=== PATIENT | female | born 1950 | race Caucasian/White ===

== ENCOUNTER → 2016-05-29 | Outpatient (CLI) | payer OTHER ==
[~2016-05-29] MED LIST: ACET-1256 PO; ALBU0.633 NEB; ALBU18002 INH; ALBUTEROL NEBULIZER NEB; ASPI81TA28 PO; CARV25TA2 PO; CELE100C PO; CLB/200 PO; CLB200 PO; DILT120C68 PO; ELQ25 PO; FRS/40 PO; GLIP10TA3 PO; INSDGI SC; KFZAV1 IV; LINA1TAB PO; LNX125 PO; METF-384 PO; MORP-157 PO; MULT-884 PO; NIAC500T11 PO; OMEG10007 PO; ONDA8TAB6 PO; OXGN; OXYC1TAB3 PO; POTA20TA16 PO; RFM300 PO; RXC5 PO; SENN-61 PO; SNK PO; SPIR25TA PO; TPZ5 PO
[2016-05-29 09:56] LABS: ESTIMATED AVERAGE GLUCOSE 189 mg/dl; HA1C FLAG Normal (Normal)
== END | disposition home or self-care (01) ==
LOC: C.LAB 08:36
PROVIDERS: ATTEND General Practice
DX: E11.9 Type 2 diabetes mellitus without complications (principal)

== ENCOUNTER → 2016-07-23 | Outpatient (CLI) | payer OTHER ==
[2016-07-23 10:11] LABS: ESTIMATED AVERAGE GLUCOSE 166 mg/dl; HA1C FLAG Normal (Normal)
== END | disposition home or self-care (01) ==
LOC: C.LAB 08:28
PROVIDERS: ATTEND General Practice
DX: E11.65 Type 2 diabetes mellitus with hyperglycemia (principal)

== ENCOUNTER → 2016-08-23 | Outpatient (CLI) | payer OTHER ==
[2016-08-23 13:01] LABS: ESTIMATED AVERAGE GLUCOSE 166 mg/dl; HA1C FLAG Normal (Normal)
== END | disposition home or self-care (01) ==
LOC: C.LAB 10:44
PROVIDERS: ATTEND General Practice
DX: E11.65 Type 2 diabetes mellitus with hyperglycemia (principal)

== ENCOUNTER 2016-09-18 06:26 | Inpatient (IN) | payer OTHER ==
--- NOTE | 2016-08-31 14:18 | PAT Medication Instructions ---
Service Date Aug 31, 2016. Current Home Medication List Acetaminophen (Tylenol), 1,000 MG PO Q8 PRN for Pain Albuterol Sulfate (Proair Respiclick), 2 PUFF INH Q4 PRN for SOB/Wheezing Apixaban (Eliquis), 5 MG PO BID Aspirin (Aspirin Ec), 81 MG PO QAM Carvedilol (Coreg), 25 MG PO BID Celecoxib (Celebrex), 100 MG PO Q2D Digoxin (Digoxin), 1 TAB PO HS Diltiazem Hcl Ext Rel (Tiazac), 120 MG PO HS Fish Oil (Hudson-3), 1 CAP PO BID Furosemide (Lasix), 40 MG PO BID Glipizide (Glucotrol), 10 MG PO BID Insulin Glargine (Lantus), 12 UNITS SC HS Linagliptin (Tradjenta), 1 TAB PO QAM Metformin Hcl (Glucophage), 1,000 MG PO BID Multiple Vitamin (Multi Vitamin Daily), 1 TAB PO QAM Niacin (Niacin), 500 MG PO QAM Oxygen (Oxygen), 1.5-2 LITERS NA HS/PRN PRN for Shortness of Breath Spironolactone (Aldactone), 25 MG PO QAM [Albuterol Nebulizer], 1 DOSE NEB Q4 PRN for SOB/Wheezing Medication Instructions For Your Scheduled Surgery - Check with surgeon/cardiology/family doctor for instructions: Apixaban (Eliquis), 5 MG PO BID (patient made aware that she needs to be off Eliquis for 72 hours prior to surgery in order for spinal block to be placed-- she will check with PCP/black top paver operator to see if okay from them) Oxygen (Oxygen), 1.5-2 LITERS NA HS/PRN PRN for Shortness of Breath (continue as directed) Celecoxib (Celebrex), 100 MG PO Q2D (check with surgeon for instructions) - Hold the following medications 2 weeks prior to surgery: Fish Oil (Hudson-3), 1 CAP PO BID - Hold the following medications 48 hours prior to surgery: Metformin Hcl (Glucophage), 1,000 MG PO BID - Hold the following medications the morning of surgery: Spironolactone (Aldactone), 25 MG PO QAM Niacin (Niacin), 500 MG PO QAM Multiple Vitamin (Multi Vitamin Daily), 1 TAB PO QAM Linagliptin (Tradjenta), 1 TAB PO QAM Glipizide (Glucotrol), 10 MG PO BID Furosemide (Lasix), 40 MG PO BID - Take the following medications the morning of surgery with a sip of water: [Albuterol Nebulizer], 1 DOSE NEB Q4 PRN for SOB/Wheezing Carvedilol (Coreg), 25 MG PO BID Aspirin (Aspirin Ec), 81 MG PO QAM Albuterol Sulfate (Proair Respiclick), 2 PUFF INH Q4 PRN for SOB/Wheezing ( bring with you to hospital morning of surgery) Acetaminophen (Tylenol), 1,000 MG PO Q8 PRN for Pain - Take the following medications as scheduled the night before surgery: [Albuterol Nebulizer], 1 DOSE NEB Q4 PRN for SOB/Wheezing Insulin Glargine (Lantus), 12 UNITS SC HS Glipizide (Glucotrol), 10 MG PO BID Furosemide (Lasix), 40 MG PO BID Diltiazem Hcl Ext Rel (Tiazac), 120 MG PO HS Digoxin (Digoxin), 1 TAB PO HS Carvedilol (Coreg), 25 MG PO BID Albuterol Sulfate (Proair Respiclick), 2 PUFF INH Q4 PRN for SOB/Wheezing Acetaminophen (Tylenol), 1,000 MG PO Q8 PRN for Pain If you have any questions please call us at [phone] (Ivon Baldwin PA-C) or [phone] or [phone]
[2016-08-31 14:44] LABS: BASO % 0.1 %; BASO ABS # 0.01 K/uL (0-0.2); COMPLETE YES; EOS % 0.6 %; HEMATOCRIT 39.5 % (37-47); IG% 0.1 %; LYMPH % 34.7 %; LYMPH ABS # 2.97 K/uL (1.2-3.4); MEAN CELL VOLUME 84.9 fL (80-100); MEAN CORPUSCULAR HEMOGLOBIN 28.6 pg (25-34); MEAN CORPUSCULAR HGB CONC 33.7 g/dl (32-36); MEAN PLATELET VOLUME 10.4 fL (7.4-10.4); MONO % 5.4 %; NEUT % 59.1 %; PLATELET COUNT 246 K/uL (130-400); RED BLOOD COUNT 4.65 M/uL (4.2-5.4); WHITE BLOOD COUNT 8.56 K/uL (4.8-10.8)
[2016-08-31 14:52] LABS: URINE APPEARANCE CLEAR (CLEAR); URINE BILIRUBIN NEG (NEG); URINE COLOR DK YELLOW; URINE EPITHELIAL CELL AUTO >30 /lpf (0-5); URINE NITRITE NEG (NEG); URINE SPECIFIC GRAVITY 1.028 (1.000-1.030); UROBILINOGEN NEG (NEG); ZZUR CULT IF INDIC CLEAN CATCH NO
[2016-08-31 14:54] LABS: PROTHROMBIN TIME (PATIENT) 10.2 SECONDS (9.0-12.0)
[2016-08-31 14:58] LABS: MANUAL MICROSCOPIC REQUIRED? NO; REVIEW REQ? NO
--- NOTE | 2016-08-31 14:58 | DIAGNOSTIC IMAGING REPORT ---
CHEST 2 VIEWS ROUTINE CLINICAL HISTORY: pat preoperative evaluation COMPARISON STUDY: 04/10/2016 FINDINGS: Permanent bipolar cardiac pacemaker/defibrillator. Mild emphysematous change. No acute infiltrate. Moderate degenerative change thoracic spine. IMPRESSION: Chronic and mild emphysematous change. No acute process. Electronically signed by: Brannon Stone M.D. 08/31/2016 2:56 PM Dictated Date/Time: 08/31/2016 2:55 PM
[2016-08-31 15:27] LABS: BUN/CREATININE RATIO 19.2 (10-20); CALCIUM 8.9 mg/dl (8.5-10.1); CREATININE 1.3 mg/dl (0.60-1.20)
--- NOTE | 2016-09-17 11:11 | HISTORY & PHYSICAL EXAMINATION ---
DATE OF ADMISSION: 09/18/2016 CHIEF COMPLAINT: Right knee pain. HISTORY OF PRESENT ILLNESS: Ms. Pierce is a 66-year-old female with a 10-year history of right knee pain. The patient rates her pain an 8/10. She has pain with her daily activities. She has limited standing and walking tolerance. Pain is worse with weightbearing. The patient has had injections, Celebrex, knee brace and physical therapy without relief. She has failed conservative treatment and is scheduled for right knee replacement. PAST MEDICAL HISTORY: CHF, heart disease with [place] in 2013, asthma, diabetes with A1c of 7.4, AFib. She denies history of DVT. PAST SURGICAL HISTORY: Cholecystectomy, tonsillectomy, pacemaker and hernia repair. SOCIAL HISTORY: The patient denies alcohol or tobacco use. She lives in a single story home. She lives alone. 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 FAMILY HISTORY: Negative for DVT. MEDICATIONS: Lantus 12 units at bedtime, glipizide 10 mg twice daily, Eliquis 5 mg twice daily, spironolactone 25 mg daily, carvedilol 25 mg b.i.d., metformin 1000 mg twice daily, fish oil 300 mg twice daily, diltiazem 120/24 daily, digoxin 0.125 mg daily, Tradjenta 5 mg daily, furosemide 40 mg twice daily, niacin 500 mg daily, multivitamin 1 daily, oxygen p.r.n., albuterol p.r.n., Celebrex twice daily. ALLERGIES: None. REVIEW OF SYSTEMS: See HPI. Ten other systems reviewed, all negative. PHYSICAL EXAMINATION: VITAL SIGNS: Height 5 foot 6 inches, weight 184 pounds, BMI 28. GENERAL: This is a well-developed, well-nourished female who is alert and oriented x3. Mood and affect are appropriate. HEAD, EYES, EARS, NOSE, AND THROAT: Normocephalic, atraumatic. Mucous membranes are moist and intact. NECK: Supple without lymphadenopathy. HEART: Regular rate and rhythm without murmurs, rubs or gallops. LUNGS: Clear to auscultation without wheezes or rhonchi. ABDOMEN: Soft and nontender. Bowel sounds are equal and active. EXTREMITIES: No ecchymosis, redness or warmth. She has varus deformity. Range of motion is 10-115 degrees with +1 to 2 laxity. She is neurovascularly intact with +5/5 strength. X-RAY EXAMINATION: AP and lateral views show joint space narrowing and osteophyte formation. She has loose bodies noted throughout the medial aspect. IMPRESSION: Degenerative joint disease, right knee. PLAN: The patient will be admitted for a right total knee arthroplasty. We will plan on resuming her Eliquis for DVT prophylaxis.
[2016-09-18] VITALS (10 sets, daily range): BP systolic 108–131; BP diastolic 51–82; PULSE 61–70; TEMP 36.4–36.9; O2SAT 92–98; Ht 167.6 cm; Wt 85.6 kg
[~2016-09-18] VITALS: Ht 167.6 cm; Wt 85.6 kg
[~2016-09-18 06:26] MED LIST changes: +ACETAMINOPHEN 500 MG TAB PO SCH; -ALBU0.633 NEB; +CEFAZOLIN 2000 MG/60 ML D5W 60 ML IV SCH; -CLB/200 PO; -CLB200 PO; +CeleBREX 200 MG CAP PO SCH; +FAMOTIDINE 20 MG TAB PO SCH; +GABAPENTIN 300 MG CAP PO SCH; -KFZAV1 IV; +LACTATED RINGER'S 1000ML 1,000 ML IV SCH; +METOCLOPRAMIDE HCL 10 MG TAB PO SCH; -MORP-157 PO; -ONDA8TAB6 PO; -OXYC1TAB3 PO; +OXYCODONE HCL 10 MG TABCR (OXYCONTIN) PO SCH; +POLYMYXIN B SULFATE 100,000 UNITS in NSS 100ML IR SCH; -POTA20TA16 PO; -RFM300 PO; +ROPIVACAINE 5MG/ML 30 ML 100 MG, METHYLPREDNISOLONE IV 40 MG, MoRPHine SULFATE 4 MG, Ep... INFIL SCH; +ROPIVACAINE 5MG/ML 30 ML 150 MG, BUPIVACAINE/EPINEPHR 0.5% MPF 30 ML, KETOROLAC TROMETH... INFIL SCH; -RXC5 PO; -SENN-61 PO; -SNK PO; -TPZ5 PO; +VANCOMYCIN INJ 400 MG in NSS 100ML IR SCH
[2016-09-18] MEDS ORDERED: FENTANYL CITRATE INJ 50 MCG/1 ML 2 ML VIAL ONE (06:56)
[2016-09-18] MEDS ORDERED: MIDAZOLAM HCL 1 MG/ML 2ML VIAL ONE ×2 (06:56)
--- NOTE | 2016-09-18 06:59 | History & Physical Bridge Note ---
H&P Re-Evaluation Bridge Note: I have examined the patient, reviewed the History & Physical and in the interval since the performance of the History & Physical I have noted the following changes of clinical significance: No changes noted
[2016-09-18] MEDS ORDERED: POVIDONE-IODINE OP SOLN 30 ML BTL ONE (07:03)
[2016-09-18] MEDS ORDERED: ORTHO JOINT ANESTHETIC ONE (07:03)
[2016-09-18] MEDS ORDERED: BACITRACIN 50000 UNIT VIAL ONE (07:03)
[2016-09-18] MEDS ORDERED: BUPIVACAINE/EPINEPHRINE 0.25% 1:200,000 30 ML VIAL ONE (07:03)
[2016-09-18] MEDS ORDERED: BUPIVACAINE 0.25% 30 ML VIAL ONE (07:15)
[2016-09-18] MEDS ORDERED: BUPIVACAINE 0.5 % 5 MG/1 ML PF 10ML VIAL ONE (07:15)
[2016-09-18] MEDS: TRANEXAMIC ACID INJ 1,000 MG in SODIUM CHLORIDE 0.9% 100ML 100 ML IV SCH ×2 (08:23→13:16)
[2016-09-18] MEDS ORDERED: PROPOFOL IV EMULSION 10 MG/ML 20 ML VIAL IV ONE (09:12)
[2016-09-18] MEDS ORDERED: LIDOCAINE HCL 2% 2 ML VIAL (20MG/ML) ONE (09:12)
[2016-09-18] MEDS ORDERED: PHENYLEPHRINE 100MCG/ML 5ML SYR IV PRN (09:15)
[2016-09-18] MEDS ORDERED: ONDANSETRON INJ 2 MG/ML 2 ML VIAL IV PRN ×2 (09:15→10:00)
[2016-09-18] MEDS ORDERED: HYDROmorphone INJ 2 MG/ML SYR/VIAL IV PRN (09:15)
[2016-09-18] MEDS ORDERED: EpHEDrine SULFATE INJ 50 MG/ML AMP IV PRN (09:15)
[2016-09-18] MEDS ORDERED: KETOROLAC TROMETHAMINE 30 MG/ML VIAL IV. PRN (09:15)
[2016-09-18] MEDS ORDERED: ATROPINE SULFATE 0.1 MG/ML 5ML SYR IV PRN (09:15)
[2016-09-18] MEDS ORDERED: PHENYLEPHRINE 100MCG/ML 5ML SYR ONE (09:22)
[2016-09-18] MEDS ORDERED: ZOLPIDEM TARTRATE 5 MG TAB PO PRN (10:00)
[2016-09-18] MEDS ORDERED: MoRPHine SULFATE 2 MG/ML CARP IV PRN (10:00)
[2016-09-18] MEDS ORDERED: DiphenhydrAMINE HCL 50 MG/ML VIAL IV PRN (10:00)
[2016-09-18] MEDS ORDERED: TRAMADOL HCL 50 MG TAB PO PRN (10:00)
[2016-09-18] MEDS ORDERED: ALBUTEROL HFA 8 GM INHALER INH PRN (10:00)
[2016-09-18] MEDS ORDERED: KETOROLAC TROMETHAMINE 15 MG/ML VIAL IV. PRN (10:00)
[2016-09-18] MEDS ORDERED: METOCLOPRAMIDE HCL INJ 5 MG/ML 2 ML VIAL IV PRN (10:00)
[2016-09-18] MEDS ORDERED: SOD PHOSPHATE/SOD BIPHOSPHATE ENEMA 132 ML BTL PR PRN (10:00)
[2016-09-18] MEDS ORDERED: MAGNESIUM HYDROXIDE SUSP 30 ML UDC PO PRN (10:00)
[2016-09-18] MEDS ORDERED: ALUMINUM/MAGNESIUM/SIMETH (MAALOX MAX) 30 ML UDC PO PRN (10:00)
[2016-09-18] MEDS ORDERED: BISACODYL 10 MG SUPP PR PRN (10:00)
--- NOTE | 2016-09-18 11:18 | DIAGNOSTIC IMAGING REPORT ---
RIGHT KNEE 1 OR 2 VIEWS ROUTINE CLINICAL HISTORY: Degenerative arthritis COMPARISON: None. DISCUSSION: There are postsurgical changes of a total right knee arthroplasty and patellar resurfacing. The femoral and tibial components appear well seated. Ovoid surgical drains are evident. There is air in soft tissues consistent with recent surgery. Multiple eggshell calcifications are suspected visualized adjacent to the medial tibial metaphysis IMPRESSION: Postsurgical changes of a total right knee arthroplasty. Electronically signed by: Jaison Gallo M.D. 09/18/2016 11:16 AM Dictated Date/Time: 09/18/2016 11:14 AM
--- NOTE | 2016-09-18 11:40 | Anesthesiology Progress Note ---
Anesthesia Post Op Note Date & Time Sep 18, 2016 at 11:39 Vital Signs Pain Intensity: 0 Vital Signs Past 12 Hours Date Time Temp Pulse Resp B/P Pulse Ox O2 Delivery O2 Flow Rate FiO2 09/18/16 11:20 36.3 64 16 127/59 96 Nasal Cannula 2 09/18/16 11:10 64 16 113/60 96 Nasal Cannula 2 09/18/16 11:00 64 16 117/60 96 Nasal Cannula 2 09/18/16 10:50 64 16 105/59 96 Nasal Cannula 2 09/18/16 10:40 36.4 64 16 106/60 99 Nasal Cannula 2 09/18/16 07:13 36.5 66 18 115/51 93 Room Air Notes Mental Status: alert / awake / arousable, participated in evaluation Pt Amnestic to Procedure: Yes Nausea / Vomiting: adequately controlled Pain: adequately controlled Airway Patency, RR, SpO2: stable & adequate BP & HR: stable & adequate Hydration State: stable & adequate Anesthetic Complications: no major complications apparent
[2016-09-18] MEDS ORDERED: GLUCAGON FOR INJ 1 MG VIAL SQ PRN (13:00)
[2016-09-18] MEDS ORDERED: GLUCOSE 10 TABS/TUBE PO PRN (13:00)
[2016-09-18] MEDS ORDERED: DEXTROSE 50% 50 ML SYR IV PRN (13:00)
[2016-09-18] MEDS ORDERED: GLUCOSE 40% GEL 15 GM TUBE PO PRN (13:00)
[2016-09-18] MEDS ORDERED: PHARMACY GLYCEMIC MGMT CONSULT PRN (13:12)
[2016-09-18] MEDS ORDERED: ALBUTEROL 0.083% NEBU SOLN 3 ML VIAL INH PRN (13:15)
[2016-09-18] MEDS: SODIUM CHLORIDE 0.9% 1000ML 1,000 ML IV SCH ×2 (13:18→20:55)
--- NOTE | 2016-09-18 13:36 | Pharmacy Progress Note ---
Glycemic Control Intl Consult Date of Service Sep 18, 2016. Scope Glycemic Pharmacist consulted by Dr Juan Mays on 09/18/16 for glycemic control and to write orders per [facility] inpatient glycemic control protocol Objective Weight (Kilograms): 85.600 Accuchecks BSG (last 24hrs): Test 09/18/16 07:11 09/18/16 10:47 Bedside Glucose 208 mg/dl (70-90) 162 mg/dl (70-90) Recent Pertinent Medications Outpatient Anti-diabetic Regimen: * Lantus 12 units SQ q PM * Glipizide 10mg PO BID with meals * Metformin 1000mg PO BID * Linagliptin 5mg PO q AM * A1c = 7.4 % 08/23/16 The patient is currently receiving: * Basal insulin: * Lantus 12 units every 24 hours, dose in the evening * Oral Agents: * glipizide 10mg PO BID * linagliptin 5mg PO q AM Risk Factors for Insulin Resistance: * Infection: cefazolin marybel-operatively * IVF: LR --> NSS post-operatively * Recent Surgery: POD #0 right TKA * Diet: T2DM Assessment & Plan ASSESSMENT: * ADA & AACE recommend a goal blood sugar range 140-180 mg/dl for the majority of critically ill & non-critically ill patients. However, more stringent targets may be selected in individual cases. Will utilize more stringent goal of 100-140mg/dl based on patient age & comorbidities. Additionally, tighter glycemic control is warranted to facilitate wound/infection healing. * 66 y/o who enjoys good glycemic control as an outpatient with both injectable and oral diabetic medications * Oral agents are not recommended for inpatient use d/t drug interactions, changing PO intake, and difficulty titrating for acute hyper/hypoglycemia. ADA recommends re-initiating outpatient oral agents 1-2 days prior to discharge if/ when appropriate if they were held on admission. * Current A1c 7.4% is at/near goal and up to date * Admitted post right TKA with Dr. Mays 09/18/16 * BSG on admission (fasting) slightly elevated at 208mg/dL, but trended down toward goal without the administration of insulin (IV fluids, NPO status) * Continue home basal insulin (would normally reduce, however bsg elevated this AM on fasting check) * No steroids administered perioperatively * Current oral medications will be held until PO intake established/closer to discharge * Begin bolus insulin with NovoLog to replace PO medications while admitted * sliding scale plus prandial coverage based on weight * titrate based on BSG trends. PLAN FOR INPATIENT GLYCEMIC CONTROL: * Basal insulin with Lantus * 12 units SQ q PM * Bolus insulin with NovoLog * Accu-checks AC and HS * Goal range: 100-140mg/dL as per above * Correction factor: 30 mg/dL/unit * Carb ratio: 1 unit per 10 g of CHO consumed * Oral agents: * Hold metformin * hold glipizide * hold linagliptin * A1c - current * add to discharge instructions RECOMMENDATIONS FOR DISCHARGE: * Likely, Ms Pierce can continue her home regimen based on her level of glycemic control from A1c. * Please note that the plan above was derived based on current level of insulin resistance and hospital stress. These recommendations are appropriate for inpatient admission only. Plan of care upon discharge will need to be reassessed to avoid potential outpatient hypo/hyperglycemia. Thank you.
[2016-09-18] MEDS: ACETAMINOPHEN 500 MG TAB PO SCH ×2 (13:58→22:13)
--- NOTE | 2016-09-18 16:59 | OPERATIVE REPORT ---
DATE OF OPERATION: 09/18/2016 PREOPERATIVE DIAGNOSIS: Degenerative arthritis, right knee. POSTOPERATIVE DIAGNOSIS: Same. PROCEDURE: Right total knee replacement. SURGEON: Dr. Nando Mays. MACHINE MAINTENANCE REPAIRER: MOJGAN Washburn. ANESTHESIA: Spinal. BLOOD LOSS: 75 mL. REPLACEMENT FLUIDS: 1800 mL of crystalloid. DRAINS: Hemovac x2. CULTURES: None. COMPLICATIONS: None. COMPONENTS USED: [facility] Knee System: Femur size 6, tibia size 5 x 11, and patella size 35. NOTE: Ian Alvarez was present and assisted throughout due to the complicated nature of this case. He helped with preparation and setup. He first assisted throughout and personally closed the capsule, subcutaneous and skin layers and applied the postoperative dressing. DESCRIPTION OF PROCEDURE: Following satisfactory spinal, the patient was supine. A tourniquet was placed, but not inflated. The lower extremity was prepared with ChloraPrep and draped sterilely. Following a surgical timeout, a median parapatellar arthrotomy was performed. The patient had a large subcutaneous fat layer with a very heavy leg and severe arthritis. The IM alignment system with a 5-degree valgus cut was performed. The femur was sized and shaped for a size 6 posterior stabilized component and all femoral cuts were completed. Attention was turned to the femur. The femur was resected with the extramedullary alignment guide in neutral varus/valgus and 3 degrees of posterior slope. The patella was freehand cut. Soft tissue balancing was completed and a trial reduction showed good tensioning and stability on the collateral ligaments, stable range of motion, and the patella tracked well. The trial components were removed. The capsule was prepared with the orthopedic cocktail. After irrigation, the components were cemented using Simplex G cement. A Betadine soak was performed. When the cement had hardened, the Betadine was irrigated. The capsule was closed with a running suture of 0 V-Loc and reinforced with #1 Vicryl. Subcutaneous tissues in the fatty layer was closed in layers with #1 and 2-0 Vicryl and the skin with a running subcuticular stitch of 3-0 V-Loc. Dermabond, silver nitrate dressing and Prevena wound VAC were applied. The patient was returned to her bed in stable condition. I attest to the content of the Intraoperative Record and any orders documented therein. Any exceptio ns are noted below.
[2016-09-18] MEDS ORDERED: TRANEXAMIC ACID INJ 1,000 MG in SODIUM CHLORIDE 0.9% 100ML 100 ML IV SCH (17:00)
[2016-09-18] MEDS: FUROSEMIDE 40 MG TAB PO SCH (17:04)
[2016-09-18] MEDS: DIGOXIN 0.125 MG TAB PO SCH (17:04)
[2016-09-18] MEDS: CEFAZOLIN IV 2,000 MG in DEXTROSE 5% 50ML 50 ML IV SCH (18:04)
[2016-09-18] MEDS: INSULIN ASPART 100 UNITS/ML 3 ML PEN SC SCH ×2 (18:49→20:52)
[2016-09-18] MEDS: OXYCODONE HCL 10 MG TABCR (OXYCONTIN) PO SCH (20:55)
[2016-09-18] MEDS: SENNA 8.6 MG TAB PO SCH (20:59)
[2016-09-18] MEDS: CARVEDILOL 25 MG TAB PO SCH (20:59)
[2016-09-18] MEDS: DILTIAZEM HCL 120 MG EXT REL CAP PO SCH (21:00)
[2016-09-18] MEDS: INSULIN GLARGINE SOLOSTAR 100 UNITS/ML 3 ML PEN SC SCH (21:04)
[2016-09-19] MEDS: CEFAZOLIN IV 2,000 MG in DEXTROSE 5% 50ML 50 ML IV SCH (02:18)
[2016-09-19 03:22] VITALS: BP 119/63; PULSE 60; TEMP 36.6; O2SAT 94
[2016-09-19 06:01] LABS: HEMATOCRIT 33.3 % (37-47); MEAN CELL VOLUME 86.5 fL (80-100); MEAN CORPUSCULAR HEMOGLOBIN 28.3 pg (25-34); MEAN CORPUSCULAR HGB CONC 32.7 g/dl (32-36); MEAN PLATELET VOLUME 10.4 fL (7.4-10.4); PLATELET COUNT 229 K/uL (130-400); RED BLOOD COUNT 3.85 M/uL (4.2-5.4); WHITE BLOOD COUNT 12.84 K/uL (4.8-10.8)
--- NOTE | 2016-09-19 06:02 | Clinical Documentation Query ---
CLINICAL DOCUMENTATION QUERY 66-y/o female who has undergone right TKR. H&P mentions this patient as having CHF. The medical record documentation is now expected to include definitive and explicit description of the patient's heart failure; vague terms such as "heart failure," ventricular dysfunction," and "CHF" may not fully capture the physician's intended level of severity. In your clinical opinion is this patient being managed for: ( ) Chronic diastolic (Preserved EF) heart failure ( ) Chronic Systolic (Reduced EF) heart failure ( ) Other explanation of clinical findings (Please Explain) ( ) Unable to determine (Please Define) ( ) Need to Discuss ( ) Not Agree The medical record reflects the following clinical findings, treatment, and risk factors. Clinical Indicators: As above. On PO Lasix at home Treatment: PO Lasix, Coreg, Diltiazem, Digoxin, Risk Factors: Age, CAD s/p [place], and AFib Please clarify and document your clinical opinion in the progress notes and discharge summary. Terms such as "probable", "suspected", "likely", "questionable", "possible", or "still to be ruled out" are acceptable. IF IN AGREEMENT, YOU MUST DOCUMENT ABOVE DIAGNOSTIC STATEMENT IN DAILY PROGRESS NOTES AND DISCHARGE SUMMARY. This document is not part of the patient's record. Thank You, Jb Becker RN [phone]
[2016-09-19] MEDS: SODIUM CHLORIDE 0.9% 1000ML 1,000 ML IV SCH (06:13)
[2016-09-19] MEDS: ACETAMINOPHEN 500 MG TAB PO SCH ×3 (06:14→22:08)
[2016-09-19 06:35] LABS: BUN/CREATININE RATIO 18.6 (10-20); CALCIUM 8.5 mg/dl (8.5-10.1); CREATININE 0.91 mg/dl (0.60-1.20); POTASSIUM 4.5 mmol/L (3.5-5.1)
[2016-09-19 07:32] VITALS: BP 134/76; PULSE 60; TEMP 36.6; O2SAT 96
--- NOTE | 2016-09-19 08:13 | Orthopedic Progress Note ---
Orthopedic Progress Note Date of Service Sep 19, 2016. Subjective Post OP Day: 1 Reports: feeling well, Denies: SOB, calf pain, chest pain, light headedness, nausea / vomiting Objective calves soft nontender, N/V intact, dressing C/D/I (PREVENA), A&O x3, toes mobile , hemovac drainage (225/125cc per shift) Date Time Temp Pulse Resp B/P Pulse Ox O2 Delivery O2 Flow Rate FiO2 09/19/16 07:32 36.6 60 16 134/76 96 Room Air 09/19/16 03:22 36.6 60 16 119/63 94 Nasal Cannula 2.0 09/18/16 23:30 36.8 61 16 116/65 96 Nasal Cannula 2.0 09/18/16 23:19 Nasal Cannula 2.0 09/18/16 20:50 70 131/73 09/18/16 19:51 36.5 62 18 127/82 92 Nasal Cannula 2.0 09/18/16 17:04 72 09/18/16 16:00 Room Air 2.0 09/18/16 15:04 36.4 65 18 111/68 97 Nasal Cannula 09/18/16 14:45 64 18 108/68 96 Nasal Cannula 2.0 09/18/16 13:45 63 16 117/68 95 Nasal Cannula 2.0 09/18/16 12:44 65 16 120/75 95 Nasal Cannula 2.0 09/18/16 12:13 36.5 67 20 126/71 98 Nasal Cannula 2.0 09/18/16 11:45 36.9 67 16 110/68 95 Nasal Cannula 2.0 09/18/16 11:45 95 Nasal Cannula 2.0 09/18/16 11:45 95 Nasal Cannula 2.0 09/18/16 11:20 36.3 64 16 127/59 96 Nasal Cannula 2 09/18/16 11:10 64 16 113/60 96 Nasal Cannula 2 09/18/16 11:00 64 16 117/60 96 Nasal Cannula 2 09/18/16 10:50 64 16 105/59 96 Nasal Cannula 2 09/18/16 10:40 36.4 64 16 106/60 99 Nasal Cannula 2 Laboratory Results 24 Hours: Test 09/19/16 05:35 Hematocrit 33.3 % Hemoglobin 10.9 g/dL Assessment & Plan Assessment: POD#1 sp right TKA Inhouse Planning Pain Management: Celebrex, Oxycontin, PO Tylenol, Oxy IR DVT Prophylaxis: TEDs, SCDs, ASA, other (ELIQUIS) Discharge Planning Discharge Planning: home with home health ([facility])
[2016-09-19] MEDS: INSULIN ASPART 100 UNITS/ML 3 ML PEN SC SCH ×4 (08:58→20:53)
[2016-09-19] MEDS: FUROSEMIDE 40 MG TAB PO SCH ×2 (08:59→17:15)
[2016-09-19] MEDS: CARVEDILOL 25 MG TAB PO SCH ×2 (08:59→20:41)
[2016-09-19] MEDS: MULTIVITAMIN TAB PO SCH (08:59)
[2016-09-19] MEDS: PANTOprazole SOD 40 MG TAB PO SCH (08:59)
[2016-09-19] MEDS: NIACIN 500 MG TAB IMMEDIATE RELEASE PO SCH (09:00)
[2016-09-19] MEDS: SPIRONOLACTONE 25 MG TAB PO SCH (09:00)
[2016-09-19] MEDS ORDERED: NON-FORMULARY PATIENT'S OWN MED PO SCH (09:00)
[2016-09-19] MEDS: LINAGLIPTIN 5 MG TAB PO SCH (09:01)
[2016-09-19] MEDS: OXYCODONE HCL 10 MG TABCR (OXYCONTIN) PO SCH ×2 (09:08→20:41)
[2016-09-19] MEDS: APIXABAN 2.5 MG TAB PO SCH ×2 (10:04→20:42)
[2016-09-19] MEDS: ASPIRIN 81 MG ECTAB PO SCH (10:04)
[2016-09-19 11:09] VITALS: BP 112/64; PULSE 59; TEMP 36.7; O2SAT 93
[2016-09-19] MEDS: OXYCODONE HCL IR 5 MG TAB (IMMEDIATE RELEASE) PO PRN ×2 (12:12→20:13)
--- NOTE | 2016-09-19 13:14 | Anesthesiology Progress Note ---
Anesthesia Post Op Note Date & Time Sep 19, 2016 at 13:13 Vital Signs Pain Intensity: 9.0 Vital Signs Past 12 Hours Date Time Temp Pulse Resp B/P Pulse Ox O2 Delivery O2 Flow Rate FiO2 09/19/16 11:09 36.7 59 16 112/64 93 Room Air 09/19/16 07:55 Room Air 92 09/19/16 07:32 36.6 60 16 134/76 96 Room Air 09/19/16 03:22 36.6 60 16 119/63 94 Nasal Cannula 2.0 Notes Mental Status: alert / awake / arousable, participated in evaluation Pt Amnestic to Procedure: Yes Nausea / Vomiting: adequately controlled Pain: adequately controlled Airway Patency, RR, SpO2: stable & adequate BP & HR: stable & adequate Hydration State: stable & adequate Neuraxial Anesthesia: sensory block resolved Anesthetic Complications: no major complications apparent
--- NOTE | 2016-09-19 14:19 | Pharmacy Progress Note ---
Glycemic Control: Progress Nt Date of Service Sep 19, 2016. Scope Glycemic Pharmacist consulted by Dr Mays on 09/18/16 for glycemic control and to write orders per [facility] inpatient glycemic control protocol. Objective Accuchecks BSG (last 24hrs): Test 09/18/16 16:53 09/18/16 20:30 09/19/16 05:35 09/19/16 07:54 Bedside Glucose 233 mg/dl (70-90) 283 mg/dl (70-90) 231 mg/dl (70-90) Random Glucose 265 mg/dl (70-99) Test 09/19/16 12:06 Bedside Glucose 225 mg/dl (70-90) Laboratory Data (last 24hrs) Test 09/19/16 05:35 Anion Gap 5.0 mmol/L BUN/Creatinine Ratio 18.6 Blood Urea Nitrogen 17 mg/dl Creatinine 0.91 mg/dl Potassium Level 4.5 mmol/L Sodium Level 136 mmol/L White Blood Count 12.84 K/uL Recent Pertinent Medications Outpatient Anti-diabetic Regimen: * Lantus 12 units SQ q PM * Glipizide 10mg PO BID with meals * Metformin 1000mg PO BID * Linagliptin 5mg PO q AM * A1c = 7.4 % 08/23/16 The patient is currently receiving: * Basal insulin: * Lantus 12 units every 24 hours, dose in the evening * Bolus insulin: * NovoLog SC AC and HS * Correction factor 30mg/dL/unit * Carb ratio 1 unit per 10g of CHO consumed * Goal range 100-140mg/dL/unit * Oral Agents: * -[id number]- -1-0-m-g- -P-O- -B-I-D- (on hold) * linagliptin 5mg PO q AM Risk Factors for Insulin Resistance: * Recent Surgery: POD #1 right TKA * Diet: T2DM Assessment & Plan ASSESSMENT: * ADA & AACE recommend a goal blood sugar range 140-180 mg/dl for the majority of critically ill & non-critically ill patients. However, more stringent targets may be selected in individual cases. Will utilize more stringent goal of 100-140mg/dl based on patient age & comorbidities. Additionally, tighter glycemic control is warranted to facilitate wound/infection healing. * 66 y/o who enjoys good glycemic control as an outpatient with both injectable and oral diabetic medications * Oral agents are not recommended for inpatient use d/t drug interactions, changing PO intake, and difficulty titrating for acute hyper/hypoglycemia. ADA recommends re-initiating outpatient oral agents 1-2 days prior to discharge if/ when appropriate if they were held on admission. * Current A1c 7.4% is at/near goal and up to date * Admitted post right TKA with Dr. Mays 09/19/16 * BSGs elevated over the past 24 hours with basal/bolus regimen * tighten NovoLog parameters - may need to loosen tomorrow as oral antidiabetic agents "kick in" * continue same basal insulin (home dose) * Resume home metformin and linagliptin today to help achieve euglycemia * Continue to hold sulfonylurea until discharge as to not induce hypoglycemia PLAN FOR INPATIENT GLYCEMIC CONTROL: * Basal insulin with Lantus * 12 units SQ q PM * Bolus insulin with NovoLog * Accu-checks AC and HS * Goal range: 100-140mg/dL as per above * Correction factor: 25 mg/dL/unit * Carb ratio: 1 unit per 9 g of CHO consumed * Oral agents: * RESUME metformin * hold glipizide * RESUME linagliptin * A1c - current * add to discharge instructions RECOMMENDATIONS FOR DISCHARGE: * Likely, Ms Pierce can continue her home regimen based on her level of glycemic control from A1c. * Please note that the plan above was derived based on current level of insulin resistance and hospital stress. These recommendations are appropriate for inpatient admission only. Plan of care upon discharge will need to be reassessed to avoid potential outpatient hypo/hyperglycemia. Thank you.
[2016-09-19 16:03] VITALS: BP 151/79; PULSE 66; TEMP 36.4; O2SAT 95
[2016-09-19] MEDS: DIGOXIN 0.125 MG TAB PO SCH (16:18)
[2016-09-19] MEDS: METFORMIN HCL 500 MG TAB PO SCH (17:15)
[2016-09-19] MEDS: DILTIAZEM HCL 120 MG EXT REL CAP PO SCH (20:42)
[2016-09-19] MEDS: SENNA 8.6 MG TAB PO SCH (20:42)
[2016-09-19] MEDS: INSULIN GLARGINE SOLOSTAR 100 UNITS/ML 3 ML PEN SC SCH (20:54)
[2016-09-19 23:05] VITALS: BP 111/62; PULSE 71; TEMP 36.8; O2SAT 97
--- NOTE | 2016-09-20 05:21 | Clinical Documentation Query ---
CLINICAL DOCUMENTATION QUERY 66-y/o female who has undergone right TKR. H&P mentions this patient as having CHF. The medical record documentation is now expected to include definitive and explicit description of the patient's heart failure; vague terms such as "heart failure," ventricular dysfunction," and "CHF" may not fully capture the physician's intended level of severity. In your clinical opinion is this patient being managed for: ( ) Chronic diastolic (Preserved EF) heart failure ( ) Chronic Systolic (Reduced EF) heart failure ( ) Other explanation of clinical findings (Please Explain) ( ) Unable to determine (Please Define) (x ) Need to Discuss ( ) Not Agree The medical record reflects the following clinical findings, treatment, and risk factors. Clinical Indicators: As above. On PO Lasix at home Treatment: PO Lasix, Coreg, Diltiazem, Digoxin, Risk Factors: Age, CAD s/p [place], and AFib Please clarify and document your clinical opinion in the progress notes and discharge summary. Terms such as "probable", "suspected", "likely", "questionable", "possible", or "still to be ruled out" are acceptable. IF IN AGREEMENT, YOU MUST DOCUMENT ABOVE DIAGNOSTIC STATEMENT IN DAILY PROGRESS NOTES AND DISCHARGE SUMMARY. This document is not part of the patient's record. Thank You, Jb Becker RN [phone]
[2016-09-20] MEDS: ACETAMINOPHEN 500 MG TAB PO SCH (05:36)
[2016-09-20 07:29] VITALS: BP 127/66; PULSE 63; TEMP 36.6; O2SAT 92
[2016-09-20] MEDS: OXYCODONE HCL IR 5 MG TAB (IMMEDIATE RELEASE) PO PRN ×2 (07:38→11:35)
--- NOTE | 2016-09-20 07:58 | Orthopedic Progress Note ---
Orthopedic Progress Note Date of Service Sep 20, 2016. Subjective Post OP Day: 2 Reports: feeling well, Denies: SOB, calf pain, chest pain, light headedness, nausea / vomiting Objective calves soft nontender, N/V intact, dressing C/D/I, A&O x3, toes mobile Date Time Temp Pulse Resp B/P Pulse Ox O2 Delivery O2 Flow Rate FiO2 09/20/16 07:29 36.6 63 20 127/66 92 Room Air 09/20/16 07:25 Room Air 09/20/16 00:20 Nasal Cannula 2.0 09/19/16 23:05 36.8 71 16 111/62 97 Nasal Cannula 2.0 09/19/16 16:18 68 09/19/16 16:03 36.4 66 18 151/79 95 Nasal Cannula 2.0 09/19/16 15:49 Room Air 2.0 Nasal Cannula 09/19/16 11:09 36.7 59 16 112/64 93 Room Air Assessment & Plan Assessment: POD#2 sp right TKA Inhouse Planning Pain Management: Celebrex, Oxycontin, PO Tylenol, Oxy IR DVT Prophylaxis: TEDs, SCDs, ASA, other (ELIQUIS) Discharge Planning Discharge Planning: home with home health ([facility])
--- NOTE | 2016-09-20 07:59 | Discharge Instructions ---
Discharge Instructions Date of Service Sep 20, 2016. Admission Reason for Admission: Right Knee Degenerative Arthritis Discharge Discharge Diagnosis / Problem: SP RIGHT TKA Discharge Goals Goal(s): Decrease discomfort, Improve function, Increase independence Activity Recommendations Activity Limitations: per Instructions/Follow-up section . Instructions / Follow-Up Instructions / Follow-Up ACTIVITY RECOMMENDATIONS: SELF CARE INSTRUCTIONS AFTER TOTAL KNEE REPLACEMENT A. You may need to continue a physical therapy program after discharge from the hospital. There are several options available to you. Your doctor will assist you in selecting the best one for you. 1. An out-patient facility 2 to 3 times a week for therapy or home therapy. 2. Continue working on all exercises taught to you in the hospital. Your goals should be to increase bending of your knee to 90 degrees and beyond and to fully straighten your knee. B. You may progress at your own pace from walking with a walker or crutches to a cane; then to no assistive devices. C. Make walking a part of your daily routine. Be up as much as comfortable with rest periods throughout the day. Rest with leg elevation is very important. Use the ice wrap frequently for the first 3-4 weeks. D. There are no restrictions on activities. You may ride in a car, shop, participate in investigation division captain and all social activities. E. Wear the long elastic stockings (PARAMJIT hose) 20 hours a day for 2 weeks after surgery. They can be removed several times a day for laundering and for a bath. F. You may shower, no tub baths until cleared by your doctor. SPECIAL CARE INSTRUCTIONS: VERY IMPORTANT TO READ AND REVIEW A. There are a few signs you need to watch for after you are home. Call [facility] if you notice any of the followin. Increased severe knee pain. Some pain is expected especially when you exercise. 2. Increased swelling in your leg or knee; pain or swelling of the calf muscle in either lower leg. 3. Any fluid drainage from the incision. 4. Shortness of breath or chest pain. B. Please call [facility] at if you have any concerns or questions about your operation or recovery. The doctor or his nurse will return your call promptly. C. You must take antibiotics before dental work, bladder, bowel or other surgery. Your doctor will provide you with a permanent care to carry describing this precaution. IMPORTANT: * REMEMBER TO TAKE ASPIRIN, 81 MG, TWICE DAILY FOR 4 WEEKS UNLESS OTHERWISE DIRECTED. THIS IS YOUR BLOOD THINNER. * HIGH RISK PATIENTS MAY BE PRESCRIBED A STRONGER BLOOD THINNER. THIS WILL BE PROVIDED AT DISCHARGE. - RESUME ELIQUIS * CALL IF INCREASED PAIN, REDNESS, DRAINAGE OR FEVER GREATER THAT 101. * WEAR PARAMJIT HOSE 20 HOURS PER DAY FOR 2 WEEKS. Prevena- This is a large suction dressing covering your incision. This will help pull any excess drainage from the wound and allow your incision to heal properly. You may shower with this if you can keep the unit outside of the shower. If any bleeding or leakage is noted please call your doctor's office. This will remain on your incision for 7 days and then should be removed. This can be done yourself or by the home nursing staff if applicable. The entire unit is disposable once removed. Once removed, keep incision clean and dry. If redness or drainage is noted, please call your surgeon. FOLLOW UP VISIT: If appointment is not already scheduled: Please call [facility] to make a follow-up appointment for 2 weeks after your surgery at . Current Hospital Diet Patient's current hospital diet: Diabetes Type 2 Diet Discharge Diet Recommended Diet: Regular Diet Procedures Procedures Performed: Right Total Knee Arthroplasty Pending Studies Studies pending at discharge: no Laboratory Results Hemoglobin A1c Test 08/23/16 11:05 Range/Units Estimated Average Glucose 166 mg/dl Hemoglobin A1c 7.4 H 4.5-5.6 % Medical Emergencies . Who to Call and When: Medical Emergencies: If at any time you feel your situation is an emergency, please call 911 immediately. . Non-Emergent Contact Non-Emergency issues call your: Surgeon . "Provider Documentation" section prepared by Tiff Kapoor. . VTE Core Measure Inpt VTE Proph given/why not?: Other Anticoagulation, T.E.D. Stockings, SCD's [place] Drug Monitoring Program Search Results: patient reviewed within database, no issues identified
[2016-09-20] MEDS ORDERED: MORP-157 PO (08:03)
[2016-09-20] MEDS ORDERED: RXC5 PO (08:03)
[2016-09-20] MEDS ORDERED: ONDA8TAB6 PO (08:03)
[2016-09-20] MEDS ORDERED: SNK PO (08:03)
[2016-09-20] MEDS ORDERED: ACET-1256 PO (08:03)
[2016-09-20] MEDS ORDERED: CLB200 PO (08:03)
[2016-09-20] MEDS: PANTOprazole SOD 40 MG TAB PO SCH (08:47)
[2016-09-20] MEDS: METFORMIN HCL 500 MG TAB PO SCH (08:47)
[2016-09-20] MEDS: CARVEDILOL 25 MG TAB PO SCH (08:48)
[2016-09-20] MEDS: SPIRONOLACTONE 25 MG TAB PO SCH (08:48)
[2016-09-20] MEDS: ASPIRIN 81 MG ECTAB PO SCH (08:49)
[2016-09-20] MEDS: NIACIN 500 MG TAB IMMEDIATE RELEASE PO SCH (08:49)
[2016-09-20] MEDS: APIXABAN 2.5 MG TAB PO SCH (08:50)
[2016-09-20] MEDS: MULTIVITAMIN TAB PO SCH (08:50)
[2016-09-20] MEDS: FUROSEMIDE 40 MG TAB PO SCH (08:50)
[2016-09-20] MEDS: LINAGLIPTIN 5 MG TAB PO SCH (08:51)
[2016-09-20] MEDS: INSULIN ASPART 100 UNITS/ML 3 ML PEN SC SCH ×2 (08:55→13:09)
[2016-09-20] MEDS: OXYCODONE HCL 10 MG TABCR (OXYCONTIN) PO SCH (08:56)
[2016-09-20 09:39] VITALS: BP 127/66; PULSE 63; TEMP 36.6; O2SAT 92
--- NOTE | 2016-09-20 13:54 | DISCHARGE SUMMARY ---
DATE OF DISCHARGE: 09/20/2016. DISCHARGE DIAGNOSIS: Degenerative joint disease, right knee. SECONDARY DIAGNOSES: Congestive heart failure, coronary artery disease with myocardial infarction in 2014, asthma, diabetes mellitus. CONSULTS: None. COMPLICATIONS: None. PROCEDURES: Right total knee arthroplasty performed by Dr. Juan Mays on 09/18/2016. BRIEF HISTORY: As dictated in history and physical. HOSPITAL SUMMARY: The patient was admitted on the above date and had the above-noted surgery performed which she tolerated well. On the first postoperative day, she was feeling well and had no complaints. Calves were soft and nontender, neurovascularly intact. Dressings were intact. Toes were mobile. Vital signs were stable. She was afebrile. Hemoglobin was 10.9 and she was started on physical therapy protocol and continued on DVT prophylaxis and pain management. By her second postoperative day, she continued to feel well and had no complaints. Dressings were intact, neurovascularly intact. Toes were mobile. She was progressing well with her physical therapy. Vital signs were stable and it was felt she could be discharged to home. For further review, please see chart. LAB AND X-RAY DATA: As per chart. DISCHARGE INSTRUCTIONS: The patient was discharged to home in satisfactory condition on 09/20/2016. DIET: Diabetic. ACTIVITY: Follow TKA instruction sheets and special care instructions as noted. Follow up with Dr. Juan Mays in 2 weeks. The patient to call for appointment if one has not been made for you. DISCHARGE MEDICATIONS: Celebrex 200 mg p.o. b.i.d., MS Contin 15 mg p.o. q. 12 hours, Zofran 8 mg p.o. q. 8 hours p.r.n. nausea, oxycodone 5-10 mg p.o. q. 4 hours p.r.n., senna 17.2 mg at bedtime and resume home meds as listed and discharge list. Stop taking the 100 mg tablet of Celebrex.
[2016-09-20] MEDS ORDERED: CeleBREX 200 MG CAP PO SCH (21:00)
== END 2016-09-20 13:45 | disposition home health service (06) | DRG 470 ==
LOC: ENRESERVTM → ENRESERVDT → C.ACU 06:26 → C.3E 07:30
PROVIDERS: ADMIT Orthopaedic Surgery; ATTEND Orthopaedic Surgery
PROC: 0SRC0J9 Replacement of Right Knee Joint with Synthetic Substitute, Cemented, Open Approach (ICD-10-PCS; principal; 2016-09-18 08:30)
DX: M17.11 Unilateral primary osteoarthritis, right knee (principal); J45.909 Unspecified asthma, uncomplicated; E11.9 Type 2 diabetes mellitus without complications; I48.91 Unspecified atrial fibrillation; Z95.0 Presence of cardiac pacemaker; I25.2 Old myocardial infarction; I25.10 Atherosclerotic heart disease of native coronary artery without angina pectoris; I50.9 Heart failure, unspecified

== ENCOUNTER 2016-10-05 13:37 | Inpatient (IN) | payer OTHER ==
[~2016-10-05] VITALS: Ht 167.6 cm; Wt 92.8 kg
[~2016-10-05 13:37] MED LIST changes: -ACETAMINOPHEN 500 MG TAB PO SCH; -CEFAZOLIN 2000 MG/60 ML D5W 60 ML IV SCH; -CELE100C PO; +CLB200 PO; -CeleBREX 200 MG CAP PO SCH; -FAMOTIDINE 20 MG TAB PO SCH; -GABAPENTIN 300 MG CAP PO SCH; -LACTATED RINGER'S 1000ML 1,000 ML IV SCH; -METOCLOPRAMIDE HCL 10 MG TAB PO SCH; +ONDA8TAB6 PO; -OXYCODONE HCL 10 MG TABCR (OXYCONTIN) PO SCH; -POLYMYXIN B SULFATE 100,000 UNITS in NSS 100ML IR SCH; -ROPIVACAINE 5MG/ML 30 ML 100 MG, METHYLPREDNISOLONE IV 40 MG, MoRPHine SULFATE 4 MG, Ep... INFIL SCH; -ROPIVACAINE 5MG/ML 30 ML 150 MG, BUPIVACAINE/EPINEPHR 0.5% MPF 30 ML, KETOROLAC TROMETH... INFIL SCH; +RXC5 PO; +SNK PO; -VANCOMYCIN INJ 400 MG in NSS 100ML IR SCH
[2016-10-05] MEDS ORDERED: ONDANSETRON INJ 2 MG/ML 2 ML VIAL IV STA (14:21)
[2016-10-05] MEDS ORDERED: ALBUTEROL 0.083% NEBU SOLN 3 ML VIAL INH STA (14:25)
--- NOTE | 2016-10-05 14:41 | EMERGENCY ROOM VISIT NOTE ---
History First contact with patient: 14:09 Chief Complaint: KNEEPAIN Stated Complaint: KNEE PAIN History of Present Illness The patient is a 66 year old female who presents to the Emergency Room with complaints of right knee pain, redness and swelling. The patient had a right knee replacement performed on September 18 and was seen for a follow up visit on Saturday during which time she states that the knee was starting to become more swollen and red. The nurse that saw the patient told her to continue icing the knee and come to the ED on Saturday if it continued to worsen. She has had worsening swelling to the point that she is unable to bend her right knee more that 5 degrees. The swelling extends from her mid thigh down to her foot. She did have redness around the incision since discharge, but that it has progressively got worse and now surrounds the entire incision. She says the pain is currently past a 10/10. She has also been having a fever over the last few days as high as 101. She has had 1 physical therapy session and says before the swelling worsening she was having improved mobility. Patient also has a history of asthma and is on 1.5-2L of oxygen overnight and takes a neb treatment before bed. Review of Systems See HPI for pertinent positives and negatives. A total of ten systems were reviewed and were otherwise negative. Past Medical/Surgical History Medical Problems: (1) A-fib (2) Asthma (3) CHF (congestive heart failure) (4) Diabetes (5) Heart disease (6) Myocardial infarction (7) Pacemaker Surgical Problems: (1) History of cholecystectomy (2) Post-operative state Social History Smoking Status: Former Smoker Current/Historical Medications Scheduled Apixaban (Eliquis), 5 MG PO BID Aspirin (Aspirin Ec), 81 MG PO QAM Carvedilol (Coreg), 25 MG PO BID Celecoxib (CeleBREX), 200 MG PO BID Digoxin (Digoxin), 1 TAB PO HS Diltiazem Hcl Ext Rel (Tiazac), 120 MG PO HS Fish Oil ([place]-3), 1 CAP PO BID Furosemide (Lasix), 40 MG PO BID Glipizide (Glucotrol), 10 MG PO BID Insulin Glargine (Lantus), 12 UNITS SC HS Linagliptin (Tradjenta), 1 TAB PO QAM Metformin Hcl (Glucophage), 1,000 MG PO BID Morphine Sulfate (Ms Contin), 15 MG PO Q12 Multiple Vitamin (Multi Vitamin Daily), 1 TAB PO QAM Niacin (Niacin), 500 MG PO QAM Senna (Senokot), 17.2 MG PO HS Spironolactone (Aldactone), 25 MG PO QAM Scheduled PRN Acetaminophen (Tylenol), 1,000 MG PO Q8 PRN for Pain or Fever Albuterol Sulfate (Proair Respiclick), 2 PUFF INH Q4 PRN for SOB/Wheezing Albuterol Sulfate (Albuterol Sulfate), 1 VIAL NEB Q4H PRN for SOB/Wheezing Ondansetron Hcl (Zofran), 8 MG PO Q8 PRN for Nausea Oxycodone Ir (Roxicodone Ir), 5-10 MG PO Q4H PRN for Pain Oxygen (Oxygen), 1.5-2 LITERS NA HS/PRN PRN for Shortness of Breath Allergies Coded Allergies: Sotalol (Verified Allergy, Unknown, TINGLING OF FACE, NUMBESS AND TINGLING OF HANDS, HEADACHE, 10/05/16) Physical Exam Vital Signs Date Time Temp Pulse Resp B/P Pulse Ox O2 Delivery O2 Flow Rate FiO2 10/05/16 16:42 79 20 96 10/05/16 16:12 79 25 93 10/05/16 15:48 95 Nasal Cannula 2.0 10/05/16 15:42 79 19 94 10/05/16 15:37 80 17 10/05/16 15:07 76 15 98 10/05/16 14:37 80 26 10/05/16 14:07 85 16 88 10/05/16 14:06 80 10/05/16 13:46 37.4 83 18 116/69 92 Room Air 10/05/16 13:45 116/69 Physical Exam GENERAL: Awake, alert, well-appearing, in mild distress HENT: Normocephalic, atraumatic. EYES: Normal conjunctiva. Sclera non-icteric. NECK: Supple. Trachea Midline. RESPIRATORY: Bilateral wheezing in all lung rasheed, Good inspiratory effort CARDIAC: Regular rate, normal rhythm. Extremities warm and well perfused. Pulses equal. ABDOMEN: Soft, non-distended. No tenderness to palpation. No rebound or guarding. No masses. RECTAL: Deferred. MUSCULOSKELETAL: Chest examination reveals no tenderness. The back is symmetrical on inspection without obvious abnormality. LOWER EXTREMITIES: Right leg swelling, from mid thigh to foot. Very tender to palpation over entire area of swelling and most acutely tender over the incision. Incision is c/d/i. The incision over the right knee is 20 cm in size. There is erythema spanning the entire medial aspect of the wound and on the lateral side of the wound there is erythema over the superior half of the wound. NEURO: Normal sensorium. No sensory or motor deficits noted. SKIN: As noted in lower extremity exam above Medical Decision & Procedures Laboratory Results 10/05/16 14:15 Red Blood Count 3.80, Mean Corpuscular Volume 90.3, Mean Corpuscular Hemoglobin 27.9, Mean Corpuscular Hemoglobin Concent 30.9, Mean Platelet Volume 9.8, Neutrophils (%) (Auto) 84.4, Lymphocytes (%) (Auto) 7.3, Monocytes (%) (Auto) 7.4, Eosinophils (%) (Auto) 0.3, Basophils (%) (Auto) 0.1, Neutrophils # (Auto) 18.39, Lymphocytes # (Auto) 1.59, Monocytes # (Auto) 1.62, Eosinophils # (Auto) 0.07, Basophils # (Auto) 0.03 10/05/16 14:15 Test 10/05/16 14:15 10/05/16 14:25 10/05/16 16:52 White Blood Count 21.80 K/uL (4.8-10.8) Red Blood Count 3.80 M/uL (4.2-5.4) Hemoglobin 10.6 g/dL (12.0-16.0) Hematocrit 34.3 % (37-47) Mean Corpuscular Volume 90.3 fL (80-100) Mean Corpuscular Hemoglobin 27.9 pg (25-34) Mean Corpuscular Hemoglobin Concent 30.9 g/dl (32-36) Platelet Count 364 K/uL (130-400) Mean Platelet Volume 9.8 fL (7.4-10.4) Neutrophils (%) (Auto) 84.4 % Lymphocytes (%) (Auto) 7.3 % Monocytes (%) (Auto) 7.4 % Eosinophils (%) (Auto) 0.3 % Basophils (%) (Auto) 0.1 % Neutrophils # (Auto) 18.39 K/uL (1.4-6.5) Lymphocytes # (Auto) 1.59 K/uL (1.2-3.4) Monocytes # (Auto) 1.62 K/uL (0.11-0.59) Eosinophils # (Auto) 0.07 K/uL (0-0.5) Basophils # (Auto) 0.03 K/uL (0-0.2) RDW Standard Deviation 48.1 fL (36.4-46.3) RDW Coefficient of Variation 14.6 % (11.5-14.5) Immature Granulocyte % (Auto) 0.5 % Immature Granulocyte # (Auto) 0.10 K/uL (0.00-0.02) Dohle Bodies 1+ Erythrocyte Sedimentation Rate 66 mm/hr (0-21) Anion Gap 5.0 mmol/L (3-11) Est Creatinine Clear Calc Drug Dose 53.6 ml/min Estimated GFR () 54.9 Estimated GFR (Non- 47.4 BUN/Creatinine Ratio 37.1 (10-20) Calcium Level 8.9 mg/dl (8.5-10.1) Total Bilirubin 0.7 mg/dl (0.2-1) Direct Bilirubin 0.2 mg/dl (0-0.2) Aspartate Amino Transf (AST/SGOT) 10 U/L (15-37) Alanine Aminotransferase (ALT/SGPT) 18 U/L (12-78) Alkaline Phosphatase 152 U/L (45-117) C-Reactive Protein 36.10 mg/dl (0-0.29) Total Protein 7.3 gm/dl (6.4-8.2) Albumin 2.6 gm/dl (3.4-5.0) Bedside Lactic Acid Venous 1.39 mmol/L (0.90-1.70) Synovial Fluid Source KNEE Synovial Fluid Color BROWN Synovial Fluid Appearance TURBID Synovial Fluid WBC 979251 /uL (0-200) Synovial Fluid RBC 77840 /uL Synovial Fluid Polynuclear WBCs 99.0 % Synovial Fluid Mononuclear WBCs 1.0 % Medications Administered Medications (Trade) Dose Ordered Sig/Julianna Route Start Time Stop Time Status Last Admin Dose Admin Morphine Sulfate (MoRPHine SULFATE INJ) 4 mg Q15M PRN IV 10/05/16 14:30 10/05/16 18:03 DC 10/05/16 16:05 4 MG Ondansetron HCl (Zofran Inj) 4 mg NOW STAT IV 10/05/16 14:21 10/05/16 14:38 DC 10/05/16 14:43 4 MG Albuterol Sulfate (Ventolin 0.083% 2.5MG/3ML Neb) 2.5 mg NOW STAT INH 10/05/16 14:25 10/05/16 14:38 DC 10/05/16 14:41 2.5 MG Piperacillin Sod/ Tazobactam Sod 4.5 gm 4.5 gm NOW STAT IV 10/05/16 15:24 10/05/16 15:26 DC 10/05/16 15:50 4.5 GM Daptomycin 500 mg/ Sodium Chloride 60 ml @ 100 mls/hr NOW STAT IV 10/05/16 15:24 10/05/16 15:59 DC 10/05/16 16:26 100 MLS/HR Clindamycin Phosphate/Dextrose (Cleocin Iv/ Dextrose Add-Casselberry 100ML) 106 ml @ 100 mls/hr ONE ONCE IV 10/05/16 15:30 10/05/16 16:33 DC 10/05/16 16:24 100 MLS/HR Oxycodone HCl (Roxicodone Immediate Rel Tab) `1-2 tabs for pain 1 tab ... Q4HWA PRN PO 10/05/16 17:00 10/19/16 16:59 10/05/16 18:50 10 MG Medical Decision Etiologies such as soft tissue injury, fracture, dislocation, neurovascular compromise, compartment syndrome, as well as others were entertained. Patient had blood cultures, cbc, bmp, and right knee xray performed. Patient started on Morphine 4mg q15m PRN for pain and Zofran 4mg q4h for nausea. Patient also started on Albuterol neb for wheezing 2/2 asthma. WBC of 21.8 and Knee XRay showed joint effusion and small amount of gas within the joint. Patient started on IV Zosyn, Daptomycin, and Clindamycin. Discussed the case with Ian Redmond and relayed patient condition, imaging, and lab results. Relayed that he will be down to see the patient. Impression Primary Impression: Infection of total right knee replacement Additional Impression: Asthma Departure Information Dispostion Admitted as an inpatient Condition FAIR Referrals Elijah Weeks D.O. (PCP) Patient Instructions [facility] Problem Qualifiers Primary Impression: Infection of total right knee replacement Encounter type: initial encounter Qualified Codes: T84.53XA - Infection and inflammatory reaction due to internal right knee prosthesis, initial encounter; Z96.651 - Presence of right artificial knee joint
--- NOTE | 2016-10-05 14:42 | DIAGNOSTIC IMAGING REPORT ---
RIGHT KNEE 1 OR 2 VIEWS ROUTINE CLINICAL HISTORY: Postop right knee pain COMPARISON: 09/18/2016 DISCUSSION: A total right knee arthroplasty is again evident. There is soft tissue swelling present. There is a small joint effusion. There is trace gas within the joint. Soft tissue calcifications located medial to the medial tibial metaphysis remain stable. IMPRESSION: 1. Postsurgical changes of a total right knee arthroplasty 2. No acute fractures 3. Joint effusion. Small amount of gas within the joint. Soft tissue swelling. Given the history of postoperative pain and swelling, a joint infection must be considered.. Electronically signed by: Jaison Gallo M.D. 10/05/2016 2:41 PM Dictated Date/Time: 10/05/2016 2:39 PM
[2016-10-05] MEDS: MoRPHine SULFATE 4 MG/ML 1 ML CARP\\VIAL IV PRN ×3 (14:43→21:57)
[2016-10-05 14:44] LABS: HEMATOCRIT 34.3 % (37-47); MEAN CELL VOLUME 90.3 fL (80-100); MEAN CORPUSCULAR HEMOGLOBIN 27.9 pg (25-34); MEAN CORPUSCULAR HGB CONC 30.9 g/dl (32-36); MEAN PLATELET VOLUME 9.8 fL (7.4-10.4); PLATELET COUNT 364 K/uL (130-400)
[2016-10-05] MEDS ORDERED: MoRPHine SULFATE 4 MG/ML 1 ML CARP\\VIAL IV PRN (15:00)
[2016-10-05 15:05] LABS: BASO % 0.1 %; BASO ABS # 0.03 K/uL (0-0.2); COMPLETE YES; DOHLE BODIES 1+; EOS % 0.3 %; IG% 0.5 %; LYMPH % 7.3 %; LYMPH ABS # 1.59 K/uL (1.2-3.4); MONO % 7.4 %; NEUT % 84.4 %
[2016-10-05 15:08] LABS: BUN/CREATININE RATIO 37.1 (10-20); CALCIUM 8.9 mg/dl (8.5-10.1); CREATININE 1.2 mg/dl (0.60-1.20); POTASSIUM 4.4 mmol/L (3.5-5.1)
[2016-10-05] MEDS ORDERED: OXYC1TAB3 PO (15:13)
[2016-10-05] MEDS ORDERED: MORP-157 PO (15:13)
[2016-10-05] MEDS ORDERED: SENN-61 PO (15:13)
[2016-10-05] MEDS ORDERED: ACET-1256 PO (15:13)
[2016-10-05] MEDS ORDERED: ONDA8TAB6 PO (15:13)
[2016-10-05] MEDS ORDERED: CLB/200 PO (15:13)
[2016-10-05 15:15] LABS: C-REACTIVE PROTEIN 36.1 mg/dl (0-0.29)
[2016-10-05] MEDS ORDERED: ALBU0.633 NEB (15:17)
[2016-10-05] MEDS ORDERED: PIPERACILLIN/TAZOBACTAM 4.5 GM/100ML D5W IV STA (15:24)
[2016-10-05] MEDS ORDERED: DAPTOmycin IV 500 MG in SODIUM CHLORIDE 0.9% 50ML 50 ML IV STA (15:24)
[2016-10-05] MEDS ORDERED: CLINDAMYCIN IV 900 MG in DEXTROSE 5% ADD-VANTAGE 100ML 100 ML IV ONE (15:30)
[2016-10-05] MEDS ORDERED: ALBUTEROL HFA INHALER 8.5 GM INH PRN (17:00)
[2016-10-05] MEDS ORDERED: MoRPHine SULFATE 2 MG/ML CARP IV PRN (17:00)
[2016-10-05] MEDS ORDERED: ALUMINUM/MAGNESIUM SUSP 30 ML UDC PO PRN (17:00)
[2016-10-05] MEDS ORDERED: MAGNESIUM HYDROXIDE SUSP 30 ML UDC PO PRN (17:00)
[2016-10-05] MEDS ORDERED: DiphenhydrAMINE HCL 50 MG/ML VIAL IV PRN (17:00)
--- NOTE | 2016-10-05 17:24 | DIAGNOSTIC IMAGING REPORT ---
RIGHT LOWER EXTREMITY VENOUS DOPPLER HISTORY: right leg swelling Right COMPARISON STUDY: None. FINDINGS: There is normal compressibility, flow, and augmentation within the right lower extremity deep venous system. There is a 3.1 x 2.2 x 0.7 cm slightly complex popliteal cyst. IMPRESSION: No DVT within the right lower extremity Electronically signed by: Elijah Casrto M.D. 10/05/2016 5:23 PM Dictated Date/Time: 10/05/2016 5:22 PM
[2016-10-05] MEDS ORDERED: PHARMACY GLYCEMIC MGMT CONSULT SCH (17:25)
[2016-10-05] MEDS ORDERED: ALBUTEROL 0.083% NEBU SOLN 3 ML VIAL INH PRN (17:30)
[2016-10-05] MEDS ORDERED: GLUCOSE 40% GEL 15 GM TUBE PO PRN (17:45)
[2016-10-05] MEDS ORDERED: GLUCAGON FOR INJ 1 MG VIAL SQ PRN (17:45)
[2016-10-05] MEDS ORDERED: DEXTROSE 50% 50 ML SYR IV PRN (17:45)
[2016-10-05] MEDS ORDERED: GLUCOSE 10 TABS/TUBE PO PRN (17:45)
--- NOTE | 2016-10-05 18:13 | EMERGENCY ROOM VISIT NOTE ---
History Report prepared by Azael: Alex Haney Under the Supervision of: Dr. Ankit Rodriguez M.D. First contact with patient: 13:48 Chief Complaint: KNEEPAIN Stated Complaint: KNEE PAIN History of Present Illness The patient is a 66 year old female who presents to the Emergency Room with complaints of worsening right knee pain, swelling, and erythema starting 2 days ago. The patient had a right knee replacement in August. The patient had a follow up appointment with Dr. Mays's office 3 days ago and was instructed to come to the Emergency Room if her symptoms worsened. She now has worsening pain with movement. She has been applying ice without relief. She currently rates a pain intensity of 9/10. She denies any drainage from the incision site. The patient also reports chills but denies any fevers. Pt denies LOC, headache, diaphoresis, visual changes, neck pain, chest pain, breathing difficulties, nausea, vomiting, abdominal pain, back pain, melena, hematochezia, urinary symptoms, numbness, weakness, rash, or other complaints. The patient is on a blood thinner. Source of History: patient Onset: 2 days ago Position: knee (right) Symptom Intensity: 9/10 Quality: other (swelling and erythema) Timing: worsening Modifying Factors (Relieving): ice (without relief) Associated Symptoms: + chills Review of Systems See HPI for pertinent positives and negatives. A total of ten systems were reviewed and were otherwise negative. Past Medical & Surgical Medical Problems: (1) A-fib (2) Asthma (3) CHF (congestive heart failure) (4) Diabetes (5) Heart disease (6) Myocardial infarction (7) Pacemaker Surgical Problems: (1) History of cholecystectomy (2) Post-operative state Family History Patient reports no known family medical history. Social History Smoking Status: Former Smoker Marital Status: Occupation Status: retired Current/Historical Medications Scheduled Apixaban (Eliquis), 5 MG PO BID Aspirin (Aspirin Ec), 81 MG PO QAM Carvedilol (Coreg), 25 MG PO BID Celecoxib (CeleBREX), 200 MG PO BID Digoxin (Digoxin), 1 TAB PO HS Diltiazem Hcl Ext Rel (Tiazac), 120 MG PO HS Fish Oil (Dickens-3), 1 CAP PO BID Furosemide (Lasix), 40 MG PO BID Glipizide (Glucotrol), 10 MG PO BID Insulin Glargine (Lantus), 12 UNITS SC HS Linagliptin (Tradjenta), 1 TAB PO QAM Metformin Hcl (Glucophage), 1,000 MG PO BID Morphine Sulfate (Ms Contin), 15 MG PO Q12 Multiple Vitamin (Multi Vitamin Daily), 1 TAB PO QAM Niacin (Niacin), 500 MG PO QAM Senna (Senokot), 17.2 MG PO HS Spironolactone (Aldactone), 25 MG PO QAM Scheduled PRN Acetaminophen (Tylenol), 1,000 MG PO Q8 PRN for Pain or Fever Albuterol Sulfate (Proair Respiclick), 2 PUFF INH Q4 PRN for SOB/Wheezing Albuterol Sulfate (Albuterol Sulfate), 1 VIAL NEB Q4H PRN for SOB/Wheezing Ondansetron Hcl (Zofran), 8 MG PO Q8 PRN for Nausea Oxycodone Ir (Roxicodone Ir), 5-10 MG PO Q4H PRN for Pain Oxygen (Oxygen), 1.5-2 LITERS NA HS/PRN PRN for Shortness of Breath Allergies Coded Allergies: Sotalol (Verified Allergy, Unknown, TINGLING OF FACE, NUMBESS AND TINGLING OF HANDS, HEADACHE, 10/05/16) Physical Exam Vital Signs Date Time Temp Pulse Resp B/P Pulse Ox O2 Delivery O2 Flow Rate FiO2 10/05/16 18:04 80 10/05/16 17:46 122/60 10/05/16 16:42 79 20 96 10/05/16 16:12 79 25 93 10/05/16 15:48 95 Nasal Cannula 2.0 10/05/16 15:42 79 19 94 10/05/16 15:37 80 17 10/05/16 15:07 76 15 98 10/05/16 14:37 80 26 10/05/16 14:07 85 16 88 10/05/16 14:06 80 10/05/16 13:46 37.4 83 18 116/69 92 Room Air 10/05/16 13:45 116/69 Physical Exam GENERAL: Awake, alert, uncomfortable-appearing, in no distress HENT: Normocephalic, atraumatic. Oropharynx unremarkable. EYES: Normal conjunctiva. Sclera non-icteric. NECK: Supple. No nuchal rigidity. FROM. No JVD. RESPIRATORY: Clear to auscultation. CARDIAC: Regular rate, normal rhythm. Extremities warm and well perfused. Pulses equal. ABDOMEN: Soft, non-distended. No tenderness to palpation. No rebound or guarding. No masses. RECTAL: Deferred. MUSCULOSKELETAL: Chest examination reveals no tenderness. The back is symmetrical on inspection without obvious abnormality. There is no CVA tenderness to palpation. No joint edema. LOWER EXTREMITIES: Calves are equal size bilaterally and non-tender. No discoloration. Right knee marybel incisional redness and pustule on the lateral proximal incision site. Right lower extremity is larger than the left with erythema, warmth, and tenderness. Range of motion of right lower extremity is limited. NEURO: Normal sensorium. No sensory or motor deficits noted. SKIN: No rash or jaundice noted. Medical Decision & Procedures ER Provider Diagnostic Interpretation: X-ray: Per my interpretation, radiologist review. RIGHT KNEE 1 OR 2 VIEWS ROUTINE CLINICAL HISTORY: Postop right knee pain COMPARISON: 09/18/2016 DISCUSSION: A total right knee arthroplasty is again evident. There is soft tissue swelling present. There is a small joint effusion. There is trace gas within the joint. Soft tissue calcifications located medial to the medial tibial metaphysis remain stable. IMPRESSION: 1. Postsurgical changes of a total right knee arthroplasty 2. No acute fractures 3. Joint effusion. Small amount of gas within the joint. Soft tissue swelling. Given the history of postoperative pain and swelling, a joint infection must be considered.. Electronically signed by: Jaison Gallo M.D. 10/05/2016 2:41 PM Dictated Date/Time: 10/05/2016 2:39 PM Laboratory Results 10/05/16 14:15 Red Blood Count 3.80, Mean Corpuscular Volume 90.3, Mean Corpuscular Hemoglobin 27.9, Mean Corpuscular Hemoglobin Concent 30.9, Mean Platelet Volume 9.8, Neutrophils (%) (Auto) 84.4, Lymphocytes (%) (Auto) 7.3, Monocytes (%) (Auto) 7.4, Eosinophils (%) (Auto) 0.3, Basophils (%) (Auto) 0.1, Neutrophils # (Auto) 18.39, Lymphocytes # (Auto) 1.59, Monocytes # (Auto) 1.62, Eosinophils # (Auto) 0.07, Basophils # (Auto) 0.03 10/05/16 14:15 Test 10/05/16 14:15 10/05/16 14:25 10/05/16 16:52 White Blood Count 21.80 K/uL (4.8-10.8) Red Blood Count 3.80 M/uL (4.2-5.4) Hemoglobin 10.6 g/dL (12.0-16.0) Hematocrit 34.3 % (37-47) Mean Corpuscular Volume 90.3 fL (80-100) Mean Corpuscular Hemoglobin 27.9 pg (25-34) Mean Corpuscular Hemoglobin Concent 30.9 g/dl (32-36) Platelet Count 364 K/uL (130-400) Mean Platelet Volume 9.8 fL (7.4-10.4) Neutrophils (%) (Auto) 84.4 % Lymphocytes (%) (Auto) 7.3 % Monocytes (%) (Auto) 7.4 % Eosinophils (%) (Auto) 0.3 % Basophils (%) (Auto) 0.1 % Neutrophils # (Auto) 18.39 K/uL (1.4-6.5) Lymphocytes # (Auto) 1.59 K/uL (1.2-3.4) Monocytes # (Auto) 1.62 K/uL (0.11-0.59) Eosinophils # (Auto) 0.07 K/uL (0-0.5) Basophils # (Auto) 0.03 K/uL (0-0.2) RDW Standard Deviation 48.1 fL (36.4-46.3) RDW Coefficient of Variation 14.6 % (11.5-14.5) Immature Granulocyte % (Auto) 0.5 % Immature Granulocyte # (Auto) 0.10 K/uL (0.00-0.02) Dohle Bodies 1+ Erythrocyte Sedimentation Rate 66 mm/hr (0-21) Anion Gap 5.0 mmol/L (3-11) Est Creatinine Clear Calc Drug Dose 53.6 ml/min Estimated GFR () 54.9 Estimated GFR (Non- 47.4 BUN/Creatinine Ratio 37.1 (10-20) Calcium Level 8.9 mg/dl (8.5-10.1) Total Bilirubin 0.7 mg/dl (0.2-1) Direct Bilirubin 0.2 mg/dl (0-0.2) Aspartate Amino Transf (AST/SGOT) 10 U/L (15-37) Alanine Aminotransferase (ALT/SGPT) 18 U/L (12-78) Alkaline Phosphatase 152 U/L (45-117) C-Reactive Protein 36.10 mg/dl (0-0.29) Total Protein 7.3 gm/dl (6.4-8.2) Albumin 2.6 gm/dl (3.4-5.0) Bedside Lactic Acid Venous 1.39 mmol/L (0.90-1.70) Laboratory results reviewed by me Medications Administered Medications (Trade) Dose Ordered Sig/Julianna Route Start Time Stop Time Status Last Admin Dose Admin Morphine Sulfate (MoRPHine SULFATE INJ) 4 mg Q15M PRN IV 10/05/16 14:30 10/05/16 18:03 DC 10/05/16 16:05 4 MG Ondansetron HCl (Zofran Inj) 4 mg NOW STAT IV 10/05/16 14:21 10/05/16 14:38 DC 10/05/16 14:43 4 MG Albuterol Sulfate (Ventolin 0.083% 2.5MG/3ML Neb) 2.5 mg NOW STAT INH 10/05/16 14:25 10/05/16 14:38 DC 10/05/16 14:41 2.5 MG Piperacillin Sod/ Tazobactam Sod 4.5 gm 4.5 gm NOW STAT IV 10/05/16 15:24 10/05/16 15:26 DC 10/05/16 15:50 4.5 GM Daptomycin 500 mg/ Sodium Chloride 60 ml @ 100 mls/hr NOW STAT IV 10/05/16 15:24 10/05/16 15:59 DC 10/05/16 16:26 100 MLS/HR Clindamycin Phosphate/Dextrose (Cleocin Iv/ Dextrose Add-[place] 100ML) 106 ml @ 100 mls/hr ONE ONCE IV 10/05/16 15:30 10/05/16 16:33 DC 10/05/16 16:24 100 MLS/HR ED Course 1348: The patient was evaluated in room B06. A complete history and physical exam was performed. 1421: Zofran Inj 4 mg IV 1425: Albuterol Sulfate 2.5 mg INH 1430: Morphine Sulfate 4 mg IV 1454: Area of redness was marked. Skin was prepped over the pustule. An 18- gauge needle was used, pustule was unroofed, and specimen was collected. 1524: Daptomycin 500 mg/Sodium Chloride 60 ml @ 100 mls/hr IV, Zosyn IV 4.5 gm IV 1530: Clindamycin Phosphate 900 mg/Dextrose 106 ml @ 100 mls/hr IV 1535: I discussed the patient's case with Ian Alvarez PA-C with [facility]. He will evaluate the patient in the Emergency Room. 1611: Upon reexamination, the patient was resting comfortably. I discussed the test results and treatment plan with the patient. The patient will be evaluated for further management. I discussed the patient's case again with Ian Alvarez. Medical Decision Triage Nursing notes reviewed. The patient's presentation and history were concerning for leg swelling and recent surgery. Etiologies such as DVT, joint effusion, infection, trauma, muscular, lymphedema , idiopathic, CHF, as well as others were entertained. The patient was evaluated. Her leg was swollen. Given the recent surgery there was concerns for infection as well as DVT. Ultrasound imaging was unremarkable. Joint was red, swollen and hot. There was a pustule that was cultured. The patient had blood work done. This was concerning for a significant leukocytosis, elevated ESR, and marked elevation of CRP. The patient had an x-ray which showed gas within the joint and soft tissue swelling. Orthopedics was consulted. The patient was given IV Zosyn, daptomycin, and clindamycin based upon the diagnostic results. Ian Alvarez PA-C of [facility] did present to the emergency department and evaluated the patient. He agreed with the assessment of infection and the patient was admitted. The patient was seen and examined with Dr. Linda, resident physician. We discussed the case and treatments ordered, reviewed the results, and determine the disposition. Please refer to the resident's note for additional details. I have been directly involved with the management and disposition as well as independently evaluated the patient as documented in this note. The chart was completed utilizing [employer] voice recognition software. Grammatical errors, random word insertions, pronoun errors, and incomplete sentences are an occasional consequence of this system due to software limitations, ambient noise, and hardware issues. Any formal questions or concerns about the content, text, or information contained within the body of this dictation should be directly addressed to the physician for clarification. Consults Time Called: 1500 Consulting Physician: Ian Alvarez PA-C with [facility] Returned Call: [phone] I discussed the patient's case with Ian Alvarez PA-C with [facility]. He will evaluate the patient in the Emergency Room. Impression Primary Impression: Septic joint Scribe Attestation The scribe's documentation has been prepared under my direction and personally reviewed by me in its entirety. I confirm that the note above accurately reflects all work, treatment, procedures, and medical decision making performed by me. Departure Information Dispostion Being Evaluated By Surgeon Elijah Friend D.O. (PCP) Patient Instructions My [facility]
[2016-10-05 18:33] VITALS: BP 130/78; PULSE 82; TEMP 37.7; O2SAT 93
[2016-10-05 18:49] LABS: SALINE CHECK YES
[2016-10-05 18:50] LABS: SYNOVIAL FLUID APPEARANCE TURBID; SYNOVIAL FLUID COLOR BROWN
[2016-10-05] MEDS: OXYCODONE HCL IR 5 MG TAB (IMMEDIATE RELEASE) PO PRN ×2 (18:50→23:35)
[2016-10-05] MEDS: FUROSEMIDE 40 MG TAB PO SCH (18:50)
[2016-10-05] MEDS ORDERED: MoRPHine SULFATE 10 MG/ML CARP/VIAL IV PRN (19:00)
[2016-10-05 19:09] VITALS: BP 130/78; PULSE 82; TEMP 37.7; O2SAT 93; Ht 167.6 cm; Wt 92.8 kg
[2016-10-05] MEDS ORDERED: VANCOMYCIN CONSULT ACTIVE PRN (19:15)
[2016-10-05 19:20] LABS: URINE APPEARANCE CLEAR (CLEAR); URINE BILIRUBIN NEG (NEG); URINE COLOR YELLOW; URINE EPITHELIAL CELL AUTO 20-30 /lpf (0-5); URINE NITRITE NEG (NEG); URINE SPECIFIC GRAVITY 1.025 (1.000-1.030); UROBILINOGEN NEG (NEG)
[2016-10-05 19:30] LABS: MANUAL MICROSCOPIC REQUIRED? NO; REVIEW REQ? YES
[2016-10-05] MEDS ORDERED: VANCOMYCIN INJ 2,200 MG in SODIUM CHLORIDE 0.9% 500ML 500 ML IV SCH (19:30)
--- NOTE | 2016-10-05 19:37 | HISTORY & PHYSICAL EXAMINATION ---
DATE OF ADMISSION: 10/05/2016 REASON FOR ADMISSION: Right total knee arthroplasty infection. HISTORY OF PRESENT ILLNESS: The patient is a 66-year-old white female known to our practice, who is status post right TKA performed by Dr. Nando Mays on 09/18/2016. The patient was doing fine afterwards and states that when she was in the office this past week on Saturday and saw the staff, at that time she had some mild redness around some of the incision. She was told to continue her physical therapy and continue to follow the redness and if it worsened that she was to call the office or come into the office and/or be seen in the Emergency Room. The patient states that by Saturday night she had few small shooting pains in the knee but was otherwise feeling okay and had a decent day. By , she began developing some chills and fevers off and on and some nausea and vomiting. She began having increased pain in her right knee and noticed that the redness was starting to increase. By this morning, she ended up being unable to bear weight and was unable to do much in the way range of motion with her right knee because of severe pain. She was directed to the Emergency Room where she was seen by the staff and we were asked to see her for her right knee pain. Currently, patient is lying in bed in the Emergency Room and is awake and alert and oriented to person, place and time. She complains of right knee pain with motion only and states that since receiving some pain medication from the staff here in the Emergency Room, she is feeling better as far as the pain goes; however, trying to move the knee or walk on it is extremely painful. PAST MEDICAL HISTORY: CHF, heart disease with [place] in 2013, asthma, diabetes mellitus with use of insulin. PAST SURGICAL HISTORY: Cholecystectomy, tonsillectomy, insertion of pacemaker, hernia repair. FAMILY HISTORY: Noncontributory. SOCIAL HISTORY: Denies use of alcohol or tobacco. 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 MEDICATIONS: Recently taking Tylenol 1000 mg p.o. q. 8 hours, albuterol 2 puffs inhaled q. 4 hours p.r.n., albuterol nebulizer 0.63 mg in 3 mL 1 vial q. 4 hours p.r.n. shortness of breath, apixaban 5 mg p.o. b.i.d., aspirin 81 mg p.o. q.a.m., carvedilol 25 mg p.o. b.i.d., Celebrex 200 mg p.o. b.i.d., digoxin 1 tab p.o. at bedtime, diltiazem 120 mg p.o. at bedtime, fish oil 1 cap p.o. b.i.d., furosemide 40 mg p.o. b.i.d., glipizide 10 mg p.o. b.i.d., Lantus 12 units subQ at bedtime, Linagliptin 5 mg p.o. q.a.m., metformin 1000 mg p.o. b.i.d., MS Contin 15 mg p.o. q. 12 hours, multivitamin 1 tab p.o. q.a.m., niacin 500 mg p.o. q.a.m., Zofran 8 mg p.o. q. 8 hours, OxyIR 5-10 mg p.o. q. 4 hours p.r.n., oxygen 1.5 to 2 liters nasal cannula at bedtime p.r.n., senna 17.2 mg p.o. at bedtime, spironolactone 25 mg p.o. q.a.m. ALLERGIES: SOTALOL. REVIEW OF SYSTEMS: No increased exacerbation of shortness of breath. No increased cough or sputum production. Positive for fevers and chills over the last several days. She denies any recent chest pain. No chest pressure or irregular heartbeat. Again no increased shortness of breath on exertion or at rest. No hemoptysis. No unusual dyspnea that has exacerbated she has been having some nausea and vomiting over the last day or so with some slight tenderness in her abdomen, she states that it is not on anyone point. No diarrhea. No hematemesis, melena, hematochezia. No hematuria, pyuria, burning on urination. No seizures, no dizziness or lightheadedness. PHYSICAL EXAMINATION: VITAL SIGNS: On admission to the ER, temperature 37.4, pulse 83, respirations 18, BP 116/69, pulse ox 92 on room air. GENERAL: The patient is a well-developed, well-nourished, obese white female who is alert and oriented x3 and in moderate distress secondary to right knee pain with motion. She is pleasant and cooperative. SKIN: Warm and dry. Turgor is good. HEENT: Head is normocephalic and atraumatic. There is no scleral icterus or injection. Nasal airway is patent. Oral mucosa is pink and moist. NECK: Supple without adenopathy or bruits. HEART: Regular rate and rhythm. LUNGS: The patient has some upper respiratory wheezes, right greater than left. ABDOMEN: Soft, round and mildly tender on palpation. She has no guarding, no rebound tenderness and no point tenderness at this point in time. Bowel sounds are present and active x4. GENITALIA AND RECTAL: Not performed at this time. EXTREMITIES: On examination of the right lower extremity, her incision from her TKA is healing. She had an area that was described to me by Dr. Rodriguez that was blistered which he deroofed and took a culture from the fluid. She has no overt drainage from the knee incision at this time. She has moderate erythema, mostly over the lateral aspect of the incision, from the proximal almost to the distal. Some of this erythema does travel medially, but is on the more proximal portion of the incision. On palpation of this area she obviously has some swelling, just subcutaneously, and it is tender on palpation mainly over the areas of erythema. Whey trying to take her through range of motion, she is very hesitant and does let me do it passively; however, her range of motion is minimal at this time. She is more comfortable in about 30 degrees of flexion. When I do some gentle flexion, extension and range of motion; she is very painful. Just trying to straight the leg out to get her in full extension, it is very painful for her. Mild axial loading of the joint itself causes moderate pain. Her calves are soft and nontender bilaterally. The left lower extremity is benign. Distal pulses of the lower extremities are essentially 2/4 bilaterally, and sensation is intact. She has good range of motion of her right ankle and toes and she has good range of motion of her right hip, taking it through some gentle passive range of motion. Upper extremities are essentially benign and have good range of motion, good strength and pulses are equal bilaterally and good sensation. She denies any neck pain on palpation at this time. Denies any thoracic or lumbar pain. NEUROLOGICAL: No gross motor deficits are seen at this point in time. Sensation is intact. ASSESSMENT: Infected right total knee arthroplasty. PLAN: At the bedside with a 10 mL syringe and a 20-gauge spinal needle, an area was cleansed on the anterior medial aspect of the right knee joint line with 2 alcohol swabs and 3 Betadine swabs and let that dry. At that point in time, the needle was inserted successfully into the joint and approximately 3 mL of creamy red purulent material was withdrawn from the knee. At that point in time, the needle was withdrawn and pressure was held over the insertion site and then a Band-Aid was placed. The patient tolerated the procedure well. With the findings of the aspirate, these will be sent for Gram stain, anaerobic and aerobic cultures. Cell count will also be sent for as well. We will plan on admitting her and starting her on IV vancomycin. We will consult infectious disease and medicine service as well and likely with her being on apixaban, we will wait at least 48 hours for likely irrigation and debridement with polyethylene bearing change.
[2016-10-05] MEDS: OXYCODONE HCL 10 MG TABCR (OXYCONTIN) PO SCH (20:05)
[2016-10-05] MEDS: D5W AND 1/2NSS 1,000 ML IV SCH (20:05)
[2016-10-05] MEDS: DIGOXIN 0.125 MG TAB PO SCH (20:06)
[2016-10-05] MEDS ORDERED: DILTIAZEM HCL 120 MG EXT REL CAP PO SCH (21:00)
--- NOTE | 2016-10-05 21:46 | Pharmacy Progress Note ---
Glycemic Control Intl Consult Date of Service October 05, 2016. Scope Glycemic Pharmacist consulted by LILI Washburn on 10/05/16 for glycemic control and to write orders per [facility] inpatient glycemic control protocol Objective Weight (Kilograms): 92.800 Accuchecks BSG (last 24hrs): Test 10/05/16 14:15 10/05/16 20:53 Random Glucose 157 mg/dl (70-99) Bedside Glucose 184 mg/dl (70-90) Laboratory Data (last 24hrs) Test 10/05/16 14:15 Anion Gap 5.0 mmol/L BUN/Creatinine Ratio 37.1 Blood Urea Nitrogen 44 mg/dl Creatinine 1.20 mg/dl Potassium Level 4.4 mmol/L Sodium Level 136 mmol/L White Blood Count 21.80 K/uL Red Blood Count 3.80 M/uL Hemoglobin 10.6 g/dL Hematocrit 34.3 % Mean Corpuscular Volume 90.3 fL Mean Corpuscular Hemoglobin 27.9 pg Mean Corpuscular Hemoglobin Concent 30.9 g/dl Platelet Count 364 K/uL Mean Platelet Volume 9.8 fL Neutrophils (%) (Auto) 84.4 % Lymphocytes (%) (Auto) 7.3 % Monocytes (%) (Auto) 7.4 % Eosinophils (%) (Auto) 0.3 % Basophils (%) (Auto) 0.1 % Neutrophils # (Auto) 18.39 K/uL Lymphocytes # (Auto) 1.59 K/uL Monocytes # (Auto) 1.62 K/uL Eosinophils # (Auto) 0.07 K/uL Basophils # (Auto) 0.03 K/uL HbA1c 08/23/16 Hgb A1c 7.4% Recent Pertinent Medications Outpatient Anti-diabetic Regimen: * Lantus 12 units hs, Glipizide 10 mg bid, Linagliptin 5 mg daily, Metformin 1000 mg bid * A1c = updated A1c pending 10/06/16 The patient is currently receiving: * Basal insulin: Lantus 12 units every hs * Correctional Insulin: none Oral Agents: Glipizide 10 mg bid, Linagliptin 5 mg daily Risk Factors for Insulin Resistance: * Steroids: no * Infection: infected R knee, had daptomyin x1, Zosyn x1, clindamycin x1, now on vancomycin * Pressors: no * IVF: D5 1/2NSS @ 75 ml/hr * Recent Surgery: no (had R total knee replacement on 09/18/16) * Diet: regular * Mechanical Ventilation: no Assessment & Plan ASSESSMENT: * 66 yo type 2 diabetic with wound/knee infection with possibility of long-term antibiotics. Pt is maintained on oral antidiabetic agents and Lantus as an outpatient * Oral agents are not recommended for inpatient use d/t drug interactions, changing PO intake, and difficulty titrating for acute hyper/hypoglycemia. ADA recommends re-initiating outpatient oral agents 1-2 days prior to discharge if/ when appropriate if they were held on admission. * Will hold oral agents for admission and utilize SQ basal bolus insulin regimen which is the recommended regimen for inpatient glycemic control. * Will initiate weight based insulin dosing and titrate based on BSG trends. ADA & AACE recommend a goal blood sugar range 140-180 mg/dl for the majority of critically ill & non-critically ill patients. However, more stringent targets may be selected in individual cases. Will utilize more stringent goal of 100-140 mg/dl based on patient age & comorbidities. Additionally, tighter glycemic control is warranted to facilitate wound/infection healing. Will reassess in am. PLAN FOR INPATIENT GLYCEMIC CONTROL: * Holding outpatient oral diabetes medications * Basal insulin with LANTUS 12 units SQ hs * Correctional Insulin with NOVOLOG per scale ACHS or Q6hrs while NPO * Goal Range: Low 100 mg/dL - High 140 mg/dL * Correction Factor: 25 mg/dL/unit * Nutritional / Prandial insulin per carb ratio of 1 unit per 8 grams CHO consumed Will change diet to type 2 diabetic. * Please note that the plan above was derived based on current level of insulin resistance and hospital stress. These recommendations are appropriate for inpatient admission only. Plan of care upon discharge will need to be reassessed to avoid potential outpatient hypo/hyperglycemia. Thank you.
[2016-10-05] MEDS: CARVEDILOL 25 MG TAB PO SCH (21:56)
[2016-10-05] MEDS: DOCUSATE SODIUM 100 MG CAP PO SCH (21:56)
[2016-10-05] MEDS: INSULIN ASPART 100 UNITS/ML 3 ML PEN SC SCH (22:01)
[2016-10-05] MEDS: INSULIN GLARGINE SOLOSTAR 100 UNITS/ML 3 ML PEN SC SCH (22:02)
[2016-10-05 22:36] VITALS: BP 113/71; PULSE 86; TEMP 37.9; O2SAT 95
--- NOTE | 2016-10-05 22:53 | Pharmacy Progress Note ---
Pharmacy Antibiotic Consult Date of Service: October 05, 2016. Pharmacy Dosing Scope Pharmacy is consulted to initiate vancomycin IV dosing therapy, order appropriate labs and adjust drug dose/frequency. Subjective The patient is a 66 year old female admitted on October 05, 2016 at 17:12. S/P Right total knee replacement 09/18/16. History of diabetes, heart disease. Objective Height (Feet): 5 Height (Inches): 6.00 Weight (Kilograms): 92.800 Lab Results (24hrs): Test 10/05/16 14:15 10/05/16 14:25 10/05/16 16:52 10/05/16 18:40 White Blood Count 21.80 K/uL (4.8-10.8) Red Blood Count 3.80 M/uL (4.2-5.4) Hemoglobin 10.6 g/dL (12.0-16.0) Hematocrit 34.3 % (37-47) Mean Corpuscular Volume 90.3 fL (80-100) Mean Corpuscular Hemoglobin 27.9 pg (25-34) Mean Corpuscular Hemoglobin Concent 30.9 g/dl (32-36) Platelet Count 364 K/uL (130-400) Mean Platelet Volume 9.8 fL (7.4-10.4) Neutrophils (%) (Auto) 84.4 % Lymphocytes (%) (Auto) 7.3 % Monocytes (%) (Auto) 7.4 % Eosinophils (%) (Auto) 0.3 % Basophils (%) (Auto) 0.1 % Neutrophils # (Auto) 18.39 K/uL (1.4-6.5) Lymphocytes # (Auto) 1.59 K/uL (1.2-3.4) Monocytes # (Auto) 1.62 K/uL (0.11-0.59) Eosinophils # (Auto) 0.07 K/uL (0-0.5) Basophils # (Auto) 0.03 K/uL (0-0.2) RDW Standard Deviation 48.1 fL (36.4-46.3) RDW Coefficient of Variation 14.6 % (11.5-14.5) Immature Granulocyte % (Auto) 0.5 % Immature Granulocyte # (Auto) 0.10 K/uL (0.00-0.02) Dohle Bodies 1+ Erythrocyte Sedimentation Rate 66 mm/hr (0-21) Sodium Level 136 mmol/L (136-145) Potassium Level 4.4 mmol/L (3.5-5.1) Chloride Level 101 mmol/L (98-107) Carbon Dioxide Level 30 mmol/L (21-32) Anion Gap 5.0 mmol/L (3-11) Blood Urea Nitrogen 44 mg/dl (7-18) Creatinine 1.20 mg/dl (0.60-1.20) Est Creatinine Clear Calc Drug Dose 53.6 ml/min Estimated GFR () 54.9 Estimated GFR (Non- 47.4 BUN/Creatinine Ratio 37.1 (10-20) Random Glucose 157 mg/dl (70-99) Calcium Level 8.9 mg/dl (8.5-10.1) Total Bilirubin 0.7 mg/dl (0.2-1) Direct Bilirubin 0.2 mg/dl (0-0.2) Aspartate Amino Transf (AST/SGOT) 10 U/L (15-37) Alanine Aminotransferase (ALT/SGPT) 18 U/L (12-78) Alkaline Phosphatase 152 U/L (45-117) C-Reactive Protein 36.10 mg/dl (0-0.29) Total Protein 7.3 gm/dl (6.4-8.2) Albumin 2.6 gm/dl (3.4-5.0) Bedside Lactic Acid Venous 1.39 mmol/L (0.90-1.70) Synovial Fluid Source KNEE Synovial Fluid Color BROWN Synovial Fluid Appearance TURBID Synovial Fluid WBC 240698 /uL (0-200) Synovial Fluid RBC 95640 /uL Synovial Fluid Polynuclear WBCs 99.0 % Synovial Fluid Mononuclear WBCs 1.0 % Urine Color YELLOW Urine Appearance CLEAR (CLEAR) Urine pH 5.0 (4.5-7.5) Urine Specific [place] 1.025 (1.000-1.030) Urine Protein 1+ (NEG) Urine Glucose (UA) NEG (NEG) Urine Ketones NEG (NEG) Urine Occult Blood NEG (NEG) Urine Nitrite NEG (NEG) Urine Bilirubin NEG (NEG) Urine Urobilinogen NEG (NEG) Urine Leukocyte Esterase NEG (NEG) Urine WBC (Auto) 1-5 /hpf (0-5) Urine RBC (Auto) 0-4 /hpf (0-4) Urine Hyaline Casts (Auto) 1-5 /lpf (0-5) Urine Epithelial Cells (Auto) 20-30 /lpf (0-5) Urine Bacteria (Auto) NEG (NEG) Urine Yeast (Auto) (NONE PRSENT) Test 10/05/16 20:53 Bedside Glucose 184 mg/dl (70-90) Micro Results: 10/05 blood x2 pending 10/05 wound R knee pending 10/05 joint fluid R knee pending Recent Pertinent Medications Item Value Date Time Vancomycin HCl 544 ml @ 200 mls/hr 10/05/16 1930 2200 mg/Sodium TODAY@1930/IV Chloride Clindamycin 106 ml @ 100 mls/hr 10/05/16 1530 Phosphate 900 mg/ ONE ONCE/IV 10/05/16 1624 Dextrose Piperacillin Sod/ 4.5 gm 10/05/16 1524 Tazobactam Sod NOW STAT/IV 10/05/16 1550 (Zosyn Iv) Daptomycin 500 mg/ 60 ml @ 100 mls/hr 10/05/16 1524 Sodium Chloride NOW STAT/IV 10/05/16 1626 Assessment & Plan Loading dose: vancomycin 2200 mg IV X 1 dose (~24 mg/kg) then: vancomycin 1300 mg IV every 16 hours. Goal peak level estimate: between 25-40 mcg/mL. Goal trough level estimate: between 15-20 mcg/mL. Trough has been ordered for: 10/07/16 before 2200 dose. Pharmacy will continue to follow and will adjust dose/frequency as necessary. Thank you
[2016-10-05] MEDS: ACETAMINOPHEN 500 MG TAB PO PRN (23:35)
[2016-10-06] MEDS ORDERED: INSULIN ASPART 100 UNITS/ML 3 ML PEN SC SCH (02:00)
[2016-10-06] MEDS ORDERED: NURSING VERBAL MED ORDER ONE ×5 (02:30→22:30)
[2016-10-06] MEDS ORDERED: BACLOFEN 10 MG TAB PO PRN (02:45)
[2016-10-06] MEDS ORDERED: BACLOFEN 10 MG TAB PO ONE (02:45)
[2016-10-06] MEDS: D5W AND 1/2NSS 1,000 ML IV SCH (06:07)
[2016-10-06] MEDS: OXYCODONE HCL IR 5 MG TAB (IMMEDIATE RELEASE) PO PRN (06:21)
[2016-10-06 06:43] LABS: HEMATOCRIT 30.1 % (37-47); MEAN CELL VOLUME 90.9 fL (80-100); MEAN CORPUSCULAR HEMOGLOBIN 28.4 pg (25-34); MEAN CORPUSCULAR HGB CONC 31.2 g/dl (32-36); PLATELET COUNT 324 K/uL (130-400); RED BLOOD COUNT 3.31 M/uL (4.2-5.4); WHITE BLOOD COUNT 17.28 K/uL (4.8-10.8)
[2016-10-06 07:14] LABS: BUN/CREATININE RATIO 34.9 (10-20); CALCIUM 8.5 mg/dl (8.5-10.1); CREATININE 0.95 mg/dl (0.60-1.20); POTASSIUM 4.3 mmol/L (3.5-5.1)
[2016-10-06 07:30] VITALS: BP 97/61; PULSE 63; TEMP 36.8; O2SAT 95
[2016-10-06 07:44] LABS: ESTIMATED AVERAGE GLUCOSE 151 mg/dl; HA1C FLAG Normal (Normal)
[2016-10-06] MEDS: MoRPHine SULFATE 2 MG/ML CARP IV PRN (08:26)
[2016-10-06] MEDS: DOCUSATE SODIUM 100 MG CAP PO SCH ×2 (08:34→20:56)
[2016-10-06 08:37] VITALS: BP 122/73; PULSE 76
[2016-10-06] MEDS: CARVEDILOL 25 MG TAB PO SCH ×2 (08:38→20:56)
[2016-10-06] MEDS: FUROSEMIDE 40 MG TAB PO SCH ×2 (08:38→17:00)
[2016-10-06] MEDS: SENNA 8.6 MG TAB PO SCH (08:39)
[2016-10-06] MEDS: PANTOprazole SOD 40 MG TAB PO SCH (08:39)
[2016-10-06] MEDS: MULTIVITAMIN TAB PO SCH (08:39)
--- NOTE | 2016-10-06 08:39 | Pharmacy Progress Note ---
Pharmacy Abx Dose Short Note Date of Service October 06, 2016. Assessment & Plan Assessment 66 year old female receiving VANCOMYCIN IV for treatment of infected R TKA, also with GPC in 1 of 2 BLCX's (unknown if contaminant at this point) Day # 2 of antimicrobial therapy - duration of treatment not yet determined. Renal fxn has improved over the last 24 hrs (SCr 1.2 --> 0.95, back to baseline) , U.O. 500cc thus far today, VSS. Given improved renal fxn and likely greater clearance of vancomycin, will change regimen to prevent possibility of trough < 15 in this patient who remains febrile, has 1 of 2 BLCX's growing GPC and infection of prosthetic joint. Plan Vancomycin * Change to 1300 mg IV every 14 hours * Goal trough level for bacteremia, joint infection : 15 to 20 mcg/mL * Trough or random level ordered for: 10/08/16 * New p'kinetic estimates: Enrico 0.06hr-1; Vd 0.7L/kg; half-life ~11-12 hours Pharmacy will continue to follow and will adjust dose/frequency as necessary. Thank you.
[2016-10-06] MEDS: NIACIN 500 MG TAB IMMEDIATE RELEASE PO SCH (08:40)
[2016-10-06] MEDS: OXYCODONE HCL 10 MG TABCR (OXYCONTIN) PO SCH ×2 (08:40→21:00)
[2016-10-06] MEDS ORDERED: LINAGLIPTIN PO SCH (09:00)
[2016-10-06] MEDS ORDERED: SPIRONOLACTONE 25 MG TAB PO SCH (09:00)
[2016-10-06] MEDS: INSULIN ASPART 100 UNITS/ML 3 ML PEN SC SCH ×4 (09:25→20:56)
--- NOTE | 2016-10-06 09:29 | Medical Consult ---
Consultation Date of Consultation: October 06, 2016. Attending Physician: Omer Fine M.D. History of Present Illness This is a 66-year-old female with PMHx of CHF, history of ME 2013, at s/p pacemaker insertion, DM type II, asthma, obesity with BMI= 33.0 presenting to the ER with erythematous swollen left knee. The patient had a right TKA done by Dr. Mays. He was doing well until approximately one day ago when she noticed worsening pain in the right knee along with erythema and swelling, fevers and chills. Synovial fluid was drawn by orthopedics which was clearly infected, Gram stain and cultures are in process.. Patient has been admitted and started on daptomycin and vancomycin for antibiotic coverage. The patient is extremely tired when I going to see her today. She was administered pain medication with morphine 2 mg IV and oxycodone 5 mg at approximately 8:30 AM. Her nursing the patient did not sleep well overnight. Patient cannot provide me with an accurate review of systems due to fatigue. She reports her pain is adequately controlled at this time, and that the ice pack is helping. Past Medical/Surgical History Medical Problems: (1) Asthma Status: Chronic (2) Infection of total right knee replacement Status: Acute (3) Knee pain Status: Acute (4) Septic joint Status: Acute Family History Patient reports no known family medical history. Social History Smoking Status: Former Smoker Smokeless Tobacco Use: No Alcohol Use: none Drug Use: none Marital Status: Occupation Status: retired Allergies Coded Allergies: Sotalol (Verified Allergy, Unknown, TINGLING OF FACE, NUMBESS AND TINGLING OF HANDS, HEADACHE, 10/05/16) Current Inpatient Medications Current Inpatient Medications Medications (Trade) Dose Ordered Sig/Julianna Route Start Time Stop Time Status Last Admin Dose Admin Diphenhydramine HCl (Benadryl Inj) 25 mg Q8 PRN IV 10/05/16 17:00 11/04/16 16:59 Al Hydroxide/Mg Hydroxide (Maalox Susp) 30 ml Q6H PRN PO 10/05/16 17:00 11/04/16 16:59 Docusate Sodium (coLACE CAP) 100 mg BID PO 10/05/16 21:00 11/04/16 20:59 10/06/16 08:34 100 MG Pantoprazole Sodium (Protonix Tab) 40 mg QAM PO 10/06/16 09:00 11/05/16 08:59 10/06/16 08:39 40 MG Magnesium Hydroxide (Milk Of Magnesia Susp) 30 ml Q6H PRN PO 10/05/16 17:00 11/04/16 16:59 Oxycodone HCl (Roxicodone Immediate Rel Tab) `1-2 tabs for pain 1 tab ... Q4HWA PRN PO 10/05/16 17:00 10/19/16 16:59 10/06/16 06:21 10 MG Oxycodone HCl (Oxycontin Tab) 10 mg Q12H PO 10/05/16 17:00 10/19/16 16:59 10/06/16 08:40 10 MG Senna (Senokot Tab) 17.2 mg QAM PO 10/06/16 09:00 11/05/16 08:59 10/06/16 08:39 17.2 MG Acetaminophen (Tylenol Tab) 1,000 mg Q8 PRN PO 10/05/16 17:00 11/04/16 16:59 10/05/16 23:35 1,000 MG Carvedilol (Coreg Tab) 25 mg BID PO 10/05/16 21:00 11/04/16 20:59 10/06/16 08:38 25 MG Digoxin (Lanoxin Tab) 0.125 mg DAILY@1600 PO 10/05/16 16:00 11/04/16 15:59 10/05/16 20:06 0.125 MG Diltiazem HCl (TIAzac CAP) 120 mg HS PO 10/05/16 21:00 11/04/16 20:59 10/05/16 21:56 120 MG Furosemide (Lasix Tab) 40 mg BID17 PO 10/05/16 17:00 11/04/16 16:59 10/06/16 08:38 40 MG Insulin Glargine (Lantus Solostar Pen) 12 unit HS SC 10/05/16 21:00 11/04/16 20:59 10/05/16 22:02 12 UNIT Multivitamins (Multivitamin Tab) 1 tab QAM PO 10/06/16 09:00 11/05/16 08:59 10/06/16 08:39 1 TAB Niacin (Niacin Tab) 500 mg QAM PO 10/06/16 09:00 11/05/16 08:59 10/06/16 08:40 500 MG Spironolactone (Aldactone Tab) 25 mg QAM PO 10/06/16 09:00 11/05/16 08:59 10/06/16 08:40 25 MG Albuterol Sulfate (Ventolin 0.083% 2.5MG/3ML Neb) 2.5 mg Q4H PRN INH 10/05/16 17:30 11/04/16 17:29 Albuterol (Proair Hfa) 2 puffs Q4 PRN INH 10/05/16 17:00 11/04/16 16:59 Miscellaneous Information (Consult Glycemic Management Pharmacy) 1 ea UD N/A 10/05/16 17:25 11/04/16 17:24 Insulin Aspart (novoLOG ASPART) SLIDING SCALE ACHS SC 10/05/16 21:00 11/04/16 20:59 10/05/16 22:01 2 UNITS Glucose (Glucose 40% Gel) 15-30 GRAMS 15 GRAMS... UD PRN PO 10/05/16 17:45 11/04/16 17:44 Glucose (Glucose Chew Tab) 4-8 Tablets 4 Tabl... UD PRN PO 10/05/16 17:45 11/04/16 17:44 Dextrose (Dextrose 50% 50ML Syringe) 25-50ML OF 50% DW IV FOR... UD PRN IV 10/05/16 17:45 11/04/16 17:44 Glucagon (Glucagon Inj) 1 mg UD PRN SQ 10/05/16 17:45 11/04/16 17:44 Morphine Sulfate (MoRPHine SULFATE INJ) 2 mg Q4HWA PRN IV 10/05/16 19:00 10/19/16 18:59 10/06/16 08:26 2 MG Morphine Sulfate (MoRPHine SULFATE INJ) 4 mg Q4HWA PRN IV 10/05/16 19:00 10/19/16 18:59 10/05/16 21:57 4 MG Morphine Sulfate (MoRPHine SULFATE INJ) 6 mg Q4HWA PRN IV 10/05/16 19:00 10/19/16 18:59 Vancomycin HCl 1 ea 1 ea UD PRN N/A 10/05/16 19:15 11/04/16 19:14 Vancomycin HCl/ Sodium Chloride (Vancomycin Inj/ Nss 250ml) 276 ml @ 125 mls/hr Q14H IV 10/06/16 14:00 11/17/16 13:59 Review of Systems Constitutional: No fever, sweats or chills Eyes: No diplopia, no worsening or blurred vision ENT: normal hearing, no trouble swallowing Respiratory: No cough, sputum, dyspnea at rest or on exertion Cardiovascular: No chest pain, tightness or palpitations Abdomen: No pain, nausea, vomiting, diarrhea or constipation Musculoskeletal: + R knee joint pain but improved, No calf pain Neurologic: No weakness, numbness/tingling, or balance problems Psychiatric: No anxiety or depression Skin: No rash or itch Physical Exam Date Time Temp Pulse Resp B/P Pulse Ox O2 Delivery O2 Flow Rate FiO2 10/06/16 08:37 76 122/73 10/06/16 07:30 36.8 63 18 97/61 95 Room Air 10/05/16 23:30 Nasal Cannula 2.0 10/05/16 22:36 37.9 86 18 113/71 95 Nasal Cannula 2.0 10/05/16 20:06 81 10/05/16 19:09 37.7 82 20 130/78 93 Nasal Cannula 2.0 10/05/16 18:33 37.7 82 20 130/78 93 Nasal Cannula 2.0 10/05/16 18:06 80 14 94 10/05/16 18:04 80 10/05/16 18:01 106/52 10/05/16 17:51 82 16 96 10/05/16 17:46 122/60 10/05/16 16:42 79 20 96 10/05/16 16:12 79 25 93 10/05/16 15:48 95 Nasal Cannula 2.0 10/05/16 15:42 79 19 94 10/05/16 15:37 80 17 10/05/16 15:07 76 15 98 10/05/16 14:37 80 26 10/05/16 14:07 85 16 88 10/05/16 14:06 80 10/05/16 13:46 37.4 83 18 116/69 92 Room Air 10/05/16 13:45 116/69 General: awake, alert, no apparent distress, obese, lethargic Head: Normocephalic, atraumatic ENT: PERRL, EOMI, no pharyngeal exudate, mucous membranes moist Chest: Clear to auscultation, on room air, no adventitious breath sounds Cardiac: Regular rate and rhythm, no murmur, no JVD, normal peripheral pulses, good capillary refill Abdominal: NABS x 4 quadrants, soft, nontender to palpation, no rebound, guarding or tenderness Extremities: + R knee incision site is opening in multiple spots, + erythema, edema and warmth with touch, erythema has not extended past the border drawn on her leg. +2 pitting edema of bilateral lower extremities. Psych: Normal mood and affect Laboratory Results Last 24 Hours Test 10/05/16 14:15 10/05/16 14:25 10/05/16 16:52 10/05/16 18:40 White Blood Count 21.80 K/uL Red Blood Count 3.80 M/uL Hemoglobin 10.6 g/dL Hematocrit 34.3 % Mean Corpuscular Volume 90.3 fL Mean Corpuscular Hemoglobin 27.9 pg Mean Corpuscular Hemoglobin Concent 30.9 g/dl Platelet Count 364 K/uL Mean Platelet Volume 9.8 fL Neutrophils (%) (Auto) 84.4 % Lymphocytes (%) (Auto) 7.3 % Monocytes (%) (Auto) 7.4 % Eosinophils (%) (Auto) 0.3 % Basophils (%) (Auto) 0.1 % Neutrophils # (Auto) 18.39 K/uL Lymphocytes # (Auto) 1.59 K/uL Monocytes # (Auto) 1.62 K/uL Eosinophils # (Auto) 0.07 K/uL Basophils # (Auto) 0.03 K/uL RDW Standard Deviation 48.1 fL RDW Coefficient of Variation 14.6 % Immature Granulocyte % (Auto) 0.5 % Immature Granulocyte # (Auto) 0.10 K/uL Dohle Bodies 1+ Erythrocyte Sedimentation Rate 66 mm/hr Sodium Level 136 mmol/L Potassium Level 4.4 mmol/L Chloride Level 101 mmol/L Carbon Dioxide Level 30 mmol/L Anion Gap 5.0 mmol/L Blood Urea Nitrogen 44 mg/dl Creatinine 1.20 mg/dl Est Creatinine Clear Calc Drug Dose 53.6 ml/min Estimated GFR () 54.9 Estimated GFR (Non- 47.4 BUN/Creatinine Ratio 37.1 Random Glucose 157 mg/dl Calcium Level 8.9 mg/dl Total Bilirubin 0.7 mg/dl Direct Bilirubin 0.2 mg/dl Aspartate Amino Transf (AST/SGOT) 10 U/L Alanine Aminotransferase (ALT/SGPT) 18 U/L Alkaline Phosphatase 152 U/L C-Reactive Protein 36.10 mg/dl Total Protein 7.3 gm/dl Albumin 2.6 gm/dl Bedside Lactic Acid Venous 1.39 mmol/L Synovial Fluid Source KNEE Synovial Fluid Color BROWN Synovial Fluid Appearance TURBID Synovial Fluid WBC 461117 /uL Synovial Fluid RBC 53062 /uL Synovial Fluid Polynuclear WBCs 99.0 % Synovial Fluid Mononuclear WBCs 1.0 % Urine Color YELLOW Urine Appearance CLEAR Urine pH 5.0 Urine Specific [place] 1.025 Urine Protein 1+ Urine Glucose (UA) NEG Urine Ketones NEG Urine Occult Blood NEG Urine Nitrite NEG Urine Bilirubin NEG Urine Urobilinogen NEG Urine Leukocyte Esterase NEG Urine WBC (Auto) 1-5 /hpf Urine RBC (Auto) 0-4 /hpf Urine Hyaline Casts (Auto) 1-5 /lpf Urine Epithelial Cells (Auto) 20-30 /lpf Urine Bacteria (Auto) NEG Urine Yeast (Auto) Test 10/05/16 20:53 10/06/16 02:03 10/06/16 06:07 10/06/16 08:24 Bedside Glucose 184 mg/dl 163 mg/dl 176 mg/dl White Blood Count 17.28 K/uL Red Blood Count 3.31 M/uL Hemoglobin 9.4 g/dL Hematocrit 30.1 % Mean Corpuscular Volume 90.9 fL Mean Corpuscular Hemoglobin 28.4 pg Mean Corpuscular Hemoglobin Concent 31.2 g/dl RDW Standard Deviation 48.4 fL RDW Coefficient of Variation 14.7 % Platelet Count 324 K/uL Mean Platelet Volume 10.0 fL Sodium Level 137 mmol/L Potassium Level 4.3 mmol/L Chloride Level 103 mmol/L Carbon Dioxide Level 29 mmol/L Anion Gap 5.0 mmol/L Blood Urea Nitrogen 33 mg/dl Creatinine 0.95 mg/dl Est Creatinine Clear Calc Drug Dose 67.7 ml/min Estimated GFR () 72.8 Estimated GFR (Non- 62.9 BUN/Creatinine Ratio 34.9 Random Glucose 115 mg/dl Estimated Average Glucose 151 mg/dl Hemoglobin A1c 6.9 % Calcium Level 8.5 mg/dl Magnesium Level 2.0 mg/dl Assessment & Plan 66 yo F with PMHX of CHF, CAD s/p ME in 2013, pacemaker insertion, DM II, Asthma , and s/p R TKA on 09/18 now admitted with septic joint. Septic Joint - S/p R TKA on 09/[address] Mays admitted for Sepsis with infected right knee joint. - Needle aspiration was obtained from R knee: synovial fluid clearly infected, fluid sent for gram stain and culture - await results - Blood culture preliminary reports are Gram + cocci - Pt started on vancomycin and daptomycin - continue for now.l - WBC trended down from 21K to 17K - Pt had been on apixiban for anticoagulation so Ortho plans to wait at least 48 hours for surgical intervention with washout. - Analgesia - caution with oversedation, currently i think the patient is unable to stay awake during my interview due to lack of sleep as the last time she was administered pain medication was at 8:30 am. Continue oxycodone prn, tylenol, and try to avoid morphine unless for breakthrough/severe pain. DM II - Hgb A1C=6.9 - Continue ISS with accuchecks. CHF CAD s/p ME in 2013, s/p pacemaker placement - Cont [employer] meds including digoxin 0.125 daily, diltiazem 120 mg at bedtime, Lasix 40 mg by mouth twice a day, spironolactone 25 mg by mouth daily Asthma -Pro Air, nebulizer treatments QID and Q2H prn for shortness of breath DVT ppx: teds, scds, holding eliquis in anticipation of surgical procedure CODE STATUS: FULL CODE Disposition: From home Attending Consult Note & Attestation: Pt seen/examined, chart reviewed, care plan d/w MOJGAN Correa. I agree w/ the lee components of her documentation. 66yo female with h/o CAD, AICD/defibrillator, chronic systolic CHF with EF 40% based on records), T2DM, asthma - presenting with infected right TKR. Synovial culture with staph aureus, and all blood cx's + for GPC. After Ms. Correa's visit earlier today I was called about 5pm that the patient was sleepy and confused. Upon my arrival the patient was awake but was confused - she thought she was in [facility]. She reported right knee pain but otherwise stated "I just don't feel good." PMH, PSH, allergies, meds, sochx, famhx, ros - reviewed vitals - febrile, BP wnl gen - looks sick, confused, dehydrated mouth - MM dry neck - no JVD heart - RRR, s1, s2, 2/6 systolic murmur chest - AICD device left upper chest lungs - CTA b/l; no rales abd - soft, NT ext - right knee with effusion, erythematous, warm to touch; midline incision present; ankles - trace edema on left, 1+ on right; pulses 2+ b/l labs - WBC 17 Cr 0.9 all blood cx's + for GPC A/P: 1. septic right knee in the setting of recent TKR - 2nd to staph aureus; defer management to ID & orthopedics; likely OR in the AM for washout; continue IV abx. 2. sepsis with bacteremia - will need repeat blood cx's to ensure sterility as well as echocardiogram to r/o SBE. Cont abx. 3. metabolic encephalopathy - likely all due to #1/#2 but check VBG, TSH, and digoxin level to r/o other etiologies. 4. chronic systolic CHF - records reviewed - last known EF that I could find about 40%; repeat echo ordered. Pt appears volume contracted from sepsis - hold diuretics (Cautiously) for now. 5. HTN - cont BB, but hold CCB. 6. h/o abnormal TSH - recheck tonight. 7. place montanez catheter. After seeing the patient I spoke with Dr. Fine from orthopedics. Given her ongoing fever, mental status changes, sepsis, etc I recommended Tx to telemetry, montanez placement, etc. He plans to make her NPO after MN tonight with OR in the AM for washout. Plan of care d/w on-call city carrier for our hospitalist group. Repeat labs in AM. time 60 minutes Mars Ace MD
--- NOTE | 2016-10-06 11:29 | Progress Note ---
Orthopedic SOAP Note Subjective Date of Service: October 06, 2016. Additional Notes: pain improved with IV pain meds Problem List Medical Problems: (1) Asthma Status: Chronic (2) Infection of total right knee replacement Status: Acute (3) Knee pain Status: Acute (4) Septic joint Status: Acute Objective N/V intact erythema and swelling with some improvement ,no drainage. erythema around central incision toward medial skin flap Date Time Temp Pulse Resp B/P Pulse Ox O2 Delivery O2 Flow Rate FiO2 10/06/16 08:37 76 122/73 10/06/16 07:30 Room Air 10/06/16 07:30 36.8 63 18 97/61 95 Room Air 10/05/16 23:30 Nasal Cannula 2.0 10/05/16 22:36 37.9 86 18 113/71 95 Nasal Cannula 2.0 10/05/16 20:06 81 10/05/16 19:09 37.7 82 20 130/78 93 Nasal Cannula 2.0 10/05/16 18:33 37.7 82 20 130/78 93 Nasal Cannula 2.0 10/05/16 18:06 80 14 94 10/05/16 18:04 80 10/05/16 18:01 106/52 10/05/16 17:51 82 16 96 10/05/16 17:46 122/60 10/05/16 16:42 79 20 96 10/05/16 16:12 79 25 93 10/05/16 15:48 95 Nasal Cannula 2.0 10/05/16 15:42 79 19 94 10/05/16 15:37 80 17 10/05/16 15:07 76 15 98 10/05/16 14:37 80 26 10/05/16 14:07 85 16 88 10/05/16 14:06 80 10/05/16 13:46 37.4 83 18 116/69 92 Room Air 10/05/16 13:45 116/69 Laboratory Results 24 Hours: Test 10/05/16 14:15 10/06/16 06:07 White Blood Count 21.80 K/uL Red Blood Count 3.80 M/uL Hemoglobin 10.6 g/dL 9.4 g/dL Hematocrit 34.3 % 30.1 % Mean Corpuscular Volume 90.3 fL Mean Corpuscular Hemoglobin 27.9 pg Mean Corpuscular Hemoglobin Concent 30.9 g/dl Platelet Count 364 K/uL Mean Platelet Volume 9.8 fL Neutrophils (%) (Auto) 84.4 % Lymphocytes (%) (Auto) 7.3 % Monocytes (%) (Auto) 7.4 % Eosinophils (%) (Auto) 0.3 % Basophils (%) (Auto) 0.1 % Neutrophils # (Auto) 18.39 K/uL Lymphocytes # (Auto) 1.59 K/uL Monocytes # (Auto) 1.62 K/uL Eosinophils # (Auto) 0.07 K/uL Basophils # (Auto) 0.03 K/uL Assessment acute postop infection,pus aspirated and felt to be deep infection per Ian ULRICH who performed aspiration,some improvement of wbc ct and afebrile now,gram pos cocci likely staph infection on vancomycin. patient on eliquis which is d/c. Plan incision and drainage ,likely poly exchange and placement drains but on hold for 48 hours off eliquis.continue iv abx pending surgery and sensitivities
[2016-10-06] MEDS: VANCOMYCIN INJ 1,300 MG in SODIUM CHLORIDE 0.9% 250ML 250 ML IV SCH (13:32)
[2016-10-06] MEDS ORDERED: VANCOMYCIN INJ 1,300 MG in SODIUM CHLORIDE 0.9% 250ML 250 ML IV SCH (14:00)
--- NOTE | 2016-10-06 14:01 | Pharmacy Progress Note ---
Glycemic Control: Progress Nt Date of Service October 06, 2016. Scope Glycemic Pharmacist consulted by Ian Alvarez on 10/05/16 for glycemic control and to write orders per [facility] inpatient glycemic control protocol. Objective Accuchecks BSG (last 24hrs): Test 10/05/16 14:15 10/05/16 20:53 10/06/16 02:03 10/06/16 06:07 Random Glucose 157 mg/dl (70-99) 115 mg/dl (70-99) Bedside Glucose 184 mg/dl (70-90) 163 mg/dl (70-90) Test 10/06/16 08:24 Bedside Glucose 176 mg/dl (70-90) Laboratory Data (last 24hrs) Test 10/05/16 14:15 10/06/16 06:07 Anion Gap 5.0 mmol/L 5.0 mmol/L BUN/Creatinine Ratio 37.1 34.9 Blood Urea Nitrogen 44 mg/dl 33 mg/dl Creatinine 1.20 mg/dl 0.95 mg/dl Potassium Level 4.4 mmol/L 4.3 mmol/L Sodium Level 136 mmol/L 137 mmol/L White Blood Count 21.80 K/uL 17.28 K/uL Red Blood Count 3.80 M/uL Hemoglobin 10.6 g/dL Hematocrit 34.3 % Mean Corpuscular Volume 90.3 fL Mean Corpuscular Hemoglobin 27.9 pg Mean Corpuscular Hemoglobin Concent 30.9 g/dl Platelet Count 364 K/uL Mean Platelet Volume 9.8 fL Neutrophils (%) (Auto) 84.4 % Lymphocytes (%) (Auto) 7.3 % Monocytes (%) (Auto) 7.4 % Eosinophils (%) (Auto) 0.3 % Basophils (%) (Auto) 0.1 % Neutrophils # (Auto) 18.39 K/uL Lymphocytes # (Auto) 1.59 K/uL Monocytes # (Auto) 1.62 K/uL Eosinophils # (Auto) 0.07 K/uL Basophils # (Auto) 0.03 K/uL Hemoglobin A1c 6.9 % HbA1c: Test 10/06/16 06:07 Hemoglobin A1c 6.9 % (4.5-5.6) H Recent Pertinent Medications Outpatient Anti-diabetic Regimen: * Lantus 12 units SQ q HS * Glipizide 10 mg PO BID * Linagliptin 5 mg PO daily * Metformin 1000 mg PO BID * A1c = 6.9 % 09/2016 The patient is currently receiving: * Basal insulin: * Lantus 12 units SQ every 24 hours, in the evening * Bolus Insulin: * NovoLog SQ AC/HS/02 - Goal Range: Low 100 mg/dL - High 140 mg/dL - Correction Factor: 25 mg/dL/unit - Carb ratio of 1 unit per 8 grams CHO consumed * Oral Agents: * held on admission Risk Factors for Insulin Resistance: * Infection: vancomycin IV * IVF: D5W 1/2NS @ 75mL/hr - D/C at 08:00 * Diet: T2DM Assessment & Plan ASSESSMENT: Initial: * 66 y/o T2D female who is admitted s/p TKA in August and now with wound infection * BSG on admission WNL * home basal insulin continued, Bolus insulin with NOvoLog started * home oral medications held * ADA & AACE recommend a goal blood sugar range 140-180 mg/dl for the majority of critically ill & non-critically ill patients. However, more stringent targets may be selected in individual cases. Will utilize more stringent goal of 100-140 mg/dl based on patient age & comorbidities. Additionally, tighter glycemic control is warranted to facilitate wound/infection healing. Today: * BSGs responded nicely to 12 units of basal insulin - was considering increasing dose, however IV dextrose infusion stopped * continue same and re-evaluate tomorrow * NovoLog parameters could likely be more aggressive, specifically in a patient with an infection * tighten correction factor and carb ratio * A1c resulted * appropriate outpatient control * add to discharge instructions PLAN FOR INPATIENT GLYCEMIC CONTROL: changes italicized. * Basal insulin: * Lantus 12 units SQ q HS * Bolus insulin: * NovoLog SQ AC and HS - CF: 20mg/dL/unit - CR: 1 unit per 7g of CHO consumed - Goal: 100-140mg/dL * Oral medications: * continue to hold until closer to discharge * A1c: added to discharge instructions RECOMMENDATIONS FOR DISCHARGE: * Likely, Ms Pierce can continue her home regimen at discharge as her A1c reflects good outpatient glycemic control. * Please note that the plan above was derived based on current level of insulin resistance and hospital stress. These recommendations are appropriate for inpatient admission only. Plan of care upon discharge will need to be reassessed to avoid potential outpatient hypo/hyperglycemia. Thank you.
[2016-10-06 15:20] VITALS: BP 142/76; PULSE 83; TEMP 37.7; O2SAT 92
[2016-10-06 16:30] VITALS: O2SAT 92
--- NOTE | 2016-10-06 17:23 | Medical Consult ---
Consultation Date of Consultation: October 06, 2016. Attending Physician: Omer Fine M.D. Reason for Consultation: Infected right TKA History of Present Illness 66-year-old female status post right knee replacement at the end of August, initially doing well, but then presented with several days of increasing redness and swelling along with fever and chills with episodes of nausea and vomiting. She had aspiration of her knee which showed purulent fluid and cultures now growing Staph aureus. Patient admitted the hospital and started on IV vancomycin. Awaiting surgical intervention for probable debridement and [place] [id number], sed rate elevated at 66. Past Medical/Surgical History Medical Problems: (1) Asthma Status: Chronic (2) Infection of total right knee replacement Status: Acute (3) Knee pain Status: Acute (4) Septic joint Status: Acute Medical Problems: (1) A-fib (2) Asthma (3) CHF (congestive heart failure) (4) Diabetes (5) Heart disease (6) Myocardial infarction (7) Pacemaker Surgical Problems: (1) History of cholecystectomy (2) Post-operative state Family History Patient reports no known family medical history. Social History Smoking Status: Former Smoker Smokeless Tobacco Use: No Alcohol Use: none Drug Use: none Marital Status: Occupation Status: retired Allergies Coded Allergies: Sotalol (Verified Allergy, Unknown, TINGLING OF FACE, NUMBESS AND TINGLING OF HANDS, HEADACHE, 10/05/16) Current Inpatient Medications Current Inpatient Medications Medications (Trade) Dose Ordered Sig/Julianna Route Start Time Stop Time Status Last Admin Dose Admin Diphenhydramine HCl (Benadryl Inj) 25 mg Q8 PRN IV 10/05/16 17:00 11/04/16 16:59 Al Hydroxide/Mg Hydroxide (Maalox Susp) 30 ml Q6H PRN PO 10/05/16 17:00 11/04/16 16:59 Docusate Sodium (coLACE CAP) 100 mg BID PO 10/05/16 21:00 11/04/16 20:59 10/06/16 08:34 100 MG Pantoprazole Sodium (Protonix Tab) 40 mg QAM PO 10/06/16 09:00 11/05/16 08:59 10/06/16 08:39 40 MG Magnesium Hydroxide (Milk Of Magnesia Susp) 30 ml Q6H PRN PO 10/05/16 17:00 11/04/16 16:59 Oxycodone HCl (Roxicodone Immediate Rel Tab) `1-2 tabs for pain 1 tab ... Q4HWA PRN PO 10/05/16 17:00 10/19/16 16:59 10/06/16 06:21 10 MG Oxycodone HCl (Oxycontin Tab) 10 mg Q12H PO 10/05/16 17:00 10/19/16 16:59 10/06/16 08:40 10 MG Senna (Senokot Tab) 17.2 mg QAM PO 10/06/16 09:00 11/05/16 08:59 10/06/16 08:39 17.2 MG Acetaminophen (Tylenol Tab) 1,000 mg Q8 PRN PO 10/05/16 17:00 11/04/16 16:59 10/05/16 23:35 1,000 MG Carvedilol (Coreg Tab) 25 mg BID PO 10/05/16 21:00 11/04/16 20:59 10/06/16 08:38 25 MG Digoxin (Lanoxin Tab) 0.125 mg DAILY@1600 PO 10/05/16 16:00 11/04/16 15:59 10/05/16 20:06 0.125 MG Diltiazem HCl (TIAzac CAP) 120 mg HS PO 10/05/16 21:00 11/04/16 20:59 10/05/16 21:56 120 MG Furosemide (Lasix Tab) 40 mg BID17 PO 10/05/16 17:00 11/04/16 16:59 10/06/16 08:38 40 MG Insulin Glargine (Lantus Solostar Pen) 12 unit HS SC 10/05/16 21:00 11/04/16 20:59 10/05/16 22:02 12 UNIT Multivitamins (Multivitamin Tab) 1 tab QAM PO 10/06/16 09:00 11/05/16 08:59 10/06/16 08:39 1 TAB Niacin (Niacin Tab) 500 mg QAM PO 10/06/16 09:00 11/05/16 08:59 10/06/16 08:40 500 MG Spironolactone (Aldactone Tab) 25 mg QAM PO 10/06/16 09:00 11/05/16 08:59 10/06/16 08:40 25 MG Albuterol Sulfate (Ventolin 0.083% 2.5MG/3ML Neb) 2.5 mg Q4H PRN INH 10/05/16 17:30 11/04/16 17:29 Albuterol (Proair Hfa) 2 puffs Q4 PRN INH 10/05/16 17:00 11/04/16 16:59 Miscellaneous Information (Consult Glycemic Management Pharmacy) 1 ea UD N/A 10/05/16 17:25 11/04/16 17:24 Insulin Aspart (novoLOG ASPART) SLIDING SCALE ACHS SC 10/05/16 21:00 11/04/16 20:59 10/06/16 13:31 4 UNITS Glucose (Glucose 40% Gel) 15-30 GRAMS 15 GRAMS... UD PRN PO 10/05/16 17:45 11/04/16 17:44 Glucose (Glucose Chew Tab) 4-8 Tablets 4 Tabl... UD PRN PO 10/05/16 17:45 11/04/16 17:44 Dextrose (Dextrose 50% 50ML Syringe) 25-50ML OF 50% DW IV FOR... UD PRN IV 10/05/16 17:45 11/04/16 17:44 Glucagon (Glucagon Inj) 1 mg UD PRN SQ 10/05/16 17:45 11/04/16 17:44 Morphine Sulfate (MoRPHine SULFATE INJ) 2 mg Q4HWA PRN IV 10/05/16 19:00 10/19/16 18:59 10/06/16 08:26 2 MG Morphine Sulfate (MoRPHine SULFATE INJ) 4 mg Q4HWA PRN IV 10/05/16 19:00 10/19/16 18:59 10/05/16 21:57 4 MG Morphine Sulfate (MoRPHine SULFATE INJ) 6 mg Q4HWA PRN IV 10/05/16 19:00 10/19/16 18:59 Vancomycin HCl 1 ea 1 ea UD PRN N/A 10/05/16 19:15 11/04/16 19:14 Vancomycin HCl/ Sodium Chloride (Vancomycin Inj/ Nss 250ml) 276 ml @ 125 mls/hr Q14H IV 10/06/16 14:00 11/17/16 13:59 10/06/16 13:32 125 MLS/HR Physical Exam Date Time Temp Pulse Resp B/P Pulse Ox O2 Delivery O2 Flow Rate FiO2 10/06/16 15:20 37.7 83 18 142/76 92 Room Air 10/06/16 08:37 76 122/73 10/06/16 07:30 Room Air 10/06/16 07:30 36.8 63 18 97/61 95 Room Air 10/05/16 23:30 Nasal Cannula 2.0 10/05/16 22:36 37.9 86 18 113/71 95 Nasal Cannula 2.0 10/05/16 20:06 81 10/05/16 19:09 37.7 82 20 130/78 93 Nasal Cannula 2.0 10/05/16 18:33 37.7 82 20 130/78 93 Nasal Cannula 2.0 10/05/16 18:06 80 14 94 10/05/16 18:04 80 10/05/16 18:01 106/52 10/05/16 17:51 82 16 96 10/05/16 17:46 122/60 General Appearance: WD/WN, no apparent distress Head: normocephalic, atraumatic Eyes: normal inspection, EOMI, sclerae normal ENT: normal ENT inspection, hearing grossly normal, pharynx normal Neck: supple, no adenopathy, thyroid normal, trachea midline Respiratory/Chest: chest non-tender, lungs clear, normal breath sounds, no respiratory distress Cardiovascular: regular rate, rhythm, no gallop, no murmur Abdomen/GI: normal bowel sounds, non tender, soft, no organomegaly Back: normal inspection, no CVA tenderness Extremities/Musculoskelatal: no calf tenderness, normal capillary refill Neurologic/Psych: alert, normal mood/affect, oriented x 3 Skin: normal color, no rash Lymphatic: no adenopathy, + pertinent finding ( right knee swelling and erythema) Laboratory Results RUN DATE: 10/06/16 [facility] PAGE 1 RUN TIME: 0837 Specimen Inquiry PATIENT: MATTY HARVEY LOC: [facility] U # : [id number] AGE/SX: 66/F ROOM: [facility] REG : 10/05/[address]: Omer Fine M.D. : 1950 BED: 1 DIS : STATUS: ADM IN TLOC: SPEC #: [id number] GISEL: 10/05/16 STATUS: RES REQ #: [id number] RECD: 10/05/[address]: Ankit Rodriguez MD SOURCE: BLOOD ENTR: 10/05/16-[address] [facility] [address]: Elijah Weeks D.O. SPDESC: No Doctor, Assigned ORDERED: BLOOD CULTURE Procedure Result Verified Site BLD CULT Preliminary 10/06/16-0837 Organism 1 GRAM POSITIVE COCCI SENS SENSITIVITIES DEPENDENT ON FURTHER IDENTIFICATION Phoned Positive Blood Culture Gram Stain Report to ROSHAN ANTONY on 10/06/16 At 0835 By GERMÁN. Results were verbalized back to GERMÁN. Last 24 Hours Test 10/05/16 18:40 10/05/16 20:53 10/06/16 02:03 10/06/16 06:07 Urine Color YELLOW Urine Appearance CLEAR Urine pH 5.0 Urine Specific [place] 1.025 Urine Protein 1+ Urine Glucose (UA) NEG Urine Ketones NEG Urine Occult Blood NEG Urine Nitrite NEG Urine Bilirubin NEG Urine Urobilinogen NEG Urine Leukocyte Esterase NEG Urine WBC (Auto) 1-5 /hpf Urine RBC (Auto) 0-4 /hpf Urine Hyaline Casts (Auto) 1-5 /lpf Urine Epithelial Cells (Auto) 20-30 /lpf Urine Bacteria (Auto) NEG Urine Yeast (Auto) Bedside Glucose 184 mg/dl 163 mg/dl White Blood Count 17.28 K/uL Red Blood Count 3.31 M/uL Hemoglobin 9.4 g/dL Hematocrit 30.1 % Mean Corpuscular Volume 90.9 fL Mean Corpuscular Hemoglobin 28.4 pg Mean Corpuscular Hemoglobin Concent 31.2 g/dl RDW Standard Deviation 48.4 fL RDW Coefficient of Variation 14.7 % Platelet Count 324 K/uL Mean Platelet Volume 10.0 fL Sodium Level 137 mmol/L Potassium Level 4.3 mmol/L Chloride Level 103 mmol/L Carbon Dioxide Level 29 mmol/L Anion Gap 5.0 mmol/L Blood Urea Nitrogen 33 mg/dl Creatinine 0.95 mg/dl Est Creatinine Clear Calc Drug Dose 67.7 ml/min Estimated GFR () 72.8 Estimated GFR (Non- 62.9 BUN/Creatinine Ratio 34.9 Random Glucose 115 mg/dl Estimated Average Glucose 151 mg/dl Hemoglobin A1c 6.9 % Calcium Level 8.5 mg/dl Magnesium Level 2.0 mg/dl Test 10/06/16 08:24 10/06/16 12:13 Bedside Glucose 176 mg/dl 185 mg/dl RIGHT LOWER EXTREMITY VENOUS DOPPLER HISTORY: right leg swelling Right COMPARISON STUDY: None. FINDINGS: There is normal compressibility, flow, and augmentation within the right lower extremity deep venous system. There is a 3.1 x 2.2 x 0.7 cm slightly complex popliteal cyst. IMPRESSION: No DVT within the right lower extremity Electronically signed by: Elijah Castro M.D. 10/05/2016 5:23 PM Dictated Date/Time: 10/05/2016 5:22 PM The status of this report is Signed. Draft = Not yet reviewed or approved by Radiologist. Signed = Reviewed and approved Assessment & Plan early infection of right TKA with Staph aureus with bacteremia, sensitivities are pending. Patient should be continued on IV vancomycin, and I have added rifampin pending final culture results and surgical intervention. Patient will likely require poly exchange with 6-8 weeks of IV antibiotics. Will discuss and follow.
[2016-10-06] MEDS: ACETAMINOPHEN 500 MG TAB PO PRN (18:21)
[2016-10-06 18:54] LABS: VEN BLD GAS O2 SATURATION 80.2 %; VEN BLOOD GAS BASE EXCESS 2.8 mmol/L
[2016-10-06 19:12] VITALS: TEMP 37.5
[2016-10-06 20:30] VITALS: BP_SYST 102; BP_SYST 118; BP_DIAS 62; BP_DIAS 65; PULSE 77; PULSE 78; TEMP 37.3; O2SAT 93; O2SAT 95
[2016-10-06] MEDS: RIFAMPIN 300 MG CAP PO SCH (20:55)
[2016-10-06] MEDS: DIGOXIN 0.125 MG TAB PO SCH (20:55)
[2016-10-06] MEDS: INSULIN GLARGINE SOLOSTAR 100 UNITS/ML 3 ML PEN SC SCH (22:20)
[2016-10-06] MEDS: NSS + 20MEQ KCL 1000ML 1,000 ML IV SCH (22:58)
[2016-10-07] VITALS (7 sets, daily range): BP systolic 110–145; BP diastolic 51–79; PULSE 74–99; TEMP 36.6–37.9; O2SAT 93–98
[2016-10-07] MEDS: VANCOMYCIN INJ 1,300 MG in SODIUM CHLORIDE 0.9% 250ML 250 ML IV SCH ×2 (04:13→17:03)
[2016-10-07 06:17] LABS: BASO % 0.1 %; BASO ABS # 0.02 K/uL (0-0.2); COMPLETE YES; EOS % 0.4 %; HEMATOCRIT 29.8 % (37-47); IG% 0.3 %; LYMPH % 9.9 %; LYMPH ABS # 1.38 K/uL (1.2-3.4); MEAN CORPUSCULAR HEMOGLOBIN 27.5 pg (25-34); MEAN CORPUSCULAR HGB CONC 30.5 g/dl (32-36); MEAN PLATELET VOLUME 9.7 fL (7.4-10.4); MONO % 9.6 %; NEUT % 79.7 %; PLATELET COUNT 332 K/uL (130-400); RED BLOOD COUNT 3.31 M/uL (4.2-5.4); WHITE BLOOD COUNT 13.87 K/uL (4.8-10.8)
[2016-10-07] MEDS ORDERED: BACITRACIN 50000 UNIT VIAL ONE ×2 (06:43→06:59)
[2016-10-07] MEDS ORDERED: POVIDONE-IODINE OP SOLN 30 ML BTL ONE (06:43)
[2016-10-07 06:58] LABS: BUN/CREATININE RATIO 29.1 (10-20); CALCIUM 8.7 mg/dl (8.5-10.1); CREATININE 0.74 mg/dl (0.60-1.20); POTASSIUM 4.2 mmol/L (3.5-5.1)
[2016-10-07] MEDS: INSULIN ASPART 100 UNITS/ML 3 ML PEN SC SCH ×4 (07:00→21:10)
[2016-10-07] MEDS ORDERED: ONDANSETRON INJ 2 MG/ML 2 ML VIAL ONE (07:06)
[2016-10-07] MEDS ORDERED: PROPOFOL IV EMULSION 10 MG/ML 20 ML VIAL IV ONE (07:06)
[2016-10-07] MEDS ORDERED: FENTANYL CITRATE INJ 50 MCG/1 ML 2 ML VIAL ONE ×5 (07:07→10:38)
[2016-10-07] MEDS ORDERED: MIDAZOLAM HCL 1 MG/ML 2ML VIAL ONE (07:07)
--- NOTE | 2016-10-07 07:35 | Progress Note ---
Orthopedic SOAP Note Subjective Date of Service: October 07, 2016. Additional Notes: c/o pain ,mental status improved Problem List Medical Problems: (1) Asthma Status: Chronic (2) Infection of total right knee replacement Status: Acute (3) Knee pain Status: Acute (4) Septic joint Status: Acute Objective central incision opened up and draining purulent material Date Time Temp Pulse Resp B/P Pulse Ox O2 Delivery O2 Flow Rate FiO2 10/07/16 04:00 Nasal Cannula 3.0 10/07/16 03:52 36.9 84 20 118/72 95 Nasal Cannula 3.0 10/07/16 00:00 37.2 74 20 135/79 97 Nasal Cannula 3.0 10/06/16 23:59 Nasal Cannula 3.0 10/06/16 20:55 78 10/06/16 20:30 37.3 78 16 102/62 93 Nasal Cannula 3.0 10/06/16 20:30 Nasal Cannula 3.0 10/06/16 20:30 37.3 77 16 95 3.0 10/06/16 19:12 37.5 10/06/16 16:30 92 Room Air 10/06/16 15:20 37.7 83 18 142/76 92 Room Air 10/06/16 08:37 76 122/73 Laboratory Results 24 Hours: Test 10/07/16 05:40 White Blood Count 13.87 K/uL Red Blood Count 3.31 M/uL Hemoglobin 9.1 g/dL Hematocrit 29.8 % Mean Corpuscular Volume 90.0 fL Mean Corpuscular Hemoglobin 27.5 pg Mean Corpuscular Hemoglobin Concent 30.5 g/dl Platelet Count 332 K/uL Mean Platelet Volume 9.7 fL Neutrophils (%) (Auto) 79.7 % Lymphocytes (%) (Auto) 9.9 % Monocytes (%) (Auto) 9.6 % Eosinophils (%) (Auto) 0.4 % Basophils (%) (Auto) 0.1 % Neutrophils # (Auto) 11.04 K/uL Lymphocytes # (Auto) 1.38 K/uL Monocytes # (Auto) 1.33 K/uL Eosinophils # (Auto) 0.06 K/uL Basophils # (Auto) 0.02 K/uL Assessment acute postop infection,condition has progressed and now 48 hours off eliquis and will proceed with surgical debridement and poly exchange Plan incision and drainage ,likely poly exchange and placement drains and antibiotic beads.
[2016-10-07] MEDS ORDERED: VANCOMYCIN HCL 1000MG/20ML VIAL ONE ×2 (07:54→07:56)
[2016-10-07] MEDS ORDERED: NEOSTIGMINE METHYLSULFATE 5 MG/5 ML SYR ONE (08:00)
[2016-10-07] MEDS ORDERED: LIDOCAINE HCL 2% 2 ML VIAL (20MG/ML) ONE (08:00)
[2016-10-07] MEDS ORDERED: ROCURONIUM BROMIDE 10 MG/ML 5 ML VIAL ONE (08:00)
[2016-10-07] MEDS ORDERED: GLYCOPYRROLATE INJ 0.2 MG/ML VIAL ONE ×2 (08:00→08:36)
[2016-10-07] MEDS ORDERED: CEFAZOLIN SOD 1 GM VIAL ONE (08:00)
[2016-10-07] MEDS ORDERED: ALBUTEROL HFA INHALER 8.5 GM INH ONE (08:02)
[2016-10-07] MEDS ORDERED: LABETALOL HCL IV 5 MG/ML 20ML IV PRN (08:15)
[2016-10-07] MEDS ORDERED: MEPERIDINE HCL 25 MG/ML CARP IV PRN (08:15)
[2016-10-07] MEDS ORDERED: ATROPINE SULFATE 0.1 MG/ML 5ML SYR IV PRN (08:15)
[2016-10-07] MEDS ORDERED: EpHEDrine SULFATE INJ 50 MG/ML AMP IV PRN (08:15)
[2016-10-07] MEDS ORDERED: HYDROmorphone INJ 1 MG/ML SYR IV PRN (08:15)
[2016-10-07] MEDS ORDERED: ONDANSETRON INJ 2 MG/ML 2 ML VIAL IV PRN (08:15)
[2016-10-07] MEDS: NSS + 20MEQ KCL 1000ML 1,000 ML IV SCH ×2 (08:45→17:03)
[2016-10-07] MEDS: NIACIN 500 MG TAB IMMEDIATE RELEASE PO SCH (09:00)
[2016-10-07] MEDS: OXYCODONE HCL 10 MG TABCR (OXYCONTIN) PO SCH ×2 (09:00→21:00)
[2016-10-07] MEDS: PANTOprazole SOD 40 MG TAB PO SCH (09:00)
[2016-10-07] MEDS: DOCUSATE SODIUM 100 MG CAP PO SCH ×2 (09:00→21:01)
[2016-10-07] MEDS: CARVEDILOL 25 MG TAB PO SCH ×3 (09:00→21:01)
[2016-10-07] MEDS: SENNA 8.6 MG TAB PO SCH (09:00)
[2016-10-07] MEDS: MULTIVITAMIN TAB PO SCH (09:00)
[2016-10-07] MEDS: RIFAMPIN 300 MG CAP PO SCH ×2 (09:00→21:01)
--- NOTE | 2016-10-07 09:41 | Pharmacy Progress Note ---
Pharmacy Abx Dose Short Note Date of Service October 07, 2016. Assessment & Plan Assessment * 66 year old female receiving VANCOMYCIN 1300mg (~14mg/kg) IV Q 14 hours for treatment of infected R TKA * Day # 3 of antimicrobial therapy. * Renal fxn continues to improve each day: SCr 1.2 --> 0.95 --> 0.74, U.O. marginal - only 850mL output reported yesterday (0.38mL/kg/hour), but 669mL output thus far today. * WBC is falling each day, fever appears to have broken, Tmax 37.7 yesterday * Multiple cultures growing MSSA (R knee wounhd and joint fluid cx's) and BLCX' s x 2 growing staph species (ID and sensitivities pending). Converting patient to beta-lactam therapy may be an option in the near future if BLCX's also result MSSA. Beta-lactams have proven superior to Vancomycin for staph infections when susceptible due to greater bactericidal activity Plan Vancomycin * Given improving renal fxn over last 72 hrs current dose may not produce desirable trough levels * Change to 1300 mg IV every 12 hours * Goal trough level for bacteremia, bone/joint infxn : 15 to 20 mcg/mL (one of the MSSA has a vancomycin TODD = 2, higher troughs desired) * Trough or random level ordered for: 10/08/16 Pharmacy will continue to follow and will adjust dose/frequency as necessary. Thank you.
--- NOTE | 2016-10-07 09:51 | [facility] Operative Report ---
Operative Report Operative Date October 07, 2016. Pre-Operative Diagnosis Right total knee arthroplasty infection Post-Operative Diagnosis same deep infection Procedure(s) Performed irrigation and debridement and synovectomy and poly exchange tibial component placement antibiotic beads and closure over drains Surgeon Dr Fine Extrusion Technician Surgeon(s) Brannon Ybarra PA-C Estimated Blood Loss 10CC Findings deep infection,mcl laxity Specimens Explanted implant and cultures Drains 4 hemovac Anesthesia general Complication(s) None Disposition Surgical ICU Indications acute postop septic total knee I attest to the content of the Intraoperative Record and any orders documented therein. Any exceptions are noted below.
[2016-10-07] MEDS: FENTANYL CITRATE INJ 50 MCG/1 ML 2 ML VIAL IV PRN ×4 (10:19→10:45)
--- NOTE | 2016-10-07 10:37 | Anesthesiology Progress Note ---
Anesthesia Post Op Note Date & Time October 07, 2016 at 10:37 Vital Signs Pain Intensity: 0.0 Vital Signs Past 12 Hours Date Time Temp Pulse Resp B/P Pulse Ox O2 Delivery O2 Flow Rate FiO2 10/07/16 04:00 Nasal Cannula 3.0 10/07/16 03:52 36.9 84 20 118/72 95 Nasal Cannula 3.0 10/07/16 00:00 37.2 74 20 135/79 97 Nasal Cannula 3.0 10/06/16 23:59 Nasal Cannula 3.0 Notes Mental Status: alert / awake / arousable, participated in evaluation Pt Amnestic to Procedure: Yes Nausea / Vomiting: adequately controlled Pain: adequately controlled Airway Patency, RR, SpO2: stable & adequate BP & HR: stable & adequate Hydration State: stable & adequate Anesthetic Complications: no major complications apparent
--- NOTE | 2016-10-07 10:56 | DIAGNOSTIC IMAGING REPORT ---
RIGHT KNEE 1 OR 2 VIEWS ROUTINE CLINICAL HISTORY: Post implantation of antibiotic beads and spacer. COMPARISON: Knee radiograph October 05, 2016. FINDINGS: Surgical drains and skin jesus are present. Numerous tiny radiodensities represent antibiotic beads. There are no unexpected radiopaque foreign bodies. There is no periprosthetic fracture or lucency. Expected postoperative findings are noted. IMPRESSION: Expected findings following placement of antibiotic beads. No periprosthetic fracture or lucency. Electronically signed by: Quincy Green M.D. 10/07/2016 10:54 AM Dictated Date/Time: 10/07/2016 10:53 AM
--- NOTE | 2016-10-07 12:28 | Hospitalist Progress Note ---
Hospitalist Progress Note Date of Service October 07, 2016. (Valorie Correa PA-C) Subjective Pt evaluation today including: conversation w/ patient, physical exam, chart review, lab review, review of studies Pain: 10/10 knee pain Voiding: montanez catheter in place The patient was seen and examined this morning. Pt reports pain in left knee is a 10/10, she has just returned to tele floor from washout this morning. She denies any other acute complaints. Her breathing is ok, no chest pain, no abd pain or nausea. She denies numbness or tingling and has feeling in her left foot/toes. Additional Comments: Constitutional: No fever, chills, sweats, fatigue or weakness Eyes: No diplopia, no changes in vision ENT: No sore throat, tinnitus, or trouble swallowing Respiratory: No shortness of breath, No dyspnea at rest or on exertion, no cough or sputum Cardiovascular: No chest pain, palpitations, or flutter Abdomen: No pain, No constipation, No diarrhea, No nausea, No vomiting Musculoskeletal: Left knee pain rated 10 /10, No calf pain, No swelling Genitourinary : montanez catheter in place Neurologic: No numbness/tingling, no difficulty with ambulation, no sensory or motor deficits (Valorie Correa, MORELIA) Objective Vital Signs Date Time Temp Pulse Resp B/P Pulse Ox O2 Delivery O2 Flow Rate FiO2 10/07/16 12:04 37.2 88 18 120/74 97 Nasal Cannula 3.0 10/07/16 11:30 36.6 87 20 119/51 98 Nasal Cannula 2.0 10/07/16 11:25 98 Nasal Cannula 3.0 10/07/16 10:55 36.8 72 18 104/56 96 Nasal Cannula 3 10/07/16 10:45 86 18 156/57 96 Nasal Cannula 3 10/07/16 10:35 86 18 130/58 99 Nasal Cannula 3 10/07/16 10:25 86 16 141/57 99 Mask 10 10/07/16 10:15 88 16 139/75 99 Mask 10 10/07/16 10:05 36.3 85 16 141/75 99 Mask 10 10/07/16 04:00 Nasal Cannula 3.0 10/07/16 03:52 36.9 84 20 118/72 95 Nasal Cannula 3.0 10/07/16 00:00 37.2 74 20 135/79 97 Nasal Cannula 3.0 10/06/16 23:59 Nasal Cannula 3.0 10/06/16 20:55 78 10/06/16 20:30 37.3 78 16 102/62 93 Nasal Cannula 3.0 10/06/16 20:30 Nasal Cannula 3.0 10/06/16 20:30 37.3 77 16 95 3.0 10/06/16 19:12 37.5 10/06/16 16:30 92 Room Air 10/06/16 15:20 37.7 83 18 142/76 92 Room Air (Valorie Correa, PA-C) Physical Exam Notes: General: awake, alert, no apparent distress, obese, awake Head: Normocephalic, atraumatic ENT: PERRL, EOMI, no pharyngeal exudate, mucous membranes moist Chest: Expiratory and inspiratory wheezing, on 3L O2 via NC, faint crackles at bases Cardiac: Regular rate and rhythm, no murmur, no JVD, normal peripheral pulses, good capillary refill Abdominal: NABS x 4 quadrants, soft, nontender to palpation, no rebound, guarding or tenderness Extremities: + R knee wrapped in Tristan wrap, ice pack on top, patient to light touch distally is intact, +1 pitting edema of bilateral lower extremities. Psych: Normal mood and affect (Valorie Correa, PA-C) Neck: + thyroid abnormalities (goiter, multi nodular; dominant nodule right lobe, about 1-1.5cm) (Mars Ace MD) Laboratory Results Last 24 Hours Test 10/06/16 17:14 10/06/16 18:44 10/06/16 20:26 10/06/16 20:56 Bedside Glucose 130 mg/dl 131 mg/dl 134 mg/dl Venous Blood pH 7.40 Venous Blood Partial Pressure CO2 46 mmHg Venous Blood Partial Pressure O2 46 mmHg Venous Blood HCO3 28 mmol/L Venous Blood Oxygen Saturation 80.2 % Venous Blood Base Excess 2.8 mmol/L Thyroid Stimulating Hormone (TSH) < 0.005 uIu/ml Free Thyroxine 1.78 ng/dl Digoxin Level 1.0 ng/ml Test 10/07/16 05:40 5/14/17 06:30 White Blood Count 13.87 K/uL Red Blood Count 3.31 M/uL Hemoglobin 9.1 g/dL Hematocrit 29.8 % Mean Corpuscular Volume 90.0 fL Mean Corpuscular Hemoglobin 27.5 pg Mean Corpuscular Hemoglobin Concent 30.5 g/dl Platelet Count 332 K/uL Mean Platelet Volume 9.7 fL Neutrophils (%) (Auto) 79.7 % Lymphocytes (%) (Auto) 9.9 % Monocytes (%) (Auto) 9.6 % Eosinophils (%) (Auto) 0.4 % Basophils (%) (Auto) 0.1 % Neutrophils # (Auto) 11.04 K/uL Lymphocytes # (Auto) 1.38 K/uL Monocytes # (Auto) 1.33 K/uL Eosinophils # (Auto) 0.06 K/uL Basophils # (Auto) 0.02 K/uL RDW Standard Deviation 48.5 fL RDW Coefficient of Variation 14.8 % Immature Granulocyte % (Auto) 0.3 % Immature Granulocyte # (Auto) 0.04 K/uL Sodium Level 139 mmol/L Potassium Level 4.2 mmol/L Chloride Level 104 mmol/L Carbon Dioxide Level 29 mmol/L Anion Gap 6.0 mmol/L Blood Urea Nitrogen 22 mg/dl Creatinine 0.74 mg/dl Est Creatinine Clear Calc Drug Dose 87.0 ml/min Estimated GFR () 98.5 Estimated GFR (Non- 85.0 BUN/Creatinine Ratio 29.1 Random Glucose 140 mg/dl Calcium Level 8.7 mg/dl Bedside Glucose 160 mg/dl (Valorie Correa, PACesarC) Assessment and Plan 66 yo F with PMHX of CHF, CAD s/p MT in 2013, pacemaker insertion, DM II, Asthma , and s/p R TKA on 09/18 now admitted with septic joint. Septic Joint - S/p R TKA on 09/[address] Mays admitted for Sepsis with infected right knee joint - underwent - irrigation and debridement and synovectomy and poly exchange tibial component placement antibiotic beads and closure over drains - Synovial fluid sent for gram stain and culture growing + staph aureus - Blood culture preliminary reports are Staph species - Pt started on vancomycin and daptomycin - continue for now. - WBC trended down from 21K to 13 K - Restart apixaban when cleared per ortho - Analgesia with oxycodone prn, tylenol, and try to avoid morphine unless for breakthrough/severe pain. DM II - Hgb A1C=6.9 - Continue ISS with accuchecks. CHF CAD s/p MT in 2013, s/p pacemaker placement - Cont [employer] meds including digoxin 0.125 daily, diltiazem 120 mg at bedtime, Lasix 40 mg by mouth twice a day, spironolactone 25 mg by mouth daily - Pt sounds regular on exam but plan to order a 12 lead EKG due to tele strips with some irregularities, pt sounds regular on exam. Asthma -Pro Air, nebulizer treatments QID and Q2H prn for shortness of breath DVT ppx: teds, scds, holding eliquis in anticipation of surgical procedure CODE STATUS: FULL CODE Disposition: From home, will need rehab (Valorie Correa, MORELIA) Attending Attestation: Pt seen/examined, chart reviewed, care plan d/w MOJGAN Correa. I agree w/ the lee components of her documentation. I saw the patient post-op from her right knee washout. She was confused - couldn't tell me the year, month or where she was. She c/o knee pain. She also reported she was told in the past she had hyperthyroidism but denies any history of taking meds for such. VSS Tm 37.9 gen - looks sick but actually better than yesterday neck - JVD now present mouth - MMM heart - irregular, s1, s2, 2/6 systolic murmur LSB lungs - course BS b/l, wheezing, rales bases abd - soft ext - right leg wrapped in large TRISTAN; pulses 2+ b/l; no edema TSH undetectable FT4 elevated Cr normal CBC - wbc 13 A/P: 1. sepsis and bacteremia 2nd to septic right knee - due to MSSA - echo w/o obvious valvular vegetations repeat blood cx's in am to ensure sterility s/p washout in OR today 2. hyperthyroidism - in light of significant heart disease (a. fib, CHF, etc) will start treatment with methimazole 10mg daily check thyroid u/s will need endo f/u after discharge repeat TSH/FT4 later this week 3. chronic systolic CHF - compensated or becoming slightly volume overloaded. stop fluids 4. pacemaker/AICD status 5. metabolic encephalopathy - continue to Rx #1 6. T2DM - control acceptable for now. repeat labs in am Mars Ace MD (Mars Ace MD)
[2016-10-07] MEDS ORDERED: METHIMAZOLE 5 MG TAB PO ONE (12:30)
[2016-10-07] MEDS: OXYCODONE HCL IR 5 MG TAB (IMMEDIATE RELEASE) PO PRN (14:04)
--- NOTE | 2016-10-07 14:25 | ECHOCARDIOGRAM REPORT ---
*NOTICE TO RECEIVING REPUBLICAN AGENCY This information is strictly Confidential and protected under [place] law. [place] law prohibits you from making any further disclosure of this information unless further disclosure is expressly permitted by the written consent of the person to whom it pertains or is authorized by law. A general authorization for the release of medical or other information is not sufficient for this purpose. Hospital accepts no responsibility if the information is made available to any other person, INCLUDING THE PATIENT. Interpretation Summary * Name: MATTY HARVEY Study Date: 10/07/2016 12:48 PM BP: 120/74 mmHg * Patient Location: C.2T\S\S234\S\1 HR: 112 * : 1950 (M/d/yyyy) Gender: Female Height: 66 in * Age: 66 yrs Ethnicity: CA Weight: 204 lb * Ordering Physician: Mars Ace * Referring Physician: Self, Referred * Performed By: Nereida Nicholson RDCS * * Reason For Study: ENDOCARDITIS * BSA: 2.0 m2 * Mild left ventricular systolic dysfunction. * Mild aortic stenosis. * Trace aortic regurgitation. * Moderate mitral regurgitation. * Mild tricuspid regurgitation. * Mild pulmonary hypertension. * There is no evidence of a mass or vegetation. This does not rule out endocarditis. Procedure Details * A complete two-dimensional transthoracic echocardiogram was performed (2D, M-mode, Doppler and color flow Doppler). Left Ventricle * The left ventricle is normal in size. * There is normal left ventricular wall thickness. * Ejection Fraction = 45-50%. * Left ventricular systolic function is mildly reduced. * There is mild global hypokinesis of the left ventricle. Right Ventricle * The right ventricle is normal in size and function. * There is a pacemaker lead in the right ventricle. Atria * The left atrium is mildly dilated. * Right atrial size is normal. * No ASD detected; PFO is not assessed. Mitral Valve * The mitral valve is normal. * There is no mitral valve stenosis. * There is moderate mitral regurgitation. Tricuspid Valve * The tricuspid valve is not well visualized, but is grossly normal. * There is no tricuspid stenosis. * There is mild tricuspid regurgitation. * Right ventricular systolic pressure is elevated at 40-50mmHg. Aortic Valve * The aortic valve is trileaflet. * The aortic valve leaflets are sclerotic . Decreased opening on 2 D imaging. * Mild valvular aortic stenosis. * Dimensionless aortic valve index 0.54. * Trace aortic regurgitation. Pulmonic Valve * The pulmonic valve is not well visualized. * The pulmonary valve is inadequately visualized, but the Doppler data is adequate for interpretation. * There is no pulmonic valvular stenosis. * There is no significant pulmonary regurgitation. Great Vessels * The aortic root is normal size. Pericardium/Pleural * There is no pericardial effusion. Great Vessels * Normal inferior vena cava diameter and respiratory variation suggests normal central venous pressure. MMode 2D Measurements and Calculations IVSd 0.87 cm IVSs 1.3 cm LVIDd 5.3 cm LVIDs 4.1 cm LVPWd 0.96 cm LVPWs 1.5 cm IVS/LVPW 0.90 FS 23.3 % EDV(Teich) 138.2 ml ESV(Teich) 74.2 ml EF(Teich) 46.3 % EDV(cubed) 153.0 ml ESV(cubed) 68.9 ml EF(cubed) 54.9 % % IVS thick 44.4 % % LVPW thick 56.7 % LV mass(C)d 180.8 grams LV mass(C)dI 89.6 grams/m\S\2 LV mass(C)s 211.6 grams LV mass(C)sI 104.9 grams/m\S\2 SV(Teich) 64.0 ml SI(Teich) 31.7 ml/m\S\2 SV(cubed) 84.1 ml SI(cubed) 41.7 ml/m\S\2 Ao root diam 3.3 cm Ao root area 8.5 cm\S\2 LA dimension 4.2 cm LA/Ao 1.3 LVAd ap4 40.9 cm\S\2 LVLd ap4 9.2 cm EDV(MOD-sp4) 153.8 ml EDV(sp4-el) 155.2 ml LVAs ap4 26.6 cm\S\2 LVLs ap4 7.5 cm ESV(MOD-sp4) 79.7 ml ESV(sp4-el) 80.1 ml EF(MOD-sp4) 48.2 % EF(sp4-el) 48.4 % LVAd ap2 39.8 cm\S\2 LVLd ap2 9.4 cm EDV(MOD-sp2) 146.7 ml EDV(sp2-el) 143.4 ml LVAs ap2 26.3 cm\S\2 LVLs ap2 8.0 cm ESV(MOD-sp2) 74.5 ml ESV(sp2-el) 73.2 ml EF(MOD-sp2) 49.2 % EF(sp2-el) 48.9 % LVLd %diff 2.3 % EDV(MOD-bp) 148.1 ml LVLs %diff 6.3 % ESV(MOD-bp) 79.0 ml EF(MOD-bp) 46.7 % SV(MOD-sp4) 74.1 ml SI(MOD-sp4) 36.7 ml/m\S\2 SV(MOD-sp2) 72.2 ml SI(MOD-sp2) 35.8 ml/m\S\2 SV(MOD-bp) 69.1 ml SI(MOD-bp) 34.2 ml/m\S\2 SV(sp4-el) 75.0 ml SI(sp4-el) 37.2 ml/m\S\2 SV(sp2-el) 70.2 ml SI(sp2-el) 34.8 ml/m\S\2 Doppler Measurements and Calculations Ao V2 max 245.8 cm/sec Ao max PG 24.2 mmHg Ao max PG (full) 17.2 mmHg Ao V2 mean 185.8 cm/sec Ao mean PG 14.9 mmHg Ao mean PG (full) 11.0 mmHg Ao V2 VTI 47.7 cm LV V1 max PG 7.0 mmHg LV V1 mean PG 3.9 mmHg LV V1 max 132.2 cm/sec LV V1 mean 93.5 cm/sec LV V1 VTI 28.0 cm SV(Ao) 407.3 ml SI(Ao) 202.0 ml/m\S\2 TR max reyes 326.9 cm/sec
[2016-10-07] MEDS: DIGOXIN 0.125 MG TAB PO SCH (17:03)
--- NOTE | 2016-10-07 17:11 | Medical Student: [facility] ---
Med Student Progress Note Date of Service October 07, 2016. Subjective Pt evaluation today including: conversation w/ patient, physical exam, chart review, lab review, review of studies Pain: controlled with oral pain meds PO Intake: liquid diet Voiding: montanez catheter in place patient underwent surgery this morning to wash out joint. this afternoon she reports that she is feeling somewhat better. she reports continued confusion. she did not express any pain at this time. she denies chest pain or difficulty breathing. no other symptoms to report. Review of Systems Constitutional: + chills, + fever Eyes: No worsening of vision Respiratory: + shortness of breath Cardiac: No chest pain Abdomen: No nausea Musculoskeletal: + joint pain Objective Vital Signs Date Time Temp Pulse Resp B/P Pulse Ox O2 Delivery O2 Flow Rate FiO2 10/07/16 15:35 37.0 98 20 127/69 95 Nasal Cannula 3.0 10/07/16 12:04 37.2 88 18 120/74 97 Nasal Cannula 3.0 10/07/16 11:30 36.6 87 20 119/51 98 Nasal Cannula 2.0 10/07/16 11:25 98 Nasal Cannula 3.0 10/07/16 10:55 36.8 72 18 104/56 96 Nasal Cannula 3 10/07/16 10:45 86 18 156/57 96 Nasal Cannula 3 10/07/16 10:35 86 18 130/58 99 Nasal Cannula 3 10/07/16 10:25 86 16 141/57 99 Mask 10 10/07/16 10:15 88 16 139/75 99 Mask 10 10/07/16 10:05 36.3 85 16 141/75 99 Mask 10 10/07/16 04:00 Nasal Cannula 3.0 10/07/16 03:52 36.9 84 20 118/72 95 Nasal Cannula 3.0 10/07/16 00:00 37.2 74 20 135/79 97 Nasal Cannula 3.0 10/06/16 23:59 Nasal Cannula 3.0 10/06/16 20:55 78 10/06/16 20:30 37.3 78 16 102/62 93 Nasal Cannula 3.0 10/06/16 20:30 Nasal Cannula 3.0 10/06/16 20:30 37.3 77 16 95 3.0 10/06/16 19:12 37.5 Physical Exam General Appearance: + pertinent finding (ill-appearing) Eyes: bilateral eyes PERRL ENT: hearing grossly normal, pharynx normal Neck: supple, + JVD, + thyroid abnormalities (multiple nodules palpated) Respiratory/Chest: chest non-tender, no respiratory distress, + crackles ( bibasilar crackles) Cardiovascular: no gallop, + systolic murmur Abdomen: normal bowel sounds, non tender, soft Extremities: + swelling (right leg), + pertinent finding (right knee bandaged following surgery) Neurologic/Psychiatric: alert, + disoriented (oriented to self) Skin: no rash, + pallor Laboratory Results Last 24 Hours Test 10/06/16 17:14 10/06/16 18:44 10/06/16 20:26 10/06/16 20:56 Bedside Glucose 130 mg/dl 131 mg/dl 134 mg/dl Venous Blood pH 7.40 Venous Blood Partial Pressure CO2 46 mmHg Venous Blood Partial Pressure O2 46 mmHg Venous Blood HCO3 28 mmol/L Venous Blood Oxygen Saturation 80.2 % Venous Blood Base Excess 2.8 mmol/L Thyroid Stimulating Hormone (TSH) < 0.005 uIu/ml Free Thyroxine 1.78 ng/dl Digoxin Level 1.0 ng/ml Test 10/07/16 05:40 10/07/16 06:30 10/07/16 11:49 10/07/16 15:59 White Blood Count 13.87 K/uL Red Blood Count 3.31 M/uL Hemoglobin 9.1 g/dL Hematocrit 29.8 % Mean Corpuscular Volume 90.0 fL Mean Corpuscular Hemoglobin 27.5 pg Mean Corpuscular Hemoglobin Concent 30.5 g/dl Platelet Count 332 K/uL Mean Platelet Volume 9.7 fL Neutrophils (%) (Auto) 79.7 % Lymphocytes (%) (Auto) 9.9 % Monocytes (%) (Auto) 9.6 % Eosinophils (%) (Auto) 0.4 % Basophils (%) (Auto) 0.1 % Neutrophils # (Auto) 11.04 K/uL Lymphocytes # (Auto) 1.38 K/uL Monocytes # (Auto) 1.33 K/uL Eosinophils # (Auto) 0.06 K/uL Basophils # (Auto) 0.02 K/uL RDW Standard Deviation 48.5 fL RDW Coefficient of Variation 14.8 % Immature Granulocyte % (Auto) 0.3 % Immature Granulocyte # (Auto) 0.04 K/uL Sodium Level 139 mmol/L Potassium Level 4.2 mmol/L Chloride Level 104 mmol/L Carbon Dioxide Level 29 mmol/L Anion Gap 6.0 mmol/L Blood Urea Nitrogen 22 mg/dl Creatinine 0.74 mg/dl Est Creatinine Clear Calc Drug Dose 87.0 ml/min Estimated GFR () 98.5 Estimated GFR (Non- 85.0 BUN/Creatinine Ratio 29.1 Random Glucose 140 mg/dl Calcium Level 8.7 mg/dl Bedside Glucose 160 mg/dl 166 mg/dl 203 mg/dl Medications Current Inpatient Medications Medications (Trade) Dose Ordered Sig/Julianna Route Start Time Stop Time Status Last Admin Dose Admin Al Hydroxide/Mg Hydroxide (Maalox Susp) 30 ml Q6H PRN PO 10/05/16 17:00 11/04/16 16:59 Docusate Sodium (coLACE CAP) 100 mg BID PO 10/05/16 21:00 11/04/16 20:59 10/06/16 08:34 100 MG Pantoprazole Sodium (Protonix Tab) 40 mg QAM PO 10/06/16 09:00 11/05/16 08:59 10/06/16 08:39 40 MG Magnesium Hydroxide (Milk Of Magnesia Susp) 30 ml Q6H PRN PO 10/05/16 17:00 11/04/16 16:59 Oxycodone HCl (Roxicodone Immediate Rel Tab) `1-2 tabs for pain 1 tab ... Q4HWA PRN PO 10/05/16 17:00 10/19/16 16:59 10/07/16 14:04 10 MG Oxycodone HCl (Oxycontin Tab) 10 mg Q12H PO 10/05/16 17:00 10/19/16 16:59 10/06/16 21:00 10 MG Senna (Senokot Tab) 17.2 mg QAM PO 10/06/16 09:00 11/05/16 08:59 10/06/16 08:39 17.2 MG Acetaminophen (Tylenol Tab) 1,000 mg Q8 PRN PO 10/05/16 17:00 11/04/16 16:59 10/06/16 18:21 1,000 MG Carvedilol (Coreg Tab) 25 mg BID PO 10/05/16 21:00 11/04/16 20:59 10/07/16 13:46 25 MG Digoxin (Lanoxin Tab) 0.125 mg DAILY@1600 PO 10/05/16 16:00 11/04/16 15:59 10/06/16 20:55 0.125 MG Insulin Glargine (Lantus Solostar Pen) 12 unit HS SC 10/05/16 21:00 11/04/16 20:59 10/05/16 22:02 12 UNIT Multivitamins (Multivitamin Tab) 1 tab QAM PO 10/06/16 09:00 11/05/16 08:59 10/06/16 08:39 1 TAB Niacin (Niacin Tab) 500 mg QAM PO 10/06/16 09:00 11/05/16 08:59 10/06/16 08:40 500 MG Albuterol Sulfate (Ventolin 0.083% 2.5MG/3ML Neb) 2.5 mg Q4H PRN INH 10/05/16 17:30 11/04/16 17:29 Albuterol (Proair Hfa) 2 puffs Q4 PRN INH 10/05/16 17:00 11/04/16 16:59 Miscellaneous Information (Consult Glycemic Management Pharmacy) 1 ea UD N/A 10/05/16 17:25 11/04/16 17:24 Insulin Aspart (novoLOG ASPART) SLIDING SCALE ACHS SC 10/05/16 21:00 11/04/16 20:59 10/07/16 13:11 2 UNITS Glucose (Glucose 40% Gel) 15-30 GRAMS 15 GRAMS... UD PRN PO 10/05/16 17:45 11/04/16 17:44 Glucose (Glucose Chew Tab) 4-8 Tablets 4 Tabl... UD PRN PO 10/05/16 17:45 11/04/16 17:44 Dextrose (Dextrose 50% 50ML Syringe) 25-50ML OF 50% DW IV FOR... UD PRN IV 10/05/16 17:45 11/04/16 17:44 Glucagon (Glucagon Inj) 1 mg UD PRN SQ 10/05/16 17:45 11/04/16 17:44 Morphine Sulfate (MoRPHine SULFATE INJ) 2 mg Q4HWA PRN IV 10/05/16 19:00 10/19/16 18:59 10/06/16 08:26 2 MG Morphine Sulfate (MoRPHine SULFATE INJ) 4 mg Q4HWA PRN IV 10/05/16 19:00 10/19/16 18:59 10/05/16 21:57 4 MG Morphine Sulfate (MoRPHine SULFATE INJ) 6 mg Q4HWA PRN IV 10/05/16 19:00 10/19/16 18:59 10/07/16 14:27 6 MG Vancomycin HCl (Consult) 1 ea UD PRN N/A 10/05/16 19:15 11/04/16 19:14 Rifampin 300 mg 300 mg BID PO 10/06/16 21:00 11/17/16 20:59 10/06/16 20:55 300 MG Potassium Chloride/Sodium Chloride 1,000 ml @ 100 mls/hr Q10H IV 10/06/16 22:45 11/05/16 22:44 10/06/16 22:58 100 MLS/HR Vancomycin HCl/ Sodium Chloride (Vancomycin Inj/ Nss 250ml) 276 ml @ 125 mls/hr Q12H IV 10/07/16 16:00 11/17/16 23:59 Methimazole (Methimazole Tab) 10 mg DAILY PO 10/08/16 09:00 11/07/16 08:59 Assessment and Plan Problems Infection of total right knee replacement Septic joint CHF (congestive heart failure) Diabetes Pacemaker Assessment and Plan: This is a 66 yo female who presented with a septic joint following TKA several weeks ago. Septic joint: -Surgical removal and replacement with debridement and antibiotic bead placement this morning went well -Continue IV vancomycin -Blood cultures positive -Echocardiography results pending -If positive will consider additional extended abx therapy -All cultures growing out gram+ staph at this point Congestive heart failure: -Appears to be fluid overloaded -D/c IV fluids at this time -Will evaluate again tomorrow to assess need for diuretics Hyperthyroid: -TSH depressed, elevated free T4 -Multiple nodules on thyroid -Started methimazole -Will US tomorrow for evaluation of nodules/size of thyroid. Asthma: -Continue current asthma regimen Diabetes: -Continue current diabetes control DVT prophylaxis: -Follow orthopedic recommendations Continued [facility] stay due to: inadequate oral pain control, ambulation difficulties, multiple IV medications needed Discharge planning: uncertain
--- NOTE | 2016-10-07 18:17 | OPERATIVE REPORT ---
DATE OF OPERATION: 10/05/2016 INDICATION FOR PROCEDURE: The patient is a 66-year-old female who is approximately 2 weeks postop total knee replacement by Dr. Mays. She developed pain and swelling in her knee, erythema, deep aspiration demonstrated purulent fluid. We could not do surgery initially because she was on Eliquis and had to wait 48 hours. The patient's wound opened over the anterior knee and started draining purulent fluid at this point in time, was clearly a periprosthetic joint deep infection. Radiographs demonstrate well fixed implants, some calcifications on the medial side of her knee possible multiple loose bodies and soft tissue and possible pes bursa or medial fatty soft tissue area. PREOPERATIVE DIAGNOSES: Right septic total knee replacement with acute infection postoperatively and obesity, BMI 33. POSTOPERATIVE DIAGNOSES: Same including MCL laxity. PROCEDURE: Right knee irrigation, debridement, synovectomy with polyethylene exchange of tibial component with a constrained component with placement of antibiotic beads and closure over drains. SURGEON: Omer Fine MD SENIOR INSTRUCTIONAL DESIGNER: MOJGAN Linton ANESTHESIA: General. OPERATIVE PROCEDURE: The patient was taken to the operating room and anesthetized under general anesthetic. Her right knee exam demonstrated that she had erythema across the anterior knee, a centimeter opening in the upper third of her incision draining steve pus. She had an obese thigh and leg. Pneumatic tourniquet was placed about her upper thigh. Right lower extremity was prepped and draped using Betadine scrub and paint. Her leg was elevated but not exsanguinated and then the pneumatic tourniquet was raised to 350 mmHg. Her anterior incision over the knee was opened up revealing steve pus in the subcutaneous tissues and pus coming out of the medial retinacular closure and there was sort of friable tissue from the infection at the repair site, although none of the repair had disrupted. We obtained deep cultures from the knee joint and then irrigated out the subcutaneous tissues. We raised the flaps slightly more so we could fully visualize the extensor mechanism from the tibial tubercle to the upper quad. After we irrigated out the subcutaneous tissues, then I individually removed all the subcutaneous absorbable sutures including V-Loc suture. Then after the superficial layer was irrigated, we removed each individual Vicryl suture for the closure and then opened up the joint and it was clearly pus in the joint and a lot of fibrinous material and chronic synovitis consistent with infection. At this point, we did a thorough irrigation of the knee joint. After that was completed, then the polyethylene was removed using a curved osteotome to remove it easily and then we were able to access the tibial component and the posterior capsular area. This was all irrigated out copiously with antibiotic solution and bacitracin. After that was completed, the electrocautery synovectomy was performed where there was thicker areas synovium tissue. We did that in the gutters and suprapatellar area and some of the infrapatellar area. Then, we used the Versajet to debride all the surfaces including the subcutaneous tissue, skin edges, the quad tendon, retinacular area, gutters, some of the bone, the pretibial area and in the posterior capsular area. Then after further irrigation and Betadine soak, we did some trial reductions and it felt that her MCL was stretched out likely from the infection and gaining the exposure for debridement, so I felt that we needed to upsize the component to a 13-mm component and also I felt a constrained component was necessary to deal with the MCL laxity. So, the trial was removed and after further irrigation with antibiotic solution with bacitracin with a Pulsavac, we placed in the final polyethylene which was the [employer] 2.0 posterior stabilized 13-mm right constrained polyethylene component. The knee was definitely stable now through full range of motion. Then, the 2 Hemovac drains were placed deep and brought out laterally. Then, we placed antibiotic beads with Stimulan beads with vancomycin. We instilled 2 g of vancomycin to make all the beads. I would place half of them into the intra-articular joint. I then closed the quadriceps tendon and medial retinaculum with interrupted [id number] #1 Vicryl sutures. The medial retinaculum around the medial patella and down to the tibial tubercle area was pretty friable tissue from the infection, but the sutures held well through 0 through 100 degrees of flexion. Another set of drains were placed in the subcutaneous tissues and then the remainder of the antibiotic beads were placed there. Then, we closed the subcutaneous tissues with interrupted #2 bacteriostatic Vicryl sutures and then closed the skin with both 3-0 nylon in the area of the compromised skin and jesus on better skin. Then placed a superficial wound VAC in place. The tourniquet was let down, sterile dressings were applied, Tristan wrap from the foot to the thigh and the patient tolerated the procedure well. MOJGAN Linton was my assistant professor of radiology and functioned as a assistant professor of radiology through the entire procedure. He assisted in prepping, draping, leg positioning, soft tissue retraction, performed the subcutaneous and skin closure and dressings and wound VAC application, and he will participate in the postoperative care of the patient. I attest to the content of the Intraoperative Record and any orders documented therein. Any exceptio ns are noted below.
[2016-10-07] MEDS: INSULIN GLARGINE SOLOSTAR 100 UNITS/ML 3 ML PEN SC SCH (21:11)
[2016-10-07] MEDS ORDERED: VANCOMYCIN TROUGH SCH (21:30)
[2016-10-08 04:00] VITALS: BP 128/64; PULSE 111; TEMP 36.6; O2SAT 97
[2016-10-08] MEDS: VANCOMYCIN INJ 1,300 MG in SODIUM CHLORIDE 0.9% 250ML 250 ML IV SCH (04:26)
[2016-10-08] MEDS: OXYCODONE HCL IR 5 MG TAB (IMMEDIATE RELEASE) PO PRN ×3 (05:47→19:20)
[2016-10-08 06:45] LABS: BASO % 0.2 %; BASO ABS # 0.02 K/uL (0-0.2); COMPLETE YES; EOS % 0.4 %; HEMATOCRIT 29.3 % (37-47); IG% 0.4 %; LYMPH % 17.1 %; LYMPH ABS # 1.93 K/uL (1.2-3.4); MEAN CORPUSCULAR HEMOGLOBIN 28.9 pg (25-34); MEAN CORPUSCULAR HGB CONC 31.7 g/dl (32-36); MEAN PLATELET VOLUME 9.6 fL (7.4-10.4); MONO % 12.7 %; NEUT % 69.2 %; PLATELET COUNT 321 K/uL (130-400); RED BLOOD COUNT 3.22 M/uL (4.2-5.4)
[2016-10-08 07:14] LABS: BUN/CREATININE RATIO 25.8 (10-20); CALCIUM 8.9 mg/dl (8.5-10.1); CREATININE 0.5 mg/dl (0.60-1.20); POTASSIUM 4.2 mmol/L (3.5-5.1)
[2016-10-08] MEDS ORDERED: VANCOMYCIN TROUGH ONE ×2 (07:30→15:30)
--- NOTE | 2016-10-08 08:06 | DIAGNOSTIC IMAGING REPORT ---
THYROID ULTRASOUND HISTORY: The thyroid isn't. Goiter. hyperthyroidism, eval for goiter, eval for nodules COMPARISON: None. FINDINGS: Right lobe: Maximum dimension 6.0 cm. General heterogeneity throughout. Left lobe: Maximum dimension 5.5 cm. No significant nodularity. Heterogeneity throughout. Possible small 8 mm cyst upper pole. Isthmus: No nodules. IMPRESSION: 1. General heterogeneity of both thyroid lobes consistent with a nonspecific goiter. 2. Potential 8 mm cyst upper aspect left thyroid. This does not satisfy criteria for biopsy. 3. A 6-12 month follow-up is suggested Electronically signed by: Brannon Stone M.D. 10/08/2016 8:05 AM Dictated Date/Time: 10/08/2016 8:03 AM
[2016-10-08] MEDS: PANTOprazole SOD 40 MG TAB PO SCH (08:13)
[2016-10-08] MEDS: CARVEDILOL 25 MG TAB PO SCH ×2 (08:13→20:53)
[2016-10-08] MEDS: OXYCODONE HCL 10 MG TABCR (OXYCONTIN) PO SCH ×2 (08:13→20:52)
[2016-10-08] MEDS: RIFAMPIN 300 MG CAP PO SCH ×2 (08:13→20:52)
[2016-10-08] MEDS: NIACIN 500 MG TAB IMMEDIATE RELEASE PO SCH (08:13)
[2016-10-08] MEDS: DOCUSATE SODIUM 100 MG CAP PO SCH ×2 (08:14→20:53)
[2016-10-08] MEDS: MULTIVITAMIN TAB PO SCH (08:14)
[2016-10-08] MEDS: SENNA 8.6 MG TAB PO SCH (08:14)
[2016-10-08 08:28] VITALS: BP 106/64; PULSE 75; TEMP 37; O2SAT 97
--- NOTE | 2016-10-08 08:34 | Progress Note ---
Subjective Date of Service: October 08, 2016. Subjective this pt is doing well, discussions made for PICC line and longer antibiotic usage, delerium is clearing Problem List Medical Problems: (1) Asthma Status: Chronic (2) Infection of total right knee replacement Status: Acute (3) Knee pain Status: Acute (4) Septic joint Status: Acute Review of Systems Constitutional: No chills, No fever Respiratory: No cough, No shortness of breath, No sputum Cardiac: + edema, No chest pain Musculoskeletal: + joint pain, + muscle pain, + swelling Psychiatric: No anhedonism, No depression symptoms Objective Vital Signs Date Time Temp Pulse Resp B/P Pulse Ox O2 Delivery O2 Flow Rate FiO2 10/08/16 08:28 37.0 75 20 106/64 97 Nasal Cannula 2.0 10/08/16 07:15 Nasal Cannula 3.0 10/08/16 04:00 36.6 111 18 128/64 97 Nasal Cannula 2.0 10/08/16 04:00 Nasal Cannula 3.0 10/07/16 23:59 Nasal Cannula 3.0 10/07/16 23:58 36.6 99 20 110/62 93 Nasal Cannula 2.0 10/07/16 20:00 Nasal Cannula 3.0 10/07/16 18:58 37.9 93 18 145/79 97 Nasal Cannula 3.0 10/07/16 17:03 98 10/07/16 16:00 Nasal Cannula 2.0 10/07/16 15:35 37.0 98 20 127/69 95 Nasal Cannula 3.0 10/07/16 12:04 37.2 88 18 120/74 97 Nasal Cannula 3.0 10/07/16 11:30 36.6 87 20 119/51 98 Nasal Cannula 2.0 10/07/16 11:25 98 Nasal Cannula 3.0 10/07/16 10:55 36.8 72 18 104/56 96 Nasal Cannula 3 10/07/16 10:45 86 18 156/57 96 Nasal Cannula 3 10/07/16 10:35 86 18 130/58 99 Nasal Cannula 3 10/07/16 10:25 86 16 141/57 99 Mask 10 10/07/16 10:15 88 16 139/75 99 Mask 10 10/07/16 10:05 36.3 85 16 141/75 99 Mask 10 Physical Exam General Appearance: WD/WN, + mild distress Neck: supple, no JVD Respiratory/Chest: chest non-tender, lungs clear, normal breath sounds, no respiratory distress Cardiovascular: regular rate, rhythm, no murmur Abdomen: normal bowel sounds, soft Extremities: + pedal edema, + swelling Neurologic/Psychiatric: alert, oriented x 3 Laboratory Results Last 24 Hours Test 10/07/16 11:49 10/07/16 15:59 10/07/16 20:01 10/08/16 06:10 Bedside Glucose 166 mg/dl 203 mg/dl 155 mg/dl White Blood Count 11.30 K/uL Red Blood Count 3.22 M/uL Hemoglobin 9.3 g/dL Hematocrit 29.3 % Mean Corpuscular Volume 91.0 fL Mean Corpuscular Hemoglobin 28.9 pg Mean Corpuscular Hemoglobin Concent 31.7 g/dl Platelet Count 321 K/uL Mean Platelet Volume 9.6 fL Neutrophils (%) (Auto) 69.2 % Lymphocytes (%) (Auto) 17.1 % Monocytes (%) (Auto) 12.7 % Eosinophils (%) (Auto) 0.4 % Basophils (%) (Auto) 0.2 % Neutrophils # (Auto) 7.82 K/uL Lymphocytes # (Auto) 1.93 K/uL Monocytes # (Auto) 1.44 K/uL Eosinophils # (Auto) 0.05 K/uL Basophils # (Auto) 0.02 K/uL RDW Standard Deviation 49.2 fL RDW Coefficient of Variation 14.7 % Immature Granulocyte % (Auto) 0.4 % Immature Granulocyte # (Auto) 0.04 K/uL Sodium Level 138 mmol/L Potassium Level 4.2 mmol/L Chloride Level 103 mmol/L Carbon Dioxide Level 28 mmol/L Anion Gap 7.0 mmol/L Blood Urea Nitrogen 13 mg/dl Creatinine 0.50 mg/dl Est Creatinine Clear Calc Drug Dose 128.7 ml/min Estimated GFR () 117.7 Estimated GFR (Non- 101.6 BUN/Creatinine Ratio 25.8 Random Glucose 153 mg/dl Calcium Level 8.9 mg/dl Test 10/08/16 06:33 Bedside Glucose 155 mg/dl Assessment and Plan 66 yo F with PMHX of CHF, CAD s/p RI in 2013, pacemaker insertion, DM II, Asthma , and s/p R TKA on 09/18 now admitted with septic joint replacement. Septic Joint - S/p R TKA on 09/[address] Mays admitted for Sepsis with infected right knee joint - underwent - irrigation and debridement and synovectomy and poly exchange tibial component placement antibiotic beads and closure over drains Blood culture preliminary reports are Staph species vancomycin and rifampin - Restart apixaban when cleared per ortho - Analgesia with oxycodone prn, tylenol, and try to avoid morphine unless for breakthrough/severe pain. DM II- Continue ISS with accu checks. CHF CAD s/p RI in 2013, s/p pacemaker placement - digoxin 0.125 daily, diltiazem 120 mg at bedtime, Lasix 40 mg by mouth twice a day, spironolactone 25 mg by mouth daily Asthma stable -Pro Air, nebulizer treatments QID and Q2H prn for shortness of breath DVT ppx: teds, scds, apixiban once surgery determines Disposition: From home, will need rehab Continued [facility] stay due to: inadequate oral pain control, ambulation difficulties, multiple IV medications needed Discharge planning: uncertain
[2016-10-08] MEDS: METHIMAZOLE 5 MG TAB PO SCH (10:00)
[2016-10-08] MEDS: MoRPHine SULFATE 2 MG/ML CARP IV PRN (10:01)
[2016-10-08] MEDS: INSULIN ASPART 100 UNITS/ML 3 ML PEN SC SCH ×4 (10:02→20:56)
--- NOTE | 2016-10-08 11:03 | Infectious Disease Progress Nt ---
Progress Note Date of Service October 08, 2016. Subjective Pt evaluation today including: conversation w/ patient, conversation w/ family , physical exam, chart review, lab review, review of studies, conversation w/ engineering consultant, review of inpatient medication list No new complaints. Expected postop pain. No fever. Tolerating Abx. All Other Systems: Reviewed and Negative Medications Current Inpatient Medications Medications (Trade) Dose Ordered Sig/Julianna Route Start Time Stop Time Status Last Admin Dose Admin Al Hydroxide/Mg Hydroxide (Maalox Susp) 30 ml Q6H PRN PO 10/05/16 17:00 11/04/16 16:59 Docusate Sodium (coLACE CAP) 100 mg BID PO 10/05/16 21:00 11/04/16 20:59 10/08/16 08:14 100 MG Pantoprazole Sodium (Protonix Tab) 40 mg QAM PO 10/06/16 09:00 11/05/16 08:59 10/08/16 08:13 40 MG Magnesium Hydroxide (Milk Of Magnesia Susp) 30 ml Q6H PRN PO 10/05/16 17:00 11/04/16 16:59 Oxycodone HCl (Roxicodone Immediate Rel Tab) `1-2 tabs for pain 1 tab ... Q4HWA PRN PO 10/05/16 17:00 10/19/16 16:59 10/08/16 05:47 10 MG Oxycodone HCl (Oxycontin Tab) 10 mg Q12H PO 10/05/16 17:00 10/19/16 16:59 10/08/16 08:13 10 MG Senna (Senokot Tab) 17.2 mg QAM PO 10/06/16 09:00 11/05/16 08:59 10/08/16 08:14 17.2 MG Acetaminophen (Tylenol Tab) 1,000 mg Q8 PRN PO 10/05/16 17:00 11/04/16 16:59 10/06/16 18:21 1,000 MG Carvedilol (Coreg Tab) 25 mg BID PO 10/05/16 21:00 11/04/16 20:59 10/08/16 08:13 25 MG Digoxin (Lanoxin Tab) 0.125 mg DAILY@1600 PO 10/05/16 16:00 11/04/16 15:59 10/07/16 17:03 0.125 MG Multivitamins (Multivitamin Tab) 1 tab QAM PO 10/06/16 09:00 11/05/16 08:59 10/08/16 08:14 1 TAB Niacin (Niacin Tab) 500 mg QAM PO 10/06/16 09:00 11/05/16 08:59 10/08/16 08:13 500 MG Albuterol Sulfate (Ventolin 0.083% 2.5MG/3ML Neb) 2.5 mg Q4H PRN INH 10/05/16 17:30 11/04/16 17:29 Albuterol (Proair Hfa) 2 puffs Q4 PRN INH 10/05/16 17:00 11/04/16 16:59 Miscellaneous Information (Consult Glycemic Management Pharmacy) 1 ea UD N/A 10/05/16 17:25 11/04/16 17:24 Insulin Aspart (novoLOG ASPART) SLIDING SCALE ACHS SC 10/05/16 21:00 11/04/16 20:59 10/08/16 10:02 5 UNITS Glucose (Glucose 40% Gel) 15-30 GRAMS 15 GRAMS... UD PRN PO 10/05/16 17:45 11/04/16 17:44 Glucose (Glucose Chew Tab) 4-8 Tablets 4 Tabl... UD PRN PO 10/05/16 17:45 11/04/16 17:44 Dextrose (Dextrose 50% 50ML Syringe) 25-50ML OF 50% DW IV FOR... UD PRN IV 10/05/16 17:45 11/04/16 17:44 Glucagon (Glucagon Inj) 1 mg UD PRN SQ 10/05/16 17:45 11/04/16 17:44 Morphine Sulfate (MoRPHine SULFATE INJ) 2 mg Q4HWA PRN IV 10/05/16 19:00 10/19/16 18:59 10/08/16 10:01 2 MG Morphine Sulfate (MoRPHine SULFATE INJ) 4 mg Q4HWA PRN IV 10/05/16 19:00 10/19/16 18:59 10/05/16 21:57 4 MG Morphine Sulfate (MoRPHine SULFATE INJ) 6 mg Q4HWA PRN IV 10/05/16 19:00 10/19/16 18:59 5/14/17 14:27 6 MG Vancomycin HCl (Consult) 1 ea UD PRN N/A 10/05/16 19:15 11/04/16 19:14 Rifampin 300 mg 300 mg BID PO 10/06/16 21:00 11/17/16 20:59 10/08/16 08:13 300 MG Vancomycin HCl/ Sodium Chloride (Vancomycin Inj/ Nss 250ml) 276 ml @ 125 mls/hr Q12H IV 10/07/16 16:00 11/17/16 23:59 10/08/16 04:26 125 MLS/HR Methimazole (Methimazole Tab) 10 mg DAILY PO 10/08/16 09:00 11/07/16 08:59 10/08/16 10:00 10 MG Insulin Glargine (Lantus Solostar Pen) 15 unit HS SC 10/08/16 16:45 11/07/16 16:44 Objective Vital Signs Date Time Temp Pulse Resp B/P Pulse Ox O2 Delivery O2 Flow Rate FiO2 10/08/16 08:28 37.0 75 20 106/64 97 Nasal Cannula 2.0 10/08/16 07:15 Nasal Cannula 3.0 10/08/16 04:00 36.6 111 18 128/64 97 Nasal Cannula 2.0 10/08/16 04:00 Nasal Cannula 3.0 10/07/16 23:59 Nasal Cannula 3.0 10/07/16 23:58 36.6 99 20 110/62 93 Nasal Cannula 2.0 10/07/16 20:00 Nasal Cannula 3.0 10/07/16 18:58 37.9 93 18 145/79 97 Nasal Cannula 3.0 10/07/16 17:03 98 10/07/16 16:00 Nasal Cannula 2.0 10/07/16 15:35 37.0 98 20 127/69 95 Nasal Cannula 3.0 10/07/16 12:04 37.2 88 18 120/74 97 Nasal Cannula 3.0 10/07/16 11:30 36.6 87 20 119/51 98 Nasal Cannula 2.0 10/07/16 11:25 98 Nasal Cannula 3.0 Physical Exam General Appearance: WD/WN, no apparent distress Eyes: normal inspection, EOMI, sclerae normal ENT: normal ENT inspection, pharynx normal Neck: supple, no adenopathy, thyroid normal, trachea midline Respiratory/Chest: chest non-tender, lungs clear, normal breath sounds, no respiratory distress Cardiovascular: regular rate, rhythm, no gallop, no murmur Abdomen: normal bowel sounds, non tender, soft, no organomegaly Extremities: non-tender, no calf tenderness, normal capillary refill Neurologic/Psychiatric: alert, oriented x 3 Skin: normal color, no rash, + pertinent finding (surgical dressing intact, drains in place) Lymphatic: no adenopathy Laboratory Results RUN DATE: 10/08/16 [facility] LAB PAGE 1 RUN TIME: 837 Specimen Inquiry PATIENT: MATTY HARVEY LOC: Lisa U # : [id number] AGE/SX: 66/F ROOM: [facility] REG : 10/05/[address]: Omer Fine M.D. : 1950 BED: 1 DIS : STATUS: ADM IN TLOC: SPEC #: [id number] GISEL: 10/05/16-1411 STATUS: COMP REQ #: [id number] RECD: 10/05/16-[address]: Ankit Rodriguez MD SOURCE: BLOOD ENTR: 10/05/16-[address] [facility] [address]: Elijah Weeks D.O. [facility]: No Doctor, Assigned ORDERED: BLOOD CULTURE Procedure Result Verified Site BLD CULT Final 10/08/16-0838 Organism 1 STAPHYLOCOCCUS AUREUS SENS SENSITIVITY TO FOLLOW Phoned Positive Blood Culture Gram Stain Report to ROSHAN ANTONY on 10/06/16 At 0835 By GERMÁN. Results were verbalized back to GERMÁN. 1. STAPHYLOCOCCUS AUREUS Target Route Dose RX AB Cost M.I.C. IQ ------ ----- ------ -- ------ -------- - ------ TRIMET/SULFA S <=0.5/ 9.5 * OXACILLIN S 0.5 VANCOMYCIN S 1 ERYTHROMYCIN R >4 TETRACYCLINE S <=4 CLINDAMYCIN R <=0.5 DAPTOMYCIN S <=0.5 S = SENSITIVE I = INTERMEDIATE R = RESISTANT Last 24 Hours Test 10/07/16 11:49 10/07/16 15:59 10/07/16 20:01 10/08/16 06:10 Bedside Glucose 166 mg/dl 203 mg/dl 155 mg/dl White Blood Count 11.30 K/uL Red Blood Count 3.22 M/uL Hemoglobin 9.3 g/dL Hematocrit 29.3 % Mean Corpuscular Volume 91.0 fL Mean Corpuscular Hemoglobin 28.9 pg Mean Corpuscular Hemoglobin Concent 31.7 g/dl Platelet Count 321 K/uL Mean Platelet Volume 9.6 fL Neutrophils (%) (Auto) 69.2 % Lymphocytes (%) (Auto) 17.1 % Monocytes (%) (Auto) 12.7 % Eosinophils (%) (Auto) 0.4 % Basophils (%) (Auto) 0.2 % Neutrophils # (Auto) 7.82 K/uL Lymphocytes # (Auto) 1.93 K/uL Monocytes # (Auto) 1.44 K/uL Eosinophils # (Auto) 0.05 K/uL Basophils # (Auto) 0.02 K/uL RDW Standard Deviation 49.2 fL RDW Coefficient of Variation 14.7 % Immature Granulocyte % (Auto) 0.4 % Immature Granulocyte # (Auto) 0.04 K/uL Sodium Level 138 mmol/L Potassium Level 4.2 mmol/L Chloride Level 103 mmol/L Carbon Dioxide Level 28 mmol/L Anion Gap 7.0 mmol/L Blood Urea Nitrogen 13 mg/dl Creatinine 0.50 mg/dl Est Creatinine Clear Calc Drug Dose 128.7 ml/min Estimated GFR () 117.7 Estimated GFR (Non- 101.6 BUN/Creatinine Ratio 25.8 Random Glucose 153 mg/dl Calcium Level 8.9 mg/dl Test 10/08/16 06:33 Bedside Glucose 155 mg/dl Assessment and Plan early infection of right TKA with Staph aureus (MSSA) with bacteremia, sensitivities are pending. Patient has been changed from vancomycin to cefazolin but final choice will depend on outpatient Abx coverage as will need 6 -8 weeks Rx. Continue rifampin. Will follow.
--- NOTE | 2016-10-08 11:09 | Pharmacy Progress Note ---
Glycemic Control: Progress Nt Date of Service October 08, 2016. Scope Glycemic Pharmacist consulted by Ian Alvarez on 10/05/16 for glycemic control and to write orders per [facility] inpatient glycemic control protocol. Objective Accuchecks BSG (last 24hrs): Test 10/07/16 11:49 10/07/16 15:59 10/07/16 20:01 10/08/16 06:10 Bedside Glucose 166 mg/dl (70-90) 203 mg/dl (70-90) 155 mg/dl (70-90) Random Glucose 153 mg/dl (70-99) Test 10/08/16 06:33 Bedside Glucose 155 mg/dl (70-90) Laboratory Data (last 24hrs) HbA1c: Test 10/06/16 06:07 Hemoglobin A1c 6.9 % (4.5-5.6) H Recent Pertinent Medications Outpatient Anti-diabetic Regimen: * Lantus 12 units SQ q HS * Glipizide 10 mg PO BID * Linagliptin 5 mg PO daily * Metformin 1000 mg PO BID * A1c = 6.9 % 09/2016 The patient is currently receiving: * Basal insulin: * Lantus 12 units SQ every 24 hours, in the evening * Bolus Insulin: * NovoLog SQ AC/HS - Goal Range: Low 100 mg/dL - High 140 mg/dL - Correction Factor: 20 mg/dL/unit - Carb ratio of 1 unit per 7 grams CHO consumed * Oral Agents: * held on admission Risk Factors for Insulin Resistance: * Infection * Diet * Recent Surgery Assessment & Plan ASSESSMENT: Initial: * 66 y/o T2D female who is admitted s/p TKA in August and now with infected Right Knee * BSG on admission WNL but trending upwards - most likely from missing PM doses of oral agents while getting admitted * home basal insulin continued, Bolus insulin with NovoLog started. NovoLog parameters based on weight/st =2 * home oral medications held * ADA & AACE recommend a goal blood sugar range 140-180 mg/dl for the majority of critically ill & non-critically ill patients. However, more stringent targets may be selected in individual cases. Will utilize more stringent goal of 100-140 mg/dl based on patient age & comorbidities. Additionally, tighter glycemic control is warranted to facilitate wound/infection healing. * A1c * appropriate outpatient control * add to discharge instructions 10/08/16: * Pt has received 18 units of insulin over the past 24 hrs * AM fasting BSG is elevated at 155mg/dl --> Goal AM fasting is below 140mg/ dl. Basal insulin needs increased. Pt is currently ordered her outpatient dosing of Lantus however, this will need stressed/increased with multiple oral agents on hold * BSGs trending upwards by dinner and HS --> bolus insulin parameters need tightened for better post-prandial control * Tight glycemic control is essential to facilitate wound healing and prevent further complications post-operatively. * Will continue to titrate insulin regimen to maintain BSGs < 140 mg/dl PLAN FOR INPATIENT GLYCEMIC CONTROL: * INCREASE Basal insulin: * Increase Lantus to 15 units SQ q HS - give first dose early with dinner this evening and then resume HS dosing 10/09/16 * TIGHTEN Bolus insulin: * NovoLog SQ AC and HS - CF: 15mg/dL/unit - CR: 1 unit per 6g of CHO consumed - Goal: 110-140mg/dL * Oral medications: * continue to hold until closer to discharge * Will reduce bolus insulin parameters and basal insulin dosing if/when oral agents resumed. RECOMMENDATIONS FOR DISCHARGE: * Likely, Ms Pierce can continue her home regimen at discharge as her A1c reflects good outpatient glycemic control. * Added A1c to discharge instructions to be communicated to PCP for further outpatient antidiabetic regimen adjustment if necessary * Please note that the plan above was derived based on current level of insulin resistance and hospital stress. These recommendations are appropriate for inpatient admission only. Plan of care upon discharge will need to be reassessed to avoid potential outpatient hypo/hyperglycemia. Thank you.
[2016-10-08 12:10] VITALS: BP 133/73; PULSE 91; TEMP 36.9; O2SAT 95
[2016-10-08] MEDS: CEFAZOLIN IV 2,000 MG in DEXTROSE 5% 50ML 50 ML IV SCH ×2 (12:15→19:20)
[2016-10-08] MEDS: ACETAMINOPHEN 500 MG TAB PO SCH ×2 (13:45→20:54)
--- NOTE | 2016-10-08 13:47 | DIAGNOSTIC IMAGING REPORT ---
CHEST ONE VIEW PORTABLE CLINICAL HISTORY: Right-sided PICC catheter placement COMPARISON STUDY: 08/31/2016 FINDINGS: There is a left subclavian dual-chamber central venous pacemaker present. The heart is normal in size. There is no failure. There is no focal pulmonary consolidation. Since the prior study, a right-sided PICC catheter has been placed. The tip appears to project over the superior vena cava. There is no pneumothorax.[ IMPRESSION: The recently placed right-sided PICC catheter appears positioned with its tip at the superior vena cava Electronically signed by: Jaison Gallo M.D. 10/08/2016 1:45 PM Dictated Date/Time: 10/08/2016 1:44 PM
--- NOTE | 2016-10-08 14:34 | Orthopedic Progress Note ---
Orthopedic Progress Note Date of Service October 08, 2016. Subjective Post OP Day: 1 Reports: feeling well, Denies: SOB, calf pain, chest pain, light headedness, nausea / vomiting Objective calves soft nontender, N/V intact, dressing C/D/I (PREVENA- ALARMING? ATTEMPTED TO RESET.), A&O x3, toes mobile, hemovac drainage (HEMOVAC#1- 50/55 PER SHIFT HEMOVAC #2- 155/20 PER SHIFT) Date Time Temp Pulse Resp B/P Pulse Ox O2 Delivery O2 Flow Rate FiO2 10/08/16 12:10 36.9 91 16 133/73 95 Nasal Cannula 2.0 10/08/16 08:28 37.0 75 20 106/64 97 Nasal Cannula 2.0 10/08/16 07:15 Nasal Cannula 3.0 10/08/16 04:00 36.6 111 18 128/64 97 Nasal Cannula 2.0 10/08/16 04:00 Nasal Cannula 3.0 10/07/16 23:59 Nasal Cannula 3.0 10/07/16 23:58 36.6 99 20 110/62 93 Nasal Cannula 2.0 10/07/16 20:00 Nasal Cannula 3.0 10/07/16 18:58 37.9 93 18 145/79 97 Nasal Cannula 3.0 10/07/16 17:03 98 10/07/16 16:00 Nasal Cannula 2.0 10/07/16 15:35 37.0 98 20 127/69 95 Nasal Cannula 3.0 Laboratory Results 24 Hours: Test 10/08/16 06:10 White Blood Count 11.30 K/uL Red Blood Count 3.22 M/uL Hemoglobin 9.3 g/dL Hematocrit 29.3 % Mean Corpuscular Volume 91.0 fL Mean Corpuscular Hemoglobin 28.9 pg Mean Corpuscular Hemoglobin Concent 31.7 g/dl Platelet Count 321 K/uL Mean Platelet Volume 9.6 fL Neutrophils (%) (Auto) 69.2 % Lymphocytes (%) (Auto) 17.1 % Monocytes (%) (Auto) 12.7 % Eosinophils (%) (Auto) 0.4 % Basophils (%) (Auto) 0.2 % Neutrophils # (Auto) 7.82 K/uL Lymphocytes # (Auto) 1.93 K/uL Monocytes # (Auto) 1.44 K/uL Eosinophils # (Auto) 0.05 K/uL Basophils # (Auto) 0.02 K/uL Assessment & Plan Assessment: POD#1 SP RIGHT I&D RIGHT TKA. Plan: PAIN MANAGEMENT- OXYCONTIN, ROXICODONE, TYLENOL DVT PROPHYLAXIS- ASA 81MG BID, TEDS, SCDS MEDICAL MANAGEMENT PT/OT- WBAT WITH WALKER DC PLANNING- PATIENT IS AGREEABLE TO [facility]. IV CEFAZOLIN X 6-[address] WORTHINGTON + PO RIFAMPIN PICC LINE PLACED DR. WORTHINGTON ON BOARD, APPRECIATE INPUT.
--- NOTE | 2016-10-08 15:26 | Medical Student: [facility] ---
Med Student Progress Note Date of Service October 08, 2016. Subjective Pt evaluation today including: conversation w/ patient, physical exam, chart review, lab review, review of studies Pain: reported 9/10, mildly relieved by oxycodone PO Intake: full diet, not eating much Voiding: montanez catheter in place no acute events overnight. patient reports feeling somewhat better today. she expresses concern over her memory and that she can't remember things that have happened over the past few days. she feels weak and does not have much of an appetite. she reports some lower abdominal pain, and has not had a bowel movement since her surgery. she is also complaining of seeing some yellow spots throughout her rasheed of vision this afternoon. no other symptoms to report. Review of Systems Constitutional: No chills, No fever, No sweats Eyes: + problem reported (yellow floaters) Respiratory: No cough, No shortness of breath, No sputum Cardiac: No chest pain, No orthopnea Abdomen: No nausea Musculoskeletal: + joint pain Female : No dysuria Neurologic: + memory loss Endo: + fatigue Objective Vital Signs Date Time Temp Pulse Resp B/P Pulse Ox O2 Delivery O2 Flow Rate FiO2 10/08/16 12:10 36.9 91 16 133/73 95 Nasal Cannula 2.0 10/08/16 08:28 37.0 75 20 106/64 97 Nasal Cannula 2.0 10/08/16 07:15 Nasal Cannula 3.0 10/08/16 04:00 36.6 111 18 128/64 97 Nasal Cannula 2.0 10/08/16 04:00 Nasal Cannula 3.0 10/07/16 23:59 Nasal Cannula 3.0 10/07/16 23:58 36.6 99 20 110/62 93 Nasal Cannula 2.0 10/07/16 20:00 Nasal Cannula 3.0 10/07/16 18:58 37.9 93 18 145/79 97 Nasal Cannula 3.0 10/07/16 17:03 98 10/07/16 16:00 Nasal Cannula 2.0 10/07/16 15:35 37.0 98 20 127/69 95 Nasal Cannula 3.0 Physical Exam General Appearance: WD/WN, + mild distress, + pertinent finding (ill-appearing) ENT: hearing grossly normal, pharynx normal Neck: supple, no adenopathy, no JVD, + thyroid abnormalities (mildly enlarged) Respiratory/Chest: chest non-tender, lungs clear, normal breath sounds Cardiovascular: regular rate, rhythm, no edema, no gallop, no murmur Abdomen: normal bowel sounds, soft, + tenderness (in lower abdomen) Extremities: non-tender, no pedal edema, + swelling (right lower extremity) Neurologic/Psychiatric: alert, + disoriented (oriented to person) Skin: no rash, + pallor Laboratory Results Last 24 Hours Test 10/07/16 15:59 10/07/16 20:01 10/08/16 06:10 10/08/16 06:33 Bedside Glucose 203 mg/dl 155 mg/dl 155 mg/dl White Blood Count 11.30 K/uL Red Blood Count 3.22 M/uL Hemoglobin 9.3 g/dL Hematocrit 29.3 % Mean Corpuscular Volume 91.0 fL Mean Corpuscular Hemoglobin 28.9 pg Mean Corpuscular Hemoglobin Concent 31.7 g/dl Platelet Count 321 K/uL Mean Platelet Volume 9.6 fL Neutrophils (%) (Auto) 69.2 % Lymphocytes (%) (Auto) 17.1 % Monocytes (%) (Auto) 12.7 % Eosinophils (%) (Auto) 0.4 % Basophils (%) (Auto) 0.2 % Neutrophils # (Auto) 7.82 K/uL Lymphocytes # (Auto) 1.93 K/uL Monocytes # (Auto) 1.44 K/uL Eosinophils # (Auto) 0.05 K/uL Basophils # (Auto) 0.02 K/uL RDW Standard Deviation 49.2 fL RDW Coefficient of Variation 14.7 % Immature Granulocyte % (Auto) 0.4 % Immature Granulocyte # (Auto) 0.04 K/uL Sodium Level 138 mmol/L Potassium Level 4.2 mmol/L Chloride Level 103 mmol/L Carbon Dioxide Level 28 mmol/L Anion Gap 7.0 mmol/L Blood Urea Nitrogen 13 mg/dl Creatinine 0.50 mg/dl Est Creatinine Clear Calc Drug Dose 128.7 ml/min Estimated GFR () 117.7 Estimated GFR (Non- 101.6 BUN/Creatinine Ratio 25.8 Random Glucose 153 mg/dl Calcium Level 8.9 mg/dl Test 10/08/16 10:42 Bedside Glucose 203 mg/dl Medications Current Inpatient Medications Medications (Trade) Dose Ordered Sig/Julianna Route Start Time Stop Time Status Last Admin Dose Admin Al Hydroxide/Mg Hydroxide (Maalox Susp) 30 ml Q6H PRN PO 10/05/16 17:00 11/04/16 16:59 Docusate Sodium (coLACE CAP) 100 mg BID PO 10/05/16 21:00 11/04/16 20:59 10/08/16 08:14 100 MG Pantoprazole Sodium (Protonix Tab) 40 mg QAM PO 10/06/16 09:00 11/05/16 08:59 10/08/16 08:13 40 MG Magnesium Hydroxide (Milk Of Magnesia Susp) 30 ml Q6H PRN PO 10/05/16 17:00 11/04/16 16:59 Oxycodone HCl (Roxicodone Immediate Rel Tab) `1-2 tabs for pain 1 tab ... Q4HWA PRN PO 10/05/16 17:00 10/19/16 16:59 10/08/16 12:15 10 MG Oxycodone HCl (Oxycontin Tab) 10 mg Q12H PO 10/05/16 17:00 10/19/16 16:59 10/08/16 08:13 10 MG Senna (Senokot Tab) 17.2 mg QAM PO 10/06/16 09:00 11/05/16 08:59 10/08/16 08:14 17.2 MG Acetaminophen (Tylenol Tab) 1,000 mg Q8 PRN PO 10/05/16 17:00 11/04/16 16:59 10/06/16 18:21 1,000 MG Carvedilol (Coreg Tab) 25 mg BID PO 10/05/16 21:00 11/04/16 20:59 10/08/16 08:13 25 MG Digoxin (Lanoxin Tab) 0.125 mg DAILY@1600 PO 10/05/16 16:00 11/04/16 15:59 10/07/16 17:03 0.125 MG Multivitamins (Multivitamin Tab) 1 tab QAM PO 10/06/16 09:00 11/05/16 08:59 10/08/16 08:14 1 TAB Niacin (Niacin Tab) 500 mg QAM PO 10/06/16 09:00 11/05/16 08:59 10/08/16 08:13 500 MG Albuterol Sulfate (Ventolin 0.083% 2.5MG/3ML Neb) 2.5 mg Q4H PRN INH 10/05/16 17:30 11/04/16 17:29 Albuterol (Proair Hfa) 2 puffs Q4 PRN INH 10/05/16 17:00 11/04/16 16:59 Miscellaneous Information (Consult Glycemic Management Pharmacy) 1 ea UD N/A 10/05/16 17:25 11/04/16 17:24 Insulin Aspart (novoLOG ASPART) SLIDING SCALE ACHS SC 10/05/16 21:00 11/04/16 20:59 10/08/16 13:44 11 UNITS Glucose (Glucose 40% Gel) 15-30 GRAMS 15 GRAMS... UD PRN PO 10/05/16 17:45 11/04/16 17:44 Glucose (Glucose Chew Tab) 4-8 Tablets 4 Tabl... UD PRN PO 10/05/16 17:45 11/04/16 17:44 Dextrose (Dextrose 50% 50ML Syringe) 25-50ML OF 50% DW IV FOR... UD PRN IV 10/05/16 17:45 11/04/16 17:44 Glucagon (Glucagon Inj) 1 mg UD PRN SQ 10/05/16 17:45 11/04/16 17:44 Morphine Sulfate (MoRPHine SULFATE INJ) 2 mg Q4HWA PRN IV 10/05/16 19:00 10/19/16 18:59 10/08/16 10:01 2 MG Morphine Sulfate (MoRPHine SULFATE INJ) 4 mg Q4HWA PRN IV 10/05/16 19:00 10/19/16 18:59 10/05/16 21:57 4 MG Morphine Sulfate (MoRPHine SULFATE INJ) 6 mg Q4HWA PRN IV 10/05/16 19:00 10/19/16 18:59 10/07/16 14:27 6 MG Rifampin (Rifadin Cap) 300 mg BID PO 10/06/16 21:00 11/17/16 20:59 10/08/16 08:13 300 MG Methimazole (Methimazole Tab) 10 mg DAILY PO 10/08/16 09:00 11/07/16 08:59 10/08/16 10:00 10 MG Insulin Glargine 15 unit 15 unit HS SC 10/08/16 16:45 11/07/16 16:44 Cefazolin Sodium/ Dextrose (Ancef Iv/D5 50ml) 60 ml @ 100 mls/hr Q8H IV 10/08/16 12:00 11/19/16 11:59 10/08/16 12:15 100 MLS/HR Acetaminophen (Tylenol Tab) 1,000 mg TID PO 10/08/16 14:00 11/07/16 13:59 10/08/16 13:45 1,000 MG Aspirin (Ecotrin Tab) 81 mg BID PO 10/08/16 21:00 11/07/16 20:59 Assessment and Plan Assessment and Plan: This is a 66 yo female who presented with a septic joint following TKA several weeks ago. Septic joint: -Surgical removal and replacement with debridement and antibiotic bead placement this morning went well -D/c vancomycin and begin cefazolin 2 g q8hrs -Continue rifampin 300 mg po bid -PICC line placed for outpatient abx -Will need 6-8 weeks of IV abx per ortho -Blood and joint aspirate cultures grew out MSSA, second round pending -Echocardiography showed no evidence of vegetations Congestive heart failure: -Fluid status improved at this time -Continue to monitor for signs of fluid overload -If begins to have more symptoms, may start furosemide 40 mg po daily and increase to home dose 40 mg po bid if needed Hyperthyroid: -TSH depressed, elevated free T4 -US showed heterogeneous enlargement with an uncomplicated cyst. no need for biopsy at this time -Started methimazole. Recheck TSH in 4-6 weeks Asthma: -Continue current asthma regimen Diabetes: -Continue current diabetes control DVT prophylaxis: -On 81 mg ASA per ortho recs -SCDs and PARAMJIT stockings -Defer to ortho for resuming apixaban home dose. Continued [facility] stay due to: inadequate oral pain control, ambulation difficulties, multiple IV medications needed Discharge planning: rehab hospital
[2016-10-08 15:42] VITALS: BP 118/77; PULSE 102; TEMP 36.8; O2SAT 98
[2016-10-08] MEDS: DIGOXIN 0.125 MG TAB PO SCH (17:20)
[2016-10-08] MEDS: INSULIN GLARGINE SOLOSTAR 100 UNITS/ML 3 ML PEN SC SCH (17:25)
[2016-10-08 19:33] VITALS: BP 115/64; PULSE 95; TEMP 36.9; O2SAT 97
[2016-10-08] MEDS: ASPIRIN 81 MG ECTAB PO SCH (20:54)
[2016-10-09] VITALS (8 sets, daily range): BP systolic 102–146; BP diastolic 57–76; PULSE 76–94; TEMP 36.5–37.3; O2SAT 96–99
[2016-10-09] MEDS: OXYCODONE HCL IR 5 MG TAB (IMMEDIATE RELEASE) PO PRN ×5 (02:59→22:05)
[2016-10-09] MEDS: CEFAZOLIN IV 2,000 MG in DEXTROSE 5% 50ML 50 ML IV SCH ×3 (03:01→19:41)
[2016-10-09] MEDS: INSULIN ASPART 100 UNITS/ML 3 ML PEN SC SCH ×5 (07:00→20:56)
[2016-10-09] MEDS: METHIMAZOLE 5 MG TAB PO SCH (07:38)
[2016-10-09] MEDS: DOCUSATE SODIUM 100 MG CAP PO SCH ×2 (07:38→20:49)
[2016-10-09] MEDS: ASPIRIN 81 MG ECTAB PO SCH ×2 (07:38→20:49)
[2016-10-09] MEDS: NIACIN 500 MG TAB IMMEDIATE RELEASE PO SCH (07:38)
[2016-10-09] MEDS: ACETAMINOPHEN 500 MG TAB PO SCH ×3 (07:38→20:50)
[2016-10-09] MEDS: PANTOprazole SOD 40 MG TAB PO SCH (07:39)
[2016-10-09] MEDS: CARVEDILOL 25 MG TAB PO SCH ×2 (07:39→20:49)
[2016-10-09] MEDS: RIFAMPIN 300 MG CAP PO SCH ×2 (07:39→20:49)
[2016-10-09] MEDS: MULTIVITAMIN TAB PO SCH (07:39)
[2016-10-09] MEDS: SENNA 8.6 MG TAB PO SCH (07:39)
[2016-10-09] MEDS: OXYCODONE HCL 10 MG TABCR (OXYCONTIN) PO SCH ×2 (07:42→20:49)
--- NOTE | 2016-10-09 08:08 | Discharge Instructions ---
Discharge Instructions Date of Service October 09, 2016. Admission Reason for Admission: Infection Of Total Right Knee Replacement Discharge Discharge Diagnosis / Problem: SP RIGHT TKA I&D/POLY EXCHANGE Discharge Goals Goal(s): Decrease discomfort, Improve function, Increase independence Activity Recommendations Activity Level: Assistance Required Therapies: Weight Bearing Status (WBAT WITH WALKER AND IMMOBLIZER) . Additional Information Patient informed of condition: Yes Advance Directives: Yes DNR: No Level of Care: Acute Rehab Communicable Disease: No Prognosis: Stable Instructions / Follow-Up Instructions / Follow-Up ACTIVITY RECOMMENDATIONS: SELF CARE INSTRUCTIONS AFTER TOTAL KNEE REPLACEMENT A. WEAR KNEE IMMOBILIZER WHEN AMBULATORY. MAY REMOVE IN BED. NO ROM EXERCISES FOR A FEW WEEKS. B. You may progress at your own pace from walking with a walker or crutches to a cane; then to no assistive devices. C. Make walking a part of your daily routine. Be up as much as comfortable with rest periods throughout the day. Rest with leg elevation is very important. Use the ice wrap frequently for the first 3-4 weeks. D. There are no restrictions on activities. You may ride in a car, shop, participate in web marketing intern and all social activities. E. Wear the long elastic stockings (PARAMJIT hose) 20 hours a day for 2 weeks after surgery. They can be removed several times a day for laundering and for a bath. F. You may shower, no tub baths until cleared by your doctor. SPECIAL CARE INSTRUCTIONS: VERY IMPORTANT TO READ AND REVIEW A. There are a few signs you need to watch for after you are home. Call [facility] if you notice any of the followin. Increased severe knee pain. Some pain is expected especially when you exercise. 2. Increased swelling in your leg or knee; pain or swelling of the calf muscle in either lower leg. 3. Any fluid drainage from the incision. 4. Shortness of breath or chest pain. B. Please call [facility] at if you have any concerns or questions about your operation or recovery. The doctor or his nurse will return your call promptly. C. You must take antibiotics before dental work, bladder, bowel or other surgery. Your doctor will provide you with a permanent care to carry describing this precaution. IMPORTANT: * REMEMBER TO TAKE ASPIRIN, 81 MG, TWICE DAILY FOR 4 WEEKS UNLESS OTHERWISE DIRECTED. THIS IS YOUR BLOOD THINNER. * HIGH RISK PATIENTS MAY BE PRESCRIBED A STRONGER BLOOD THINNER. THIS WILL BE PROVIDED AT DISCHARGE. * CALL IF INCREASED PAIN, REDNESS, DRAINAGE OR FEVER GREATER THAT 101. * WEAR PARAMJIT HOSE 20 HOURS PER DAY FOR 2 WEEKS. Prevena- This is a large suction dressing covering your incision. This will help pull any excess drainage from the wound and allow your incision to heal properly. You may shower with this if you can keep the unit outside of the shower. If any bleeding or leakage is noted please call your doctor's office. This will remain on your incision for 7 days and then should be removed. This can be done yourself or by the home nursing staff if applicable. The entire unit is disposable once removed. Once removed, keep incision clean and dry. If redness or drainage is noted, please call your surgeon. FOLLOW UP VISIT: If appointment is not already scheduled: Please call [facility] to make a follow-up appointment for 2 weeks after your surgery at . Current Hospital Diet Patient's current hospital diet: Diabetes Type 2 Diet Discharge Diet Recommended Diet: Regular Diet Procedures Procedures Performed: Incision and drainage of right knee with polyexchange Pending Studies Studies pending at discharge: no Laboratory Results Hemoglobin A1c Test 10/06/16 06:07 Range/Units Estimated Average Glucose 151 mg/dl Hemoglobin A1c 6.9 H 4.5-5.6 % Medical Emergencies . Who to Call and When: Medical Emergencies: If at any time you feel your situation is an emergency, please call 911 immediately. . Non-Emergent Contact Non-Emergency issues call your: Surgeon . . "Provider Documentation" section prepared by Tiff Kapoor. . Scrap Preparation Supervisor Recommendations Scrap Preparation Supervisor Recommendations: Methimazole is new, recommended follow up of thyroid axis and adjustment Core Measure Problem Core Measures: None [place] Drug Monitoring Program Search Results: patient reviewed within database, no issues identified
[2016-10-09] MEDS ORDERED: KFZAV1 IV (08:13)
[2016-10-09] MEDS ORDERED: RFM300 PO (08:13)
[2016-10-09] MEDS ORDERED: MORP-157 PO (08:13)
[2016-10-09] MEDS ORDERED: CLB/200 PO (08:13)
[2016-10-09] MEDS ORDERED: OXYC1TAB3 PO (08:13)
[2016-10-09] MEDS ORDERED: ACET-1256 PO (08:13)
--- NOTE | 2016-10-09 08:27 | PROGRESS NOTE ---
DATE: 10/09/2016 Post op day 2 status post I\T\D of the knee pain. SUBJECTIVE: The patient is in bed complaining of some discomfort, but denies any chest pain, shortness of breath or lightheadedness. She actually seems more alert and oriented today. OBJECTIVE: Dressings are intact still. Toes are swollen, but mobile. Neurovascular function is intact. HEMOVAC DRAINAGE: Hemovac #1 25 mL last 8 hours. Hemovac #2 0 mL last 8 hours. LABORATORY VALUES: From yesterday anemia. Hemoglobin 9.3, but stable. Blood sugars are still running 180 to 150. MICROBIOLOGY: Staph aureus sensitive to oxacillin, resistant to clindamycin and erythromycin. IMPRESSION: Acute postoperative infection, right total knee, status post irrigation, debridement, synovectomy and antibiotic beads. PLAN: The patient will need 6 weeks antibiotics per ID, currently on cefazolin and rifampin pending antibiotic coverage. We will provide a knee immobilizer. Recommend no physical therapy for range of motion. Immobilizer may be off in bed for rest, but should be worn when out of bed to allow the knee some time to heal. Again, range of motion physical therapy is NOT necessary. Placement on antibiotics per infectious disease and anticipate transfer to an extended care facility and/or rehabilitation facility for further convalescence.
[2016-10-09] MEDS ORDERED: METFORMIN HCL 500 MG TAB PO ONE (08:45)
--- NOTE | 2016-10-09 10:19 | Infectious Disease Progress Nt ---
Progress Note Date of Service October 09, 2016. Subjective Pt evaluation today including: conversation w/ patient, conversation w/ family , physical exam, chart review, lab review, review of studies, conversation w/ call center support consultant, review of inpatient medication list Still with severe pain in right knee. remains afebrile. Tolerating Abx. No other new complaints. All Other Systems: Reviewed and Negative Medications Current Inpatient Medications Medications (Trade) Dose Ordered Sig/Julianna Route Start Time Stop Time Status Last Admin Dose Admin Al Hydroxide/Mg Hydroxide (Maalox Susp) 30 ml Q6H PRN PO 10/05/16 17:00 11/04/16 16:59 Docusate Sodium (coLACE CAP) 100 mg BID PO 10/05/16 21:00 11/04/16 20:59 10/09/16 07:38 100 MG Pantoprazole Sodium (Protonix Tab) 40 mg QAM PO 10/06/16 09:00 11/05/16 08:59 10/09/16 07:39 40 MG Magnesium Hydroxide (Milk Of Magnesia Susp) 30 ml Q6H PRN PO 10/05/16 17:00 11/04/16 16:59 Oxycodone HCl (Roxicodone Immediate Rel Tab) `1-2 tabs for pain 1 tab ... Q4HWA PRN PO 10/05/16 17:00 10/19/16 16:59 10/09/16 07:42 5 MG Oxycodone HCl (Oxycontin Tab) 10 mg Q12H PO 10/05/16 17:00 10/19/16 16:59 10/09/16 07:42 10 MG Senna (Senokot Tab) 17.2 mg QAM PO 10/06/16 09:00 11/05/16 08:59 10/09/16 07:39 17.2 MG Acetaminophen (Tylenol Tab) 1,000 mg Q8 PRN PO 10/05/16 17:00 11/04/16 16:59 10/06/16 18:21 1,000 MG Carvedilol (Coreg Tab) 25 mg BID PO 10/05/16 21:00 11/04/16 20:59 10/09/16 07:39 25 MG Digoxin (Lanoxin Tab) 0.125 mg DAILY@1600 PO 10/05/16 16:00 11/04/16 15:59 10/08/16 17:20 0.125 MG Multivitamins (Multivitamin Tab) 1 tab QAM PO 10/06/16 09:00 11/05/16 08:59 10/09/16 07:39 1 TAB Niacin (Niacin Tab) 500 mg QAM PO 10/06/16 09:00 11/05/16 08:59 10/09/16 07:38 500 MG Albuterol Sulfate (Ventolin 0.083% 2.5MG/3ML Neb) 2.5 mg Q4H PRN INH 10/05/16 17:30 11/04/16 17:29 Albuterol (Proair Hfa) 2 puffs Q4 PRN INH 10/05/16 17:00 11/04/16 16:59 Miscellaneous Information (Consult Glycemic Management Pharmacy) 1 ea UD N/A 10/05/16 17:25 11/04/16 17:24 Insulin Aspart (novoLOG ASPART) SLIDING SCALE ACHS SC 10/05/16 21:00 11/04/16 20:59 10/08/16 20:56 3 UNITS Glucose (Glucose 40% Gel) 15-30 GRAMS 15 GRAMS... UD PRN PO 10/05/16 17:45 11/04/16 17:44 Glucose (Glucose Chew Tab) 4-8 Tablets 4 Tabl... UD PRN PO 10/05/16 17:45 11/04/16 17:44 Dextrose (Dextrose 50% 50ML Syringe) 25-50ML OF 50% DW IV FOR... UD PRN IV 10/05/16 17:45 11/04/16 17:44 Glucagon (Glucagon Inj) 1 mg UD PRN SQ 10/05/16 17:45 11/04/16 17:44 Morphine Sulfate (MoRPHine SULFATE INJ) 2 mg Q4HWA PRN IV 10/05/16 19:00 10/19/16 18:59 10/08/16 10:01 2 MG Morphine Sulfate (MoRPHine SULFATE INJ) 4 mg Q4HWA PRN IV 10/05/16 19:00 10/19/16 18:59 10/05/16 21:57 4 MG Morphine Sulfate (MoRPHine SULFATE INJ) 6 mg Q4HWA PRN IV 10/05/16 19:00 10/19/16 18:59 10/07/16 14:27 6 MG Rifampin (Rifadin Cap) 300 mg BID PO 10/06/16 21:00 11/17/16 20:59 10/09/16 07:39 300 MG Methimazole (Methimazole Tab) 10 mg DAILY PO 10/08/16 09:00 11/07/16 08:59 10/09/16 07:38 10 MG Insulin Glargine 15 unit 15 unit HS SC 10/08/16 16:45 11/07/16 16:44 10/08/16 17:25 15 UNIT Cefazolin Sodium/ Dextrose (Ancef Iv/D5 50ml) 60 ml @ 100 mls/hr Q8H IV 10/08/16 12:00 11/19/16 11:59 10/09/16 03:01 100 MLS/HR Acetaminophen (Tylenol Tab) 1,000 mg TID PO 10/08/16 14:00 11/07/16 13:59 10/09/16 07:38 1,000 MG Aspirin (Ecotrin Tab) 81 mg BID PO 10/08/16 21:00 11/07/16 20:59 10/09/16 07:38 81 MG Metformin HCl (Glucophage Tab) 1,000 mg BIDM PO 10/09/16 16:45 11/08/16 16:44 Objective Vital Signs Date Time Temp Pulse Resp B/P Pulse Ox O2 Delivery O2 Flow Rate FiO2 10/09/16 08:05 Nasal Cannula 3.0 10/09/16 07:41 37.3 88 16 146/70 97 2.0 10/09/16 04:00 36.6 94 18 146/63 96 Nasal Cannula 2.0 10/09/16 04:00 Nasal Cannula 3.0 10/09/16 00:00 36.8 92 18 125/62 97 Nasal Cannula 2.0 10/09/16 00:00 Nasal Cannula 3.0 10/08/16 20:00 Nasal Cannula 3.0 10/08/16 19:33 36.9 95 18 115/64 97 Nasal Cannula 2.0 10/08/16 17:20 94 10/08/16 16:00 Nasal Cannula 3.0 10/08/16 15:42 36.8 102 18 118/77 98 Nasal Cannula 2.0 10/08/16 12:10 36.9 91 16 133/73 95 Nasal Cannula 2.0 10/08/16 12:00 Nasal Cannula 3.0 Physical Exam General Appearance: WD/WN, no apparent distress Eyes: normal inspection, EOMI, sclerae normal ENT: normal ENT inspection, pharynx normal Neck: supple, no adenopathy, trachea midline Respiratory/Chest: lungs clear, normal breath sounds, no respiratory distress Cardiovascular: regular rate, rhythm, no gallop, no murmur Abdomen: normal bowel sounds, non tender, soft, no organomegaly Extremities: no calf tenderness, normal capillary refill Neurologic/Psychiatric: alert, oriented x 3 Skin: normal color, no rash, + pertinent finding (right knee dressing intact) Lymphatic: no adenopathy Laboratory Results RUN DATE: 10/09/16 [facility] LAB PAGE 1 RUN TIME: 958 Specimen Inquiry PATIENT: MATTY HARVEY LOC: [id number] # : [id number] AGE/SX: 66/F ROOM: [facility] REG : 10/05/[address]: Omer Fine M.D. : 1950 BED: 1 DIS : STATUS: ADM IN TLOC: SPEC #: [id number] GISEL: 10/05/16-1651 STATUS: RES REQ #: [id number] RECD: [address]: Ian Alvarez P.AAndrzej SOURCE: [facility] ENTR: 10/05/[address] [facility] [address]: Wyatt Vela MD [facility]: KNEE RIGHT Anthony Bonilla M.D. Maciejczyk, John F., MD McLucas, Patrick B. D.O. ORDERED: AER/WYATT CULTSMR COMMENTS: Has Specimen Been Obtained/Collected? Y Procedure Result Verified Site GRAM STAIN Final 10/06/16-718 RESULT MANY WBCs SEEN MANY GRAM POSITIVE COCCI Phoned results to ROSHAN ANTONY on 10/06/16 at 0718 by Anay Hollis. Results were verbalized back to GERMÁN. OR AER/WYATT CULT Preliminary 10/09/16 Organism 1 STAPHYLOCOCCUS AUREUS QUANITY MANY SENS SENSITIVITY TO FOLLOW ANAS NO ANAEROBES ISOLATED. 1. STAPHYLOCOCCUS AUREUS Target Route Dose RX AB Cost M.I.C. IQ ------ ----- ------ -- ------ -------- - ------ TRIMET/SULFA S <=0.5/ 9.5 * OXACILLIN S <=0.25 VANCOMYCIN S 2 ERYTHROMYCIN R >4 TETRACYCLINE S <=4 CLINDAMYCIN R <=0.5 DAPTOMYCIN S <=0.5 S = SENSITIVE I = INTERMEDIATE R = RESISTANT END OF REPORT Last 24 Hours Test 10/08/16 10:42 10/08/16 16:34 10/08/16 20:39 10/09/16 06:29 Bedside Glucose 203 mg/dl 247 mg/dl 189 mg/dl 157 mg/dl [~ rep ct add3]] CHEST ONE VIEW PORTABLE CLINICAL HISTORY: Right-sided PICC catheter placement COMPARISON STUDY: 08/31/2016 FINDINGS: There is a left subclavian dual-chamber central venous pacemaker present. The heart is normal in size. There is no failure. There is no focal pulmonary consolidation. Since the prior study, a right-sided PICC catheter has been placed. The tip appears to project over the superior vena cava. There is no pneumothorax.[ IMPRESSION: The recently placed right-sided PICC catheter appears positioned with its tip at the superior vena cava Electronically signed by: Jaison Gallo M.D. 10/08/2016 1:45 PM Dictated Date/Time: 10/08/2016 1:44 PM The status of this report is Signed. Draft = Not yet reviewed or approved by Radiologist. Signed = Reviewed and approved by Radiologist. <AttendingPhy>Omer Fine M.D.</AttendingPhy> <FamilyPhy>Aliya Weeks Assessment and Plan early infection of right TKA with Staph aureus (MSSA) with bacteremia, Treatment with cefazolin and rifampin appropriate as long as patient going to rehab where IV Rx can be given. Will discuss and follow.
[2016-10-09] MEDS: MoRPHine SULFATE 2 MG/ML CARP IV PRN ×3 (12:30→19:57)
[2016-10-09] MEDS: CeleBREX 100 MG CAP PO SCH ×2 (12:49→20:49)
--- NOTE | 2016-10-09 13:35 | Pharmacy Progress Note ---
Glycemic Control: Progress Nt Date of Service October 09, 2016. Scope Glycemic Pharmacist consulted by for glycemic control and to write orders per [facility] inpatient glycemic control protocol. Objective Accuchecks BSG (last 24hrs): Test 10/08/16 16:34 10/08/16 20:39 10/09/16 06:29 Bedside Glucose 247 mg/dl (70-90) 189 mg/dl (70-90) 157 mg/dl (70-90) HbA1c: Test 10/06/16 06:07 Hemoglobin A1c 6.9 % (4.5-5.6) H Recent Pertinent Medications Outpatient Anti-diabetic Regimen: * Lantus 12 units SQ q HS * Glipizide 10 mg PO BID * Linagliptin 5 mg PO daily * Metformin 1000 mg PO BID * A1c = 6.9 % 09/2016 The patient is currently receiving: * Basal insulin: * Lantus 15 units SQ every 24 hours, in the evening * Bolus Insulin: * NovoLog SQ AC/HS - Goal Range: Low 100 mg/dL - High 140 mg/dL - Correction Factor: 15 mg/dL/unit - Carb ratio of 1 unit per 6 grams CHO consumed * Oral Agents: * held on admission Risk Factors for Insulin Resistance: * Infection * Diet * Recent Surgery Assessment & Plan ASSESSMENT: Initial: * 66 y/o T2D female who is admitted s/p TKA in August and now with infected Right Knee * BSG on admission WNL but trending upwards - most likely from missing PM doses of oral agents while getting admitted * home basal insulin continued, Bolus insulin with NovoLog started. NovoLog parameters based on weight/st =2 * home oral medications held * ADA & AACE recommend a goal blood sugar range 140-180 mg/dl for the majority of critically ill & non-critically ill patients. However, more stringent targets may be selected in individual cases. Will utilize more stringent goal of 100-140 mg/dl based on patient age & comorbidities. Additionally, tighter glycemic control is warranted to facilitate wound/infection healing. * A1c * appropriate outpatient control * add to discharge instructions 10/09/16: * Pt has received 42 units of insulin over the past 24 hrs * AM fasting BSG is elevated at 157mg/dl --> Goal AM fasting is below 140mg/ dl. Basal insulin increased yesterday as multiple oral antidiabetic agents on hold. * BSGs trending upwards by dinner and HS --> bolus insulin parameters need tightened for better post-prandial control * Discharge planning is in process, will start planning for discharge and resume metformin, no changes to basal or prandial insulin as oral agents resuming * Tight glycemic control is essential to facilitate wound healing and prevent further complications post-operatively. * Will continue to titrate insulin regimen to maintain BSGs < 140 mg/dl PLAN FOR INPATIENT GLYCEMIC CONTROL: * Basal insulin: * Continue Lantus 15 units SQ q HS * LOOSEN Bolus insulin as oral agents resuming * NovoLog SQ AC and HS - CF: 20mg/dL/unit - CR: 1 unit per 7g of CHO consumed - Goal: 110-140mg/dL * Oral medications: * Resume Metformin 1,000mg PO BIDM. * May resume glipizide after discharge - sulfonylureas not recommended for admission d/t hypo risk * May resume linagliptin after discharge - this is a not stocked/non-formulary medication * Will reduce bolus insulin parameters and basal insulin dosing if/when oral agents resumed. RECOMMENDATIONS FOR DISCHARGE: * Likely, Ms Pierce can continue her home regimen at discharge as her A1c reflects good outpatient glycemic control. * Added A1c to discharge instructions to be communicated to PCP for further outpatient antidiabetic regimen adjustment if necessary * Please note that the plan above was derived based on current level of insulin resistance and hospital stress. These recommendations are appropriate for inpatient admission only. Plan of care upon discharge will need to be reassessed to avoid potential outpatient hypo/hyperglycemia. Thank you.
[2016-10-09] MEDS: DIGOXIN 0.125 MG TAB PO SCH (15:28)
--- NOTE | 2016-10-09 15:49 | Medical Student: [facility] ---
Med Student Progress Note Date of Service October 09, 2016. Subjective Pt evaluation today including: conversation w/ patient, physical exam, chart review, lab review, review of studies Pain: 7/10 partly relieved by pain meds PO Intake: full diet Voiding: montanez catheter in place patient reports feeling better today than yesterday. she is still having significant pain in her operative right leg but says that it is less than before and she is able to move her feet and toes well. she also says that her abdominal pain is resolved today, follow having three bowel movements. no new symptoms to report. Review of Systems Constitutional: No chills, No fever, No sweats Eyes: + problem reported (seeing spots) Respiratory: No cough, No shortness of breath, No sputum, No wheezing Cardiac: No chest pain, No orthopnea Abdomen: No diarrhea, No nausea, No pain, No vomiting Objective Vital Signs Date Time Temp Pulse Resp B/P Pulse Ox O2 Delivery O2 Flow Rate FiO2 10/09/16 15:28 68 10/09/16 15:04 36.7 80 20 102/71 98 Nasal Cannula 3.0 10/09/16 11:10 36.5 85 16 104/69 99 Nasal Cannula 3.0 10/09/16 11:00 Nasal Cannula 3.0 10/09/16 10:43 37.3 88 16 97 3.0 10/09/16 08:05 Nasal Cannula 3.0 10/09/16 07:41 37.3 88 16 146/70 97 2.0 10/09/16 04:00 36.6 94 18 146/63 96 Nasal Cannula 2.0 10/09/16 04:00 Nasal Cannula 3.0 10/09/16 00:00 36.8 92 18 125/62 97 Nasal Cannula 2.0 10/09/16 00:00 Nasal Cannula 3.0 10/08/16 20:00 Nasal Cannula 3.0 10/08/16 19:33 36.9 95 18 115/64 97 Nasal Cannula 2.0 10/08/16 17:20 94 10/08/16 16:00 Nasal Cannula 3.0 10/08/16 15:42 36.8 102 18 118/77 98 Nasal Cannula 2.0 Physical Exam General Appearance: no apparent distress, + pertinent finding (ill-appearing) ENT: hearing grossly normal, pharynx normal Neck: supple, no JVD Respiratory/Chest: chest non-tender, normal breath sounds, + wheezing ( scattered wheezes) Cardiovascular: regular rate, rhythm, no edema, no gallop, no murmur, + normal peripheral pulses Abdomen: normal bowel sounds, non tender, soft Extremities: non-tender Neurologic/Psychiatric: alert, oriented x 3 Skin: no rash Laboratory Results Last 24 Hours Test 10/08/16 16:34 10/08/16 20:39 10/09/16 06:29 Bedside Glucose 247 mg/dl 189 mg/dl 157 mg/dl Medications Current Inpatient Medications Medications (Trade) Dose Ordered Sig/Julianna Route Start Time Stop Time Status Last Admin Dose Admin Al Hydroxide/Mg Hydroxide (Maalox Susp) 30 ml Q6H PRN PO 10/05/16 17:00 11/04/16 16:59 Docusate Sodium (coLACE CAP) 100 mg BID PO 10/05/16 21:00 11/04/16 20:59 10/09/16 07:38 100 MG Pantoprazole Sodium (Protonix Tab) 40 mg QAM PO 10/06/16 09:00 11/05/16 08:59 10/09/16 07:39 40 MG Magnesium Hydroxide (Milk Of Magnesia Susp) 30 ml Q6H PRN PO 10/05/16 17:00 11/04/16 16:59 Oxycodone HCl (Oxycontin Tab) 10 mg Q12H PO 10/05/16 17:00 10/19/16 16:59 10/09/16 07:42 10 MG Senna (Senokot Tab) 17.2 mg QAM PO 10/06/16 09:00 11/05/16 08:59 10/09/16 07:39 17.2 MG Acetaminophen (Tylenol Tab) 1,000 mg Q8 PRN PO 10/05/16 17:00 11/04/16 16:59 10/06/16 18:21 1,000 MG Carvedilol (Coreg Tab) 25 mg BID PO 10/05/16 21:00 11/04/16 20:59 10/09/16 07:39 25 MG Digoxin (Lanoxin Tab) 0.125 mg DAILY@1600 PO 10/05/16 16:00 11/04/16 15:59 10/09/16 15:28 0.125 MG Multivitamins (Multivitamin Tab) 1 tab QAM PO 10/06/16 09:00 11/05/16 08:59 10/09/16 07:39 1 TAB Niacin (Niacin Tab) 500 mg QAM PO 10/06/16 09:00 11/05/16 08:59 10/09/16 07:38 500 MG Albuterol Sulfate (Ventolin 0.083% 2.5MG/3ML Neb) 2.5 mg Q4H PRN INH 10/05/16 17:30 11/04/16 17:29 Albuterol (Proair Hfa) 2 puffs Q4 PRN INH 10/05/16 17:00 11/04/16 16:59 Miscellaneous Information (Consult Glycemic Management Pharmacy) 1 ea UD N/A 10/05/16 17:25 11/04/16 17:24 Insulin Aspart (novoLOG ASPART) SLIDING SCALE ACHS SC 10/05/16 21:00 11/04/16 20:59 10/09/16 13:45 8 UNITS Glucose (Glucose 40% Gel) 15-30 GRAMS 15 GRAMS... UD PRN PO 10/05/16 17:45 11/04/16 17:44 Glucose (Glucose Chew Tab) 4-8 Tablets 4 Tabl... UD PRN PO 10/05/16 17:45 11/04/16 17:44 Dextrose (Dextrose 50% 50ML Syringe) 25-50ML OF 50% DW IV FOR... UD PRN IV 10/05/16 17:45 11/04/16 17:44 Glucagon (Glucagon Inj) 1 mg UD PRN SQ 10/05/16 17:45 11/04/16 17:44 Morphine Sulfate (MoRPHine SULFATE INJ) 2 mg Q4HWA PRN IV 10/05/16 19:00 10/19/16 18:59 10/09/16 12:30 2 MG Morphine Sulfate (MoRPHine SULFATE INJ) 4 mg Q4HWA PRN IV 10/05/16 19:00 10/19/16 18:59 10/05/16 21:57 4 MG Morphine Sulfate (MoRPHine SULFATE INJ) 6 mg Q4HWA PRN IV 10/05/16 19:00 10/19/16 18:59 10/07/16 14:27 6 MG Rifampin (Rifadin Cap) 300 mg BID PO 10/06/16 21:00 11/17/16 20:59 10/09/16 07:39 300 MG Methimazole (Methimazole Tab) 10 mg DAILY PO 10/08/16 09:00 11/07/16 08:59 10/09/16 07:38 10 MG Insulin Glargine 15 unit 15 unit HS SC 10/08/16 16:45 11/07/16 16:44 10/08/16 17:25 15 UNIT Cefazolin Sodium/ Dextrose (Ancef Iv/D5 50ml) 60 ml @ 100 mls/hr Q8H IV 10/08/16 12:00 11/19/16 11:59 10/09/16 12:48 100 MLS/HR Acetaminophen (Tylenol Tab) 1,000 mg TID PO 10/08/16 14:00 11/07/16 13:59 10/09/16 13:41 1,000 MG Aspirin (Ecotrin Tab) 81 mg BID PO 10/08/16 21:00 11/07/16 20:59 10/09/16 07:38 81 MG Metformin HCl (Glucophage Tab) 1,000 mg BIDM PO 10/09/16 16:45 11/08/16 16:44 Oxycodone HCl (Roxicodone Immediate Rel Tab) 15 mg Q4HWA PRN PO 10/09/16 12:00 10/23/16 11:59 10/09/16 15:19 15 MG Celecoxib (CeleBREX CAP) 100 mg BID PO 10/09/16 11:00 11/08/16 10:59 10/09/16 12:49 100 MG Heparin Sodium (Porcine) (Heparin 10 Unit/ ml 5 ml Flush) 5 ml PRN PRN FLUSH 10/09/16 13:45 11/08/16 13:44 Assessment and Plan Problems Infection of total right knee replacement Assessment and Plan: This is a 66 yo female who presented with a septic joint following TKA several weeks ago. Septic joint: -Continue cefazolin 2 g IV q8hrs -Continue rifampin 300 mg po bid -PICC line placed for outpatient abx -Will need 6-8 weeks of IV abx per ortho -Blood and joint aspirate cultures grew out MSSA, second round preliminarily show no growth -Echocardiography showed no evidence of vegetations -Pain managed with oxycontin 15 mg po q12h, oxycodone 15 mg po q4h prn, acetaminophen 1000 mg po tid, celecoxib 100 mg po bid Congestive heart failure: -Continue to monitor for signs of fluid overload -If begins to have more symptoms, may start furosemide 40 mg po daily and increase to home dose 40 mg po bid if needed Hyperthyroid: -TSH depressed, elevated free T4 -US showed heterogeneous enlargement with an uncomplicated cyst. no need for biopsy at this time -Started methimazole. Recheck TSH in 4-6 weeks Asthma: -Continue current asthma regimen Diabetes: -Continue current diabetes control DVT prophylaxis: -On 81 mg ASA per ortho recs -SCDs and PARAMJIT stockings -Defer to ortho for resuming apixaban home dose. Continued [facility] stay due to: inadequate oral pain control, ambulation difficulties, multiple IV medications needed Discharge planning: rehab hospital
--- NOTE | 2016-10-09 16:26 | Progress Note ---
Subjective Date of Service: October 09, 2016. Subjective pt continues to improve, ID awaiting final decision on antibiotic choice, confusion is clearing Problem List Medical Problems: (1) Asthma Status: Chronic (2) Infection of total right knee replacement Status: Acute (3) Knee pain Status: Acute (4) Septic joint Status: Acute Review of Systems Constitutional: No chills, No fever Respiratory: No cough, No shortness of breath Cardiac: No chest pain, No edema Abdomen: No diarrhea, No nausea, No pain, No vomiting Musculoskeletal: + joint pain, + muscle pain, + swelling Objective Vital Signs Date Time Temp Pulse Resp B/P Pulse Ox O2 Delivery O2 Flow Rate FiO2 10/09/16 15:28 68 10/09/16 15:15 Nasal Cannula 3.0 10/09/16 15:04 36.7 80 20 102/71 98 Nasal Cannula 3.0 10/09/16 11:10 36.5 85 16 104/69 99 Nasal Cannula 3.0 10/09/16 11:00 Nasal Cannula 3.0 10/09/16 10:43 37.3 88 16 97 3.0 10/09/16 08:05 Nasal Cannula 3.0 10/09/16 07:41 37.3 88 16 146/70 97 2.0 10/09/16 04:00 36.6 94 18 146/63 96 Nasal Cannula 2.0 10/09/16 04:00 Nasal Cannula 3.0 10/09/16 00:00 36.8 92 18 125/62 97 Nasal Cannula 2.0 10/09/16 00:00 Nasal Cannula 3.0 10/08/16 20:00 Nasal Cannula 3.0 10/08/16 19:33 36.9 95 18 115/64 97 Nasal Cannula 2.0 10/08/16 17:20 94 Physical Exam General Appearance: WD/WN, + moderate distress Neck: supple, no JVD Respiratory/Chest: chest non-tender, lungs clear, normal breath sounds Cardiovascular: regular rate, rhythm, no murmur Abdomen: normal bowel sounds, non tender, soft Extremities: no pedal edema, no calf tenderness Neurologic/Psychiatric: alert, oriented x 3 Laboratory Results Last 24 Hours Test 10/08/16 16:34 10/08/16 20:39 10/09/16 06:29 10/09/16 12:17 Bedside Glucose 247 mg/dl 189 mg/dl 157 mg/dl 226 mg/dl Assessment and Plan 66 yo F with PMHX of CHF, CAD s/p IN in 2013, pacemaker insertion, DM II, Asthma , and s/p R TKA on 09/18 now admitted with septic joint replacement. Septic Joint - S/p R TKA on 09/[address] Mays admitted for Sepsis with infected right knee joint - underwent - I&D plus synovectomy and poly exchange tibial component placement antibiotic beads and closure over drains Blood culture preliminary reports are Staph species cefazolin and rifampin, ID awaiting final sensitivities to choose antibiotics DM II- Continue ISS with accu checks restarted glucophage 10/09. CHF CAD s/p [place] in 2013, s/p pacemaker placement - digoxin 0.125 daily, diltiazem 120 mg at bedtime, Lasix 40 mg by mouth twice a day, spironolactone 25 mg by mouth daily Asthma continues to be stable -Pro Air, nebulizer treatments QID and Q2H prn for shortness of breath DVT ppx: teds, scds, apixiban once surgery determines Disposition: From home, will need rehab Continued [facility] stay due to: inadequate oral pain control, ambulation difficulties, multiple IV medications needed Discharge planning: rehab hospital
[2016-10-09] MEDS: METFORMIN HCL 500 MG TAB PO SCH (18:22)
[2016-10-09] MEDS: INSULIN GLARGINE SOLOSTAR 100 UNITS/ML 3 ML PEN SC SCH (20:55)
[2016-10-10] VITALS (7 sets, daily range): BP systolic 110–138; BP diastolic 54–85; PULSE 71–104; TEMP 36.6–36.9; O2SAT 92–99
[2016-10-10] MEDS: MoRPHine SULFATE 2 MG/ML CARP IV PRN (00:57)
[2016-10-10] MEDS: CEFAZOLIN IV 2,000 MG in DEXTROSE 5% 50ML 50 ML IV SCH ×3 (03:42→19:45)
[2016-10-10] MEDS: OXYCODONE HCL IR 5 MG TAB (IMMEDIATE RELEASE) PO PRN (06:42)
--- NOTE | 2016-10-10 08:22 | Orthopedic Progress Note ---
Orthopedic Progress Note Date of Service October 10, 2016. Subjective Post OP Day: 3 Reports: feeling well, Denies: SOB, calf pain, chest pain, light headedness, nausea / vomiting Additional Notes: HAD SOME INCREASED SWELLING IN HER FEET OVERNIGHT. SEEMS TO BE RESOLVED THIS MORNING. Objective calves soft nontender, N/V intact, dressing C/D/I (PREVENA), A&O x3, toes mobile Date Time Temp Pulse Resp B/P Pulse Ox O2 Delivery O2 Flow Rate FiO2 10/10/16 08:00 36.6 98 18 130/76 93 Nasal Cannula 10/09/16 23:15 Nasal Cannula 3.0 10/09/16 23:13 36.7 84 20 106/57 97 Nasal Cannula 3.0 10/09/16 20:50 76 116/76 10/09/16 15:28 68 10/09/16 15:15 Nasal Cannula 3.0 10/09/16 15:04 36.7 80 20 102/71 98 Nasal Cannula 3.0 10/09/16 11:10 36.5 85 16 104/69 99 Nasal Cannula 3.0 10/09/16 11:00 Nasal Cannula 3.0 10/09/16 10:43 37.3 88 16 97 3.0 Assessment & Plan Assessment: POD#3 SP RIGHT I&D RIGHT TKA. Plan: PAIN MANAGEMENT- OXYCONTIN, ROXICODONE, TYLENOL DVT PROPHYLAXIS- ASA 81MG BID, TEDS, SCDS MEDICAL MANAGEMENT PT/OT- WBAT WITH [facility] DC PLANNING- PATIENT IS AGREEABLE TO [facility]. ACCEPTED AND CAN TRANSFER TODAY IV CEFAZOLIN X 6-[address] WORTHINGTON + PO RIFAMPIN PICC LINE PLACED DR. WORTHINGTON ON BOARD, APPRECIATE INPUT.
[2016-10-10] MEDS: DOCUSATE SODIUM 100 MG CAP PO SCH ×2 (09:49→20:50)
[2016-10-10] MEDS: METFORMIN HCL 500 MG TAB PO SCH ×2 (09:50→18:35)
[2016-10-10] MEDS: SENNA 8.6 MG TAB PO SCH (09:50)
[2016-10-10] MEDS: ASPIRIN 81 MG ECTAB PO SCH ×2 (09:51→20:50)
[2016-10-10] MEDS: PANTOprazole SOD 40 MG TAB PO SCH (09:52)
[2016-10-10] MEDS: CeleBREX 100 MG CAP PO SCH ×2 (09:52→20:50)
[2016-10-10] MEDS: MULTIVITAMIN TAB PO SCH (09:52)
[2016-10-10] MEDS: ACETAMINOPHEN 500 MG TAB PO SCH ×3 (09:53→20:50)
[2016-10-10] MEDS: NIACIN 500 MG TAB IMMEDIATE RELEASE PO SCH (09:53)
[2016-10-10] MEDS: RIFAMPIN 300 MG CAP PO SCH ×2 (09:54→20:50)
[2016-10-10] MEDS: METHIMAZOLE 5 MG TAB PO SCH (09:54)
[2016-10-10] MEDS: CARVEDILOL 25 MG TAB PO SCH ×2 (09:58→20:50)
[2016-10-10] MEDS: OXYCODONE HCL 10 MG TABCR (OXYCONTIN) PO SCH ×2 (10:03→21:53)
[2016-10-10] MEDS: INSULIN ASPART 100 UNITS/ML 3 ML PEN SC SCH ×4 (10:06→20:59)
[2016-10-10] MEDS ORDERED: TPZ5 PO (11:24)
[2016-10-10] MEDS ORDERED: ONDANSETRON INJ 2 MG/ML 2 ML VIAL IV STA (11:25)
[2016-10-10] MEDS ORDERED: ONDANSETRON INJ 2 MG/ML 2 ML VIAL ONE (11:29)
[2016-10-10] MEDS ORDERED: ONDANSETRON INJ 8 MG in DEXTROSE 5% 50ML 50 ML IV STA (11:38)
--- NOTE | 2016-10-10 15:20 | Medical Student: [facility] ---
Med Student Progress Note Date of Service October 10, 2016. Subjective Pt evaluation today including: conversation w/ patient, physical exam, chart review, lab review, review of studies Pain: 7/10 partly relieved by oral pain meds PO Intake: full diet Voiding: montanez catheter in place no acute events overnight. patient is feeling well, but says she still is having pain in her right leg. she reports that this is improving. she was nauseous and vomited once this afternoon, but has felt fine since then. reports no diarrhea. she is amenable to transfer to rehab today. no other symptoms to report. Review of Systems Constitutional: No chills, No fever Respiratory: No cough Cardiac: No chest pain Abdomen: + nausea, + vomiting Objective Vital Signs Date Time Temp Pulse Resp B/P Pulse Ox O2 Delivery O2 Flow Rate FiO2 10/10/16 15:11 36.7 71 20 138/85 92 Nasal Cannula 3.0 10/10/16 09:57 79 110/54 10/10/16 08:36 93 Nasal Cannula 3.0 10/10/16 08:00 36.6 98 18 130/76 93 Nasal Cannula 10/10/16 08:00 Nasal Cannula 3.0 10/09/16 23:15 Nasal Cannula 3.0 10/09/16 23:13 36.7 84 20 106/57 97 Nasal Cannula 3.0 10/09/16 20:50 76 116/76 10/09/16 15:28 68 Physical Exam General Appearance: WD/WN, no apparent distress ENT: hearing grossly normal, pharynx normal Neck: supple, no JVD Respiratory/Chest: chest non-tender, normal breath sounds, + crackles ( bibasilar, left>right) Cardiovascular: regular rate, rhythm, no edema, no gallop, no murmur Abdomen: normal bowel sounds, non tender, soft Extremities: non-tender, no pedal edema Neurologic/Psychiatric: alert, oriented x 3 Skin: normal color, no rash Laboratory Results Last 24 Hours Test 10/09/16 16:55 10/09/16 20:35 10/10/16 08:11 10/10/16 11:59 Bedside Glucose 137 mg/dl 167 mg/dl 143 mg/dl 152 mg/dl Medications Current Inpatient Medications Medications (Trade) Dose Ordered Sig/Julianna Route Start Time Stop Time Status Last Admin Dose Admin Al Hydroxide/Mg Hydroxide (Maalox Susp) 30 ml Q6H PRN PO 10/05/16 17:00 11/04/16 16:59 Docusate Sodium (coLACE CAP) 100 mg BID PO 10/05/16 21:00 11/04/16 20:59 10/10/16 09:49 100 MG Pantoprazole Sodium (Protonix Tab) 40 mg QAM PO 10/06/16 09:00 11/05/16 08:59 10/10/16 09:52 40 MG Magnesium Hydroxide (Milk Of Magnesia Susp) 30 ml Q6H PRN PO 10/05/16 17:00 11/04/16 16:59 Oxycodone HCl (Oxycontin Tab) 10 mg Q12H PO 10/05/16 17:00 10/19/16 16:59 10/10/16 10:03 10 MG Senna (Senokot Tab) 17.2 mg QAM PO 10/06/16 09:00 11/05/16 08:59 10/10/16 09:50 17.2 MG Acetaminophen (Tylenol Tab) 1,000 mg Q8 PRN PO 10/05/16 17:00 11/04/16 16:59 10/06/16 18:21 1,000 MG Carvedilol (Coreg Tab) 25 mg BID PO 10/05/16 21:00 11/04/16 20:59 10/10/16 09:58 25 MG Digoxin (Lanoxin Tab) 0.125 mg DAILY@1600 PO 10/05/16 16:00 11/04/16 15:59 10/09/16 15:28 0.125 MG Multivitamins (Multivitamin Tab) 1 tab QAM PO 10/06/16 09:00 11/05/16 08:59 10/10/16 09:52 1 TAB Niacin (Niacin Tab) 500 mg QAM PO 10/06/16 09:00 11/05/16 08:59 10/10/16 09:53 500 MG Albuterol Sulfate (Ventolin 0.083% 2.5MG/3ML Neb) 2.5 mg Q4H PRN INH 10/05/16 17:30 11/04/16 17:29 Albuterol (Proair Hfa) 2 puffs Q4 PRN INH 10/05/16 17:00 11/04/16 16:59 Miscellaneous Information (Consult Glycemic Management Pharmacy) 1 ea UD N/A 10/05/16 17:25 11/04/16 17:24 Insulin Aspart (novoLOG ASPART) SLIDING SCALE ACHS SC 10/05/16 21:00 11/04/16 20:59 10/10/16 13:27 5 UNITS Glucose (Glucose 40% Gel) 15-30 GRAMS 15 GRAMS... UD PRN PO 10/05/16 17:45 11/04/16 17:44 Glucose (Glucose Chew Tab) 4-8 Tablets 4 Tabl... UD PRN PO 10/05/16 17:45 11/04/16 17:44 Dextrose (Dextrose 50% 50ML Syringe) 25-50ML OF 50% DW IV FOR... UD PRN IV 10/05/16 17:45 11/04/16 17:44 Glucagon (Glucagon Inj) 1 mg UD PRN SQ 10/05/16 17:45 11/04/16 17:44 Morphine Sulfate (MoRPHine SULFATE INJ) 2 mg Q4HWA PRN IV 10/05/16 19:00 10/19/16 18:59 10/10/16 00:57 2 MG Morphine Sulfate (MoRPHine SULFATE INJ) 4 mg Q4HWA PRN IV 10/05/16 19:00 10/19/16 18:59 10/05/16 21:57 4 MG Morphine Sulfate (MoRPHine SULFATE INJ) 6 mg Q4HWA PRN IV 10/05/16 19:00 10/19/16 18:59 10/07/16 14:27 6 MG Rifampin (Rifadin Cap) 300 mg BID PO 10/06/16 21:00 11/17/16 20:59 10/10/16 09:54 300 MG Methimazole (Methimazole Tab) 10 mg DAILY PO 10/08/16 09:00 11/07/16 08:59 10/10/16 09:54 10 MG Insulin Glargine 15 unit 15 unit HS SC 10/08/16 16:45 11/07/16 16:44 10/09/16 20:55 15 UNIT Cefazolin Sodium/ Dextrose (Ancef Iv/D5 50ml) 60 ml @ 100 mls/hr Q8H IV 10/08/16 12:00 11/19/16 11:59 10/10/16 11:25 100 MLS/HR Acetaminophen (Tylenol Tab) 1,000 mg TID PO 10/08/16 14:00 11/07/16 13:59 10/10/16 13:30 1,000 MG Aspirin (Ecotrin Tab) 81 mg BID PO 10/08/16 21:00 11/07/16 20:59 10/10/16 09:51 81 MG Metformin HCl (Glucophage Tab) 1,000 mg BIDM PO 10/09/16 16:45 11/08/16 16:44 10/10/16 09:50 1,000 MG Oxycodone HCl (Roxicodone Immediate Rel Tab) 15 mg Q4HWA PRN PO 10/09/16 12:00 10/23/16 11:59 10/10/16 06:42 15 MG Celecoxib (CeleBREX CAP) 100 mg BID PO 10/09/16 11:00 11/08/16 10:59 10/10/16 09:52 100 MG Heparin Sodium (Porcine) (Heparin 10 Unit/ ml 5 ml Flush) 5 ml PRN PRN FLUSH 10/09/16 13:45 11/08/16 13:44 10/10/16 12:58 5 ML Assessment and Plan Assessment and Plan: This is a 66 yo female who presented with a septic joint following TKA several weeks ago. Septic joint: -Continue cefazolin 2 g IV q8hrs -Continue rifampin 300 mg po bid -PICC line placed for outpatient abx -Will need 6-8 weeks of IV abx per ortho -Blood and joint aspirate cultures grew out MSSA, second round preliminarily show no growth -Echocardiography showed no evidence of vegetations -Pain managed with oxycontin 15 mg po q12h, oxycodone 15 mg po q4h prn, acetaminophen 1000 mg po tid, celecoxib 100 mg po bid Congestive heart failure: -Continue to monitor for signs of fluid overload -Will resume furosemide 40 mg po bid on transfer to rehab Hyperthyroid: -TSH depressed, elevated free T4 -US showed heterogeneous enlargement with an uncomplicated cyst. no need for biopsy at this time -Started methimazole. Recheck TSH in 4-6 weeks Asthma: -Continue current asthma regimen Diabetes: -Continue current diabetes control DVT prophylaxis: -On 81 mg ASA per ortho recs -SCDs and PARAMJIT stockings -Defer to ortho for resuming apixaban home dose. Discharge to [facility] today. Continued [facility] stay due to: inadequate oral pain control, ambulation difficulties, multiple IV medications needed Discharge planning: rehab hospital
[2016-10-10] MEDS: DIGOXIN 0.125 MG TAB PO SCH (16:15)
--- NOTE | 2016-10-10 17:16 | Progress Note ---
Subjective Date of Service: October 10, 2016. Subjective pt did have some nausea today but abdomen examined benign Problem List Medical Problems: (1) Asthma Status: Chronic (2) Infection of total right knee replacement Status: Acute (3) Knee pain Status: Acute (4) Septic joint Status: Acute Review of Systems Constitutional: + weakness, No chills, No fever Respiratory: No cough, No shortness of breath Cardiac: No chest pain, No edema Abdomen: + nausea, + vomiting, No constipation, No diarrhea, No pain Musculoskeletal: + joint pain, + muscle pain Objective Vital Signs Date Time Temp Pulse Resp B/P Pulse Ox O2 Delivery O2 Flow Rate FiO2 10/10/16 16:15 78 10/10/16 15:11 36.7 71 20 138/85 92 Nasal Cannula 3.0 10/10/16 09:57 79 110/54 10/10/16 08:36 93 Nasal Cannula 3.0 10/10/16 08:00 36.6 98 18 130/76 93 Nasal Cannula 10/10/16 08:00 Nasal Cannula 3.0 10/09/16 23:15 Nasal Cannula 3.0 10/09/16 23:13 36.7 84 20 106/57 97 Nasal Cannula 3.0 10/09/16 20:50 76 116/76 Physical Exam General Appearance: WD/WN, no apparent distress Neck: supple, no JVD Respiratory/Chest: chest non-tender, lungs clear, normal breath sounds Cardiovascular: regular rate, rhythm, no murmur Abdomen: normal bowel sounds, non tender, soft Extremities: no pedal edema, no calf tenderness Neurologic/Psychiatric: alert, oriented x 3 Laboratory Results Last 24 Hours Test 10/09/16 20:35 10/10/16 08:11 10/10/16 11:59 Bedside Glucose 167 mg/dl 143 mg/dl 152 mg/dl Assessment and Plan 66 yo F with PMHX of CHF, CAD s/p [place] in 2013, pacemaker insertion, DM II, Asthma , and s/p R TKA on 09/18 now admitted with septic joint replacement. Septic Joint - S/p R TKA on 09/[address] Mays admitted for Sepsis with infected right knee joint - underwent - I&D plus synovectomy and poly exchange tibial component placement antibiotic beads and closure over drains Blood culture reports are Staph species cefazolin and rifampin, ID feels these will be appropriate at [facility] II- Continue ISS with accu checks restarted glucophage 10/09. CHF CAD s/p [place] in 2013, s/p pacemaker placement stable at time of transfer - digoxin 0.125 daily, diltiazem 120 mg at bedtime, Lasix 40 mg by mouth twice a day, spironolactone 25 mg by mouth daily Asthma continues to be stable -Pro Air, nebulizer treatments QID and Q2H prn for shortness of breath DVT ppx: teds, scds, apixiban Disposition: From home, will need rehab Continued [facility] stay due to: inadequate oral pain control, ambulation difficulties, multiple IV medications needed Discharge planning: rehab hospital
--- NOTE | 2016-10-10 17:16 | Infectious Disease Progress Nt ---
Progress Note Date of Service October 10, 2016. Subjective Pt evaluation today including: conversation w/ patient, physical exam, chart review, lab review, review of studies, conversation w/ consultant [employer]. vice president [employer] (ex ), review of inpatient medication list patient feeling better today, pain has improved. Remains afebrile, tolerating antibiotics thus far. All Other Systems: Reviewed and Negative Medications Current Inpatient Medications Medications (Trade) Dose Ordered Sig/Julianna Route Start Time Stop Time Status Last Admin Dose Admin Al Hydroxide/Mg Hydroxide (Maalox Susp) 30 ml Q6H PRN PO 10/05/16 17:00 11/04/16 16:59 Docusate Sodium (coLACE CAP) 100 mg BID PO 10/05/16 21:00 11/04/16 20:59 10/10/16 09:49 100 MG Pantoprazole Sodium (Protonix Tab) 40 mg QAM PO 10/06/16 09:00 11/05/16 08:59 10/10/16 09:52 40 MG Magnesium Hydroxide (Milk Of Magnesia Susp) 30 ml Q6H PRN PO 10/05/16 17:00 11/04/16 16:59 Oxycodone HCl (Oxycontin Tab) 10 mg Q12H PO 10/05/16 17:00 10/19/16 16:59 10/10/16 10:03 10 MG Senna (Senokot Tab) 17.2 mg QAM PO 10/06/16 09:00 11/05/16 08:59 10/10/16 09:50 17.2 MG Acetaminophen (Tylenol Tab) 1,000 mg Q8 PRN PO 10/05/16 17:00 11/04/16 16:59 10/06/16 18:21 1,000 MG Carvedilol (Coreg Tab) 25 mg BID PO 10/05/16 21:00 11/04/16 20:59 10/10/16 09:58 25 MG Digoxin (Lanoxin Tab) 0.125 mg DAILY@1600 PO 10/05/16 16:00 11/04/16 15:59 10/10/16 16:15 0.125 MG Multivitamins (Multivitamin Tab) 1 tab QAM PO 10/06/16 09:00 11/05/16 08:59 10/10/16 09:52 1 TAB Niacin (Niacin Tab) 500 mg QAM PO 10/06/16 09:00 11/05/16 08:59 10/10/16 09:53 500 MG Albuterol Sulfate (Ventolin 0.083% 2.5MG/3ML Neb) 2.5 mg Q4H PRN INH 10/05/16 17:30 11/04/16 17:29 Albuterol (Proair Hfa) 2 puffs Q4 PRN INH 10/05/16 17:00 11/04/16 16:59 Miscellaneous Information (Consult Glycemic Management Pharmacy) 1 ea UD N/A 10/05/16 17:25 11/04/16 17:24 Insulin Aspart (novoLOG ASPART) SLIDING SCALE ACHS SC 10/05/16 21:00 11/04/16 20:59 10/10/16 13:27 5 UNITS Glucose (Glucose 40% Gel) 15-30 GRAMS 15 GRAMS... UD PRN PO 10/05/16 17:45 11/04/16 17:44 Glucose (Glucose Chew Tab) 4-8 Tablets 4 Tabl... UD PRN PO 10/05/16 17:45 11/04/16 17:44 Dextrose (Dextrose 50% 50ML Syringe) 25-50ML OF 50% DW IV FOR... UD PRN IV 10/05/16 17:45 11/04/16 17:44 Glucagon (Glucagon Inj) 1 mg UD PRN SQ 10/05/16 17:45 11/04/16 17:44 Morphine Sulfate (MoRPHine SULFATE INJ) 2 mg Q4HWA PRN IV 10/05/16 19:00 10/19/16 18:59 10/10/16 00:57 2 MG Morphine Sulfate (MoRPHine SULFATE INJ) 4 mg Q4HWA PRN IV 10/05/16 19:00 10/19/16 18:59 10/05/16 21:57 4 MG Morphine Sulfate (MoRPHine SULFATE INJ) 6 mg Q4HWA PRN IV 10/05/16 19:00 10/19/16 18:59 10/07/16 14:27 6 MG Rifampin (Rifadin Cap) 300 mg BID PO 10/06/16 21:00 11/17/16 20:59 10/10/16 09:54 300 MG Methimazole (Methimazole Tab) 10 mg DAILY PO 10/08/16 09:00 11/07/16 08:59 10/10/16 09:54 10 MG Insulin Glargine 15 unit 15 unit HS SC 10/08/16 16:45 11/07/16 16:44 10/09/16 20:55 15 UNIT Cefazolin Sodium/ Dextrose (Ancef Iv/D5 50ml) 60 ml @ 100 mls/hr Q8H IV 10/08/16 12:00 11/19/16 11:59 10/10/16 11:25 100 MLS/HR Acetaminophen (Tylenol Tab) 1,000 mg TID PO 10/08/16 14:00 11/07/16 13:59 10/10/16 13:30 1,000 MG Aspirin (Ecotrin Tab) 81 mg BID PO 10/08/16 21:00 11/07/16 20:59 10/10/16 09:51 81 MG Metformin HCl (Glucophage Tab) 1,000 mg BIDM PO 10/09/16 16:45 11/08/16 16:44 10/10/16 09:50 1,000 MG Oxycodone HCl (Roxicodone Immediate Rel Tab) 15 mg Q4HWA PRN PO 10/09/16 12:00 10/23/16 11:59 10/10/16 06:42 15 MG Celecoxib (CeleBREX CAP) 100 mg BID PO 10/09/16 11:00 11/08/16 10:59 10/10/16 09:52 100 MG Heparin Sodium (Porcine) (Heparin 10 Unit/ ml 5 ml Flush) 5 ml PRN PRN FLUSH 10/09/16 13:45 11/08/16 13:44 10/10/16 12:58 5 ML Objective Vital Signs Date Time Temp Pulse Resp B/P Pulse Ox O2 Delivery O2 Flow Rate FiO2 10/10/16 16:15 78 10/10/16 15:11 36.7 71 20 138/85 92 Nasal Cannula 3.0 10/10/16 09:57 79 110/54 10/10/16 08:36 93 Nasal Cannula 3.0 10/10/16 08:00 36.6 98 18 130/76 93 Nasal Cannula 10/10/16 08:00 Nasal Cannula 3.0 10/09/16 23:15 Nasal Cannula 3.0 10/09/16 23:13 36.7 84 20 106/57 97 Nasal Cannula 3.0 10/09/16 20:50 76 116/76 Physical Exam General Appearance: WD/WN, no apparent distress Eyes: normal inspection, EOMI, sclerae normal ENT: normal ENT inspection, pharynx normal Neck: supple, no adenopathy, trachea midline Respiratory/Chest: chest non-tender, lungs clear, normal breath sounds, no respiratory distress Cardiovascular: regular rate, rhythm, no gallop, no murmur Abdomen: normal bowel sounds, non tender, soft, no organomegaly Extremities: non-tender, no calf tenderness Neurologic/Psychiatric: alert, oriented x 3 Skin: normal color, warm/dry, no rash, + pertinent finding ( Surgical dressing intact) Lymphatic: no adenopathy Laboratory Results RUN DATE: 10/10/16 [facility] LAB PAGE 1 RUN TIME: 1210 Specimen Inquiry PATIENT: MATTY HARVEY LOC: W U # : [id number] AGE/SX: 66/F ROOM: [facility] REG : 10/05/[address]: Omer Fine M.D. : 1950 BED: 1 DIS : STATUS: ADM IN TLOC: SPEC #: [id number] GISEL: 10/05/16 STATUS: COMP REQ #: [id number] RECD: 10/05/[address] [facility] [address]: Ian Alvarez, P.AAndrzej SOURCE: [facility]INT [facility] ENTR: 10/05/[address] [facility] [address]: Wyatt Vela MD [facility]: KNEE RIGHT Anthony Bonilla M.D. Maciejczyk, John F., MD McLucas, Patrick B. D.O. ORDERED: AER/WYATT CULTSMR COMMENTS: Has Specimen Been Obtained/Collected? Y Procedure Result Verified Site GRAM STAIN Final 10/06/16-0719 RESULT MANY WBCs SEEN MANY GRAM POSITIVE COCCI Phoned results to ROSHAN ANTONY on 10/06/16 at 0718 by Anay Hollis. Results were verbalized back to GERMÁN. OR AER/WYATT CULT Final 10/10/16-1210 Organism 1 STAPHYLOCOCCUS AUREUS QUANITY MANY SENS SENSITIVITY TO FOLLOW ANAS NO ANAEROBES ISOLATED. 1. STAPHYLOCOCCUS AUREUS Target Route Dose RX AB Cost M.I.C. 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 LFTs ordered to insure no rifampin toxicity. Will discuss and follow.
[2016-10-10 19:35] LABS: ALKALINE PHOSPHATASE 123 U/L (45-117); ALT/SGPT 7 U/L (12-78); AST/SGOT 6 U/L (15-37)
[2016-10-10] MEDS: MoRPHine SULFATE 4 MG/ML 1 ML CARP\\VIAL IV PRN (20:36)
[2016-10-10] MEDS: INSULIN GLARGINE SOLOSTAR 100 UNITS/ML 3 ML PEN SC SCH (20:59)
[2016-10-11] MEDS: CEFAZOLIN IV 2,000 MG in DEXTROSE 5% 50ML 50 ML IV SCH ×2 (03:31→12:22)
[2016-10-11 07:54] VITALS: BP 146/90; PULSE 94; TEMP 36.7; O2SAT 97
[2016-10-11] MEDS: OXYCODONE HCL 10 MG TABCR (OXYCONTIN) PO SCH (08:27)
[2016-10-11] MEDS: OXYCODONE HCL IR 5 MG TAB (IMMEDIATE RELEASE) PO PRN (08:27)
[2016-10-11] MEDS: CARVEDILOL 25 MG TAB PO SCH (08:28)
[2016-10-11] MEDS: DOCUSATE SODIUM 100 MG CAP PO SCH (08:28)
[2016-10-11] MEDS: ASPIRIN 81 MG ECTAB PO SCH (08:28)
[2016-10-11] MEDS: MULTIVITAMIN TAB PO SCH (08:29)
[2016-10-11] MEDS: ACETAMINOPHEN 500 MG TAB PO SCH ×2 (08:30→13:21)
[2016-10-11] MEDS: METHIMAZOLE 5 MG TAB PO SCH (08:30)
[2016-10-11] MEDS: NIACIN 500 MG TAB IMMEDIATE RELEASE PO SCH (08:31)
[2016-10-11] MEDS: METFORMIN HCL 500 MG TAB PO SCH (08:32)
[2016-10-11] MEDS: CeleBREX 100 MG CAP PO SCH (08:32)
[2016-10-11] MEDS: SENNA 8.6 MG TAB PO SCH (08:33)
[2016-10-11] MEDS: RIFAMPIN 300 MG CAP PO SCH (08:33)
[2016-10-11] MEDS: PANTOprazole SOD 40 MG TAB PO SCH (08:33)
[2016-10-11 08:56] VITALS: O2SAT 97
[2016-10-11] MEDS: INSULIN ASPART 100 UNITS/ML 3 ML PEN SC SCH ×2 (10:35→13:19)
[2016-10-11 11:05] VITALS: BP 146/90; PULSE 94; TEMP 36.7; O2SAT 97
--- NOTE | 2016-10-11 12:26 | Medical Student: [facility] ---
Med Student Progress Note Date of Service October 11, 2016. Subjective Pt evaluation today including: conversation w/ patient, physical exam, chart review, lab review, review of studies Pain: moderate, partly relieved by oral pain meds PO Intake: full diet Voiding: montanez catheter in place no acute events overnight. patient reports some nausea which is relieved by zofran. also has new pain in right upper back/side. it hurts when she touches it. no other symptoms. Review of Systems Constitutional: No chills, No fever Respiratory: No cough, No shortness of breath Cardiac: No chest pain, No orthopnea Abdomen: + nausea, No pain, No vomiting Musculoskeletal: + joint pain Objective Vital Signs Date Time Temp Pulse Resp B/P Pulse Ox O2 Delivery O2 Flow Rate FiO2 10/11/16 11:05 36.7 94 18 97 Nasal Cannula 10/11/16 08:56 97 Nasal Cannula 3.0 10/11/16 08:00 Nasal Cannula 3.0 10/11/16 07:54 36.7 94 18 146/90 97 Nasal Cannula 3.0 10/10/16 23:25 36.9 104 18 120/67 99 Nasal Cannula 3.0 10/10/16 23:00 98 Nasal Cannula 3.0 10/10/16 20:45 88 125/70 10/10/16 16:15 78 10/10/16 16:00 Nasal Cannula 3.0 10/10/16 15:11 36.7 71 20 138/85 92 Nasal Cannula 3.0 Physical Exam General Appearance: WD/WN, no apparent distress ENT: hearing grossly normal, pharynx normal Neck: supple, no JVD Respiratory/Chest: chest non-tender, lungs clear, normal breath sounds, + pertinent finding (sharp pain to palpation of right lower rib on back and side) Cardiovascular: regular rate, rhythm, no edema, no gallop, no murmur Abdomen: normal bowel sounds, non tender, soft Extremities: non-tender, no pedal edema Neurologic/Psychiatric: alert, oriented x 3 Skin: normal color, no rash Laboratory Results Last 24 Hours Test 10/10/16 17:12 10/10/16 17:40 10/10/16 20:35 10/11/16 08:40 Bedside Glucose 132 mg/dl 165 mg/dl 111 mg/dl Total Bilirubin 0.2 mg/dl Direct Bilirubin < 0.1 mg/dl Aspartate Amino Transf (AST/SGOT) 6 U/L Alanine Aminotransferase (ALT/SGPT) 7 U/L Alkaline Phosphatase 123 U/L Total Protein 6.3 gm/dl Albumin 1.8 gm/dl Medications Current Inpatient Medications Medications (Trade) Dose Ordered Sig/Julianna Route Start Time Stop Time Status Last Admin Dose Admin Al Hydroxide/Mg Hydroxide (Maalox Susp) 30 ml Q6H PRN PO 10/05/16 17:00 11/04/16 16:59 Docusate Sodium (coLACE CAP) 100 mg BID PO 10/05/16 21:00 11/04/16 20:59 10/11/16 08:28 100 MG Pantoprazole Sodium (Protonix Tab) 40 mg QAM PO 10/06/16 09:00 11/05/16 08:59 10/11/16 08:33 40 MG Magnesium Hydroxide (Milk Of Magnesia Susp) 30 ml Q6H PRN PO 10/05/16 17:00 11/04/16 16:59 Oxycodone HCl (Oxycontin Tab) 10 mg Q12H PO 10/05/16 17:00 10/19/16 16:59 10/11/16 08:27 10 MG Senna (Senokot Tab) 17.2 mg QAM PO 10/06/16 09:00 11/05/16 08:59 10/11/16 08:33 17.2 MG Acetaminophen (Tylenol Tab) 1,000 mg Q8 PRN PO 10/05/16 17:00 11/04/16 16:59 10/06/16 18:21 1,000 MG Carvedilol (Coreg Tab) 25 mg BID PO 10/05/16 21:00 11/04/16 20:59 10/11/16 08:28 25 MG Digoxin (Lanoxin Tab) 0.125 mg DAILY@1600 PO 10/05/16 16:00 11/04/16 15:59 10/10/16 16:15 0.125 MG Multivitamins (Multivitamin Tab) 1 tab QAM PO 10/06/16 09:00 11/05/16 08:59 10/11/16 08:29 1 TAB Niacin (Niacin Tab) 500 mg QAM PO 10/06/16 09:00 11/05/16 08:59 10/11/16 08:31 500 MG Albuterol Sulfate (Ventolin 0.083% 2.5MG/3ML Neb) 2.5 mg Q4H PRN INH 10/05/16 17:30 11/04/16 17:29 Albuterol (Proair Hfa) 2 puffs Q4 PRN INH 10/05/16 17:00 11/04/16 16:59 Miscellaneous Information (Consult Glycemic Management Pharmacy) 1 ea UD N/A 10/05/16 17:25 11/04/16 17:24 Insulin Aspart (novoLOG ASPART) SLIDING SCALE ACHS SC 10/05/16 21:00 11/04/16 20:59 10/11/16 10:35 8 UNITS Glucose (Glucose 40% Gel) 15-30 GRAMS 15 GRAMS... UD PRN PO 10/05/16 17:45 11/04/16 17:44 Glucose (Glucose Chew Tab) 4-8 Tablets 4 Tabl... UD PRN PO 10/05/16 17:45 11/04/16 17:44 Dextrose (Dextrose 50% 50ML Syringe) 25-50ML OF 50% DW IV FOR... UD PRN IV 10/05/16 17:45 11/04/16 17:44 Glucagon (Glucagon Inj) 1 mg UD PRN SQ 10/05/16 17:45 11/04/16 17:44 Morphine Sulfate (MoRPHine SULFATE INJ) 2 mg Q4HWA PRN IV 10/05/16 19:00 10/19/16 18:59 10/10/16 00:57 2 MG Morphine Sulfate (MoRPHine SULFATE INJ) 4 mg Q4HWA PRN IV 10/05/16 19:00 10/19/16 18:59 10/10/16 20:36 4 MG Morphine Sulfate (MoRPHine SULFATE INJ) 6 mg Q4HWA PRN IV 10/05/16 19:00 10/19/16 18:59 10/07/16 14:27 6 MG Rifampin (Rifadin Cap) 300 mg BID PO 10/06/16 21:00 11/17/16 20:59 10/11/16 08:33 300 MG Methimazole (Methimazole Tab) 10 mg DAILY PO 10/08/16 09:00 11/07/16 08:59 10/11/16 08:30 10 MG Insulin Glargine 15 unit 15 unit HS SC 10/08/16 16:45 11/07/16 16:44 10/10/16 20:59 15 UNIT Cefazolin Sodium/ Dextrose (Ancef Iv/D5 50ml) 60 ml @ 100 mls/hr Q8H IV 10/08/16 12:00 11/19/16 11:59 10/11/16 03:31 100 MLS/HR Acetaminophen (Tylenol Tab) 1,000 mg TID PO 10/08/16 14:00 11/07/16 13:59 10/11/16 08:30 1,000 MG Aspirin (Ecotrin Tab) 81 mg BID PO 10/08/16 21:00 11/07/16 20:59 10/11/16 08:28 81 MG Metformin HCl (Glucophage Tab) 1,000 mg BIDM PO 10/09/16 16:45 11/08/16 16:44 10/11/16 08:32 1,000 MG Oxycodone HCl (Roxicodone Immediate Rel Tab) 15 mg Q4HWA PRN PO 10/09/16 12:00 10/23/16 11:59 10/11/16 08:27 15 MG Celecoxib (CeleBREX CAP) 100 mg BID PO 10/09/16 11:00 11/08/16 10:59 10/11/16 08:32 100 MG Heparin Sodium (Porcine) (Heparin 10 Unit/ ml 5 ml Flush) 5 ml PRN PRN FLUSH 10/09/16 13:45 11/08/16 13:44 10/11/16 08:35 5 ML Assessment and Plan Assessment and Plan: This is a 66 yo female who presented with a septic joint following TKA several weeks ago. Septic joint: -Continue cefazolin 2 g IV q8hrs -Continue rifampin 300 mg po bid -PICC line placed for outpatient abx -Will need 6-8 weeks of IV abx per ortho -Blood and joint aspirate cultures grew out MSSA, second round preliminarily show no growth -Echocardiography showed no evidence of vegetations -Pain managed with oxycontin 15 mg po q12h, oxycodone 15 mg po q4h prn, acetaminophen 1000 mg po tid, celecoxib 100 mg po bid Congestive heart failure: -Continue to monitor for signs of fluid overload -Will resume furosemide 40 mg po bid on transfer to rehab Hyperthyroid: -TSH depressed, elevated free T4 -US showed heterogeneous enlargement with an uncomplicated cyst. no need for biopsy at this time -Started methimazole. Recheck TSH in 4-6 weeks Asthma: -Continue current asthma regimen Diabetes: -Continue current diabetes control DVT prophylaxis: -On 81 mg ASA per ortho recs -SCDs and PARAMJIT stockings -Defer to ortho for resuming apixaban home dose. Discharge to [facility] today. Continued [facility] stay due to: inadequate oral pain control, ambulation difficulties, multiple IV medications needed Discharge planning: rehab hospital
--- NOTE | 2016-10-11 14:48 | Orthopedic Progress Note ---
Orthopedic Progress Note Date of Service October 11, 2016. Subjective Post OP Day: 4 Additional Notes: Feeling tired this afternoon. The knee was hurting a bit earlier but seems to be settling down. No new complaints currently. Objective calves soft nontender, N/V intact, dressing C/D/I, A&O x3, toes mobile Date Time Temp Pulse Resp B/P Pulse Ox O2 Delivery O2 Flow Rate FiO2 10/11/16 11:05 36.7 94 18 97 Nasal Cannula 10/11/16 08:56 97 Nasal Cannula 3.0 10/11/16 08:00 Nasal Cannula 3.0 10/11/16 07:54 36.7 94 18 146/90 97 Nasal Cannula 3.0 10/10/16 23:25 36.9 104 18 120/67 99 Nasal Cannula 3.0 10/10/16 23:00 98 Nasal Cannula 3.0 10/10/16 20:45 88 125/70 10/10/16 16:15 78 10/10/16 16:00 Nasal Cannula 3.0 10/10/16 15:11 36.7 71 20 138/85 92 Nasal Cannula 3.0 Assessment & Plan Assessment: POD#4 SP RIGHT I&D RIGHT TKA. Plan: PAIN MANAGEMENT- OXYCONTIN, ROXICODONE, TYLENOL,CELEBREX DVT PROPHYLAXIS- ASA 81MG BID, TEDS, SCDS MEDICAL MANAGEMENT PT/OT- WBAT WITH [facility] DC PLANNING- PATIENT IS AGREEABLE TO [facility]. ACCEPTED AND CAN TRANSFER TODAY IV CEFAZOLIN X 6-[address] WORTHINGTON + PO RIFAMPIN PICC LINE PLACED Inhouse Planning Pain Management: Celebrex, Oxycontin, Oxy IR DVT Prophylaxis: TEDs, SCDs, other (Apixaban) Discharge Planning Discharge Planning: rehab hospital Therapy: Physical Therapy
--- NOTE | 2016-10-15 08:36 | Discharge Summary ---
Orthopedic Discharge Summary Admission Date/Reason October 05, 2016 at 17:12 Infection Of Total Right Knee Replacement. Discharge Date/Disposition October 10, 2016 Rehab Diagnosis Principal Diagnosis: infected right TKA Procedure(s) Performed I&D and poly exchange right TKA Consultations Dr Vela- Infectious Disease Dr Bonilla- Medical Management Medication Reconciliation New Medications: Cefazolin Sod (Cefazolin Sodium) 1 Gm Inj 2 GM IV Q8H for 42 Days Methimazole (Methimazole) 5 Mg Tab 10 MG PO DAILY, #30 TAB 6 Refills Rifampin (Rifampin) 300 Mg Cap 300 MG PO BID, #60 CAP 2 Refills Continued Medications: Acetaminophen (Tylenol) 500 Mg Tab 1000 MG PO Q8 PRN for Pain or Fever for 30 Days, #180 TAB (This prescription has been renewed) Albuterol Sulfate (Proair Respiclick) 108 Mcg/Act Aer 2 PUFF INH Q4 PRN for SOB/Wheezing Albuterol Sulfate (Albuterol Sulfate) 0.63 Mg/3 Ml Neb 1 VIAL NEB Q4H PRN for SOB/Wheezing for 12 Days, #150 ML 1 Refill Apixaban (Eliquis) 2.5 Mg Tab 5 MG PO BID Aspirin (Aspirin Ec) 81 Mg Tab 81 MG PO QAM Carvedilol (Coreg) 25 Mg Tab 25 MG PO BID, TAB Celecoxib (CeleBREX) 200 Mg Cap 200 MG PO BID, #60 CAP (This prescription has been renewed) Digoxin (Digoxin) 0.125 Mg Tab 1 TAB PO HS Diltiazem Hcl Ext Rel (Tiazac) 120 Mg Capcr 120 MG PO HS, CAP Fish Oil ([place]-3) 1 Ea Cap 1 CAP PO BID, CAP Furosemide (Lasix) 40 Mg Tab 40 MG PO BID, TAB Glipizide (Glucotrol) 10 Mg Tab 10 MG PO BID, TAB Insulin Glargine (Lantus) 100 Unit/Ml Inj 12 UNITS SC HS, VIAL Linagliptin (Tradjenta) 5 Mg Tab 1 TAB PO QAM for 90 Days, #90 TAB 3 Refills Metformin Hcl (Glucophage) 1,000 Mg Tab 1000 MG PO BID, TAB Morphine Sulfate (Ms Contin) 15 Mg Tab 15 MG PO Q12, #20 TAB (This prescription has been renewed) Multiple Vitamin (Multi Vitamin Daily) 1 Tab Tab 1 TAB PO QAM Niacin (Niacin) 500 Mg Tab 500 MG PO QAM, TAB Ondansetron Hcl (Zofran) 8 Mg Tab 8 MG PO Q8 PRN for Nausea, TAB Oxycodone Ir (Roxicodone Ir) 5 Mg Tab 5-10 MG PO Q4H PRN for Pain, #60 TAB (This prescription has been renewed) Oxygen (Oxygen) Gas 1.5-2 LITERS NA HS/PRN PRN for Shortness of Breath Senna (Senokot) 8.6 Mg Tab 17.2 MG PO HS, TAB Spironolactone (Aldactone) 25 Mg Tab 25 MG PO QAM, TAB Admission Physical Exam As per Admitting History & Physical. Discharge Instructions Please refer to the electronic Patient Visit Report (Discharge Instructions) for additional information.
== END 2016-10-11 15:35 | DRG 466 ==
LOC: ENRESERVDT → ENRESERVTM → EDBD 13:37 → C.EDB 13:38 → C.MSW 17:12 → C.2T 10-06 20:35 → C.MSW 10-09 11:00
PROVIDERS: ADMIT Orthopaedic Surgery Sports Medicine; ATTEND Orthopaedic Surgery Sports Medicine
PROC: 0MDN0ZZ Extraction of Right Knee Bursa and Ligament, Open Approach (ICD-10-PCS; principal; 2016-10-05)
PROC: 0SPC0JZ Removal of Synthetic Substitute from Right Knee Joint, Open Approach (ICD-10-PCS; principal; 2016-10-05)
PROC: 0MBN0ZZ Excision of Right Knee Bursa and Ligament, Open Approach (ICD-10-PCS; principal; 2016-10-05)
PROC: 0SRC0JZ Replacement of Right Knee Joint with Synthetic Substitute, Open Approach (ICD-10-PCS; principal; 2016-10-05)
PROC: 3E0U029 Introduction of Other Anti-infective into Joints, Open Approach (ICD-10-PCS; principal; 2016-10-05)
PROC: 0Y9F3ZX Drainage of Right Knee Region, Percutaneous Approach, Diagnostic (ICD-10-PCS; 2016-10-06)
PROC: 02HV33Z Insertion of Infusion Device into Superior Vena Cava, Percutaneous Approach (ICD-10-PCS; 2016-10-08)
DX: T84.54XA Infection and inflammatory reaction due to internal left knee prosthesis, initial encounter (principal); A41.01 Sepsis due to Methicillin susceptible Staphylococcus aureus; G93.41 Metabolic encephalopathy; M00.861 Arthritis due to other bacteria, right knee; I50.22 Chronic systolic (congestive) heart failure; I25.2 Old myocardial infarction; J45.909 Unspecified asthma, uncomplicated; E11.9 Type 2 diabetes mellitus without complications; I10 Essential (primary) hypertension; E66.9 Obesity, unspecified; Z79.4 Long term (current) use of insulin; Z95.810 Presence of automatic (implantable) cardiac defibrillator; Y92.009 Unspecified place in unspecified non-institutional (private) residence as the place of occurrence of the external cause; Z87.891 Personal history of nicotine dependence; Z68.33 Body mass index [BMI] 33.0-33.9, adult; Y79.2 Prosthetic and other implants, materials and accessory orthopedic devices associated with adverse incidents

== ENCOUNTER → 2016-11-29 | Outpatient (CLI) | payer OTHER ==
[~2016-11-29] MED LIST changes: +ALBU0.633 NEB; -ALBUTEROL NEBULIZER NEB; +CLB/200 PO; -CLB200 PO; +KFZAV1 IV; +MORP-157 PO; +OXYC1TAB3 PO; +RFM300 PO; -RXC5 PO; +SENN-61 PO; -SNK PO; +TPZ5 PO
[2016-11-29 14:19] LABS: BASO % 0.2 %; BASO ABS # 0.02 K/uL (0-0.2); COMPLETE YES; EOS % 1.2 %; HEMATOCRIT 34.5 % (37-47); IG% 0.2 %; LYMPH % 22.7 %; LYMPH ABS # 2.05 K/uL (1.2-3.4); MEAN CELL VOLUME 88.9 fL (80-100); MEAN CORPUSCULAR HEMOGLOBIN 26.5 pg (25-34); MEAN CORPUSCULAR HGB CONC 29.9 g/dl (32-36); MEAN PLATELET VOLUME 9.7 fL (7.4-10.4); MONO % 8.4 %; NEUT % 67.3 %; PLATELET COUNT 341 K/uL (130-400); RED BLOOD COUNT 3.88 M/uL (4.2-5.4); WHITE BLOOD COUNT 9.04 K/uL (4.8-10.8)
--- NOTE | 2016-12-04 08:16 | CODING QUERY NO DIAGNOSIS ---
TREATMENT RENDERED WITHOUT A DIAGNOSIS To promote full compliance with coding requirements relating to patient care, physician participation is requested in all cases of senior materials analyst uncertainty. Please assist us with providing a diagnosis/symptom for the test(s) below: A diagnosis/symptom was not documented on your Order. A valid diagnosis/symptom is required to bill all insurances. Please remember that we are unable to code a diagnosis of rule out, probable, possible, questionable, or suspected. Tests that require a diagnosis: DOS 11/29 * CBC, ESR DIAGNOSIS: * AERO/ANAE Culture & GS DIAGNOSIS: Provider Signature: Date: Thank you Sue Putnam Health Information Management Once completed, please kindly fax back to [phone] For questions please call [phone]
== END | disposition home or self-care (01) ==
LOC: C.LABSPEC 12:40
PROVIDERS: ATTEND General Practice
DX: T79.8XXA Other early complications of trauma, initial encounter (principal); L97.929 Non-pressure chronic ulcer of unspecified part of left lower leg with unspecified severity; X58.XXXA Exposure to other specified factors, initial encounter

== ENCOUNTER 2019-12-02 06:54 | Observation (INO) ==
--- NOTE | 2019-11-19 15:44 | PAT Medication Instructions ---
Medication Instructions Date of Service November 19, 2019 Home Medications albuterol sulfate 1 inh INHALATION QID PRN albuterol sulfate 1.25 mg INHALATION QID PRN apixaban 5 mg PO BID aspirin 81 mg PO QAM carvedilol 25 mg PO BID diclofenac sodium 2 g TOPICAL QID PRN fluticasone furoate-vilanterol [Breo Ellipta] 1 inh INHALATION QAM furosemide 40 mg PO BID glipizide 5 mg PO BID insulin glargine [Lantus U-100 Insulin] 30 unit SUBCUT HS insulin lispro [Humalog U-100 Insulin] 1 - 2 unit SUBCUT DAILY PRN linagliptin [Tradjenta] 5 mg PO QAM metformin 500 mg PO BID Centrum Silver] 1 tab PO DAILY niacin 500 mg PO DAILY omega 3-qtc-pfh-fish oil [Fish Oil] 1 cap PO DAILY spironolactone 25 mg PO QAM tiotropium bromide [Spiriva Respimat] 2 puff INHALATION QAM ASK your prescriber and surgeon apixaban 5 mg PO BID aspirin 81 mg PO QAM STOP taking 2 weeks before surgery (or as soon as possible if surgery is within 2 weeks) omega 6-grr-ouw-fish oil [Fish Oil] 1 cap PO DAILY STOP taking 48 hours before surgery niacin 500 mg PO DAILY STOP taking 24 hours before surgery diclofenac sodium 2 g TOPICAL QID PRN DO NOT take the morning of surgery furosemide 40 mg PO BID glipizide 5 mg PO BID insulin lispro [Humalog U-100 Insulin] 1 - 2 unit SUBCUT DAILY PRN linagliptin [Tradjenta] 5 mg PO QAM metformin 500 mg PO BID Centrum Silver] 1 tab PO DAILY spironolactone 25 mg PO QAM Take morning of surgery With a small sip of water, OTHERWISE NOTHING TO EAT OR DRINK AFTER MIDNIGHT: albuterol sulfate 1 inh INHALATION QID PRN (if needed) albuterol sulfate 1.25 mg INHALATION QID PRN (if needed) carvedilol 25 mg PO BID fluticasone furoate-vilanterol [Breo Ellipta] 1 inh INHALATION QAM tiotropium bromide [Spiriva Respimat] 2 puff INHALATION QAM Take evening before surgery albuterol sulfate 1 inh INHALATION QID PRN (if needed) albuterol sulfate 1.25 mg INHALATION QID PRN (if needed) carvedilol 25 mg PO BID furosemide 40 mg PO BID glipizide 5 mg PO BID insulin glargine [Lantus U-100 Insulin] 30 unit SUBCUT HS insulin lispro [Humalog U-100 Insulin] 1 - 2 unit SUBCUT DAILY PRN (if needed) metformin 500 mg PO BID Other Notes If you have any questions please call us at [phone] or [phone] or [phone] or [phone]
--- NOTE | 2019-11-19 15:48 | Anesthesiology Consultation ---
Date of Service November 19, 2019 Assessment & Plan (1) Encounter for pre-operative examination: - Awaiting most recent pacer check (Dr. Najera). Per PAT assessment on 11/18: Travel screen- Lives in [facility]. No known COVID-19 positive contacts. No current COVID-19 related symptoms. Patient states COVID testing was done 2 weeks ago (had dry mouth after medication change)- result was negative. - Check BSG AM DOS - Cardiology note: 11/13/19: "She is considered intermediate risk for surgery. If able, stop Eliquis two days prior to surgery and perform the surgery on day three." - Eliquis/ASA instructions per surgeon/cardiology. Chart Review Chart Review: Patient seen in Pre Admission Testing Teaching & Discussion Pre-Anesthesia Teaching/Discussion Notes: Instructed NPO after midnight before surgery,except medications with 15 cc of water. Medication instructions provided according to the PAT guidelines. History Surgery Operation Date: 12/02/19 09:20 Proposed Procedures p Right Knee Extensor Mechanism and Meidal Patellafemoral Ligament Reconstruction - Faisal Lovelace MD Height/Weight Height: 5 ft 5.5 in Weight: 100.7 kg Allergies Allergy/AdvReac Type Severity Reaction Status Date / Time sotalol Allergy Unknown TINGLING Verified 11/19/19 15:16 OF FACE, NUMBESS AND TINGLING OF HANDS, HEADACHE Medications Home Medications Medication Instructions Recorded Confirmed Last Taken albuterol sulfate 1 inh INHALATION QID PRN 11/19/19 11/19/19 Unknown albuterol sulfate 1.25 mg INHALATION QID PRN 11/19/19 11/19/19 Unknown apixaban 5 mg PO BID 11/19/19 11/19/19 Unknown aspirin 81 mg PO QAM 11/19/19 11/19/19 Unknown carvedilol 25 mg PO BID 11/19/19 11/19/19 Unknown diclofenac sodium 2 g TOPICAL QID PRN 11/19/19 11/19/19 Unknown fluticasone furoate-vilanterol 1 inh INHALATION QAM 11/19/19 11/19/19 Unknown [Breo Ellipta] furosemide 40 mg PO BID 11/19/19 11/19/19 Unknown glipizide 5 mg PO BID 11/19/19 11/19/19 Unknown insulin glargine [Lantus U-100 30 unit SUBCUT HS 11/19/19 11/19/19 Unknown Insulin] insulin lispro [Humalog U-100 1 - 2 unit SUBCUT DAILY PRN 11/19/19 11/19/19 Unknown Insulin] linagliptin [Tradjenta] 5 mg PO QAM 11/19/19 11/19/19 Unknown metformin 500 mg PO BID 11/19/19 11/19/19 Unknown ulgrkmkq-hza-DY-lycopen-lutein 1 tab PO DAILY 11/19/19 11/19/19 Unknown [Centrum Silver] niacin 500 mg PO DAILY 11/19/19 11/19/19 Unknown omega 7-ybm-bcg-fish oil [Fish Oil] 1 cap PO DAILY 11/19/19 11/19/19 Unknown spironolactone 25 mg PO QAM 11/19/19 11/19/19 Unknown tiotropium bromide [Spiriva 2 puff INHALATION QAM 11/19/19 11/19/19 Unknown Respimat] Past Medical History Medical History (Updated 11/19/19 @ 19:54 by Ivon Baldwin) Asthma Atrial fibrillation CHF (congestive heart failure) Diabetes IDDM Dysphagia occasionally Myocardial Infarction x2 (06/2012 & 2013). no cardiac cath, no stents On home oxygen therapy Pacemaker placed 2013. last checked 06/2019 ([id number]) Thyroid nodule Exercise / Class Metabolic Activity III < 4 Walking/Shop/Light housework Past Family History Family History (Updated 11/19/19 @ 15:45 by Sandra France RN) Other No family history of adverse response to anesthesia Past Surgical History Surgical History (Updated 11/19/19 @ 19:54 by Ivon Baldwin) History of adenoidectomy History of bilateral tubal ligation History of cataract surgery right History of cholecystectomy lap with umbilical hernia repair History of colonoscopy History of tonsillectomy S/P laser cataract surgery left S/P revision of total knee right S/P total knee arthroplasty right Past Anesthesia History No Hx of Anesthesia Complications and No Family Hx of Anesthesia Complications History of PONV No Hx of PONV and No Hx of Motion Sickness Social History Smoking Status: Light tobacco smoker (previous heavier use) Do You Dip or Chew Tobacco: No Hx Alcohol Use: No Hx Substance Use: No Physical Exam Vital Signs VITALS BP 110/77 P 85 TEMP 98.0 SP02 94%RA RESP 16 PHYSICAL Full neck and c-spine range of motion. Full TMJ range of motion. TMD 3 finger breaths Mallampati Score 3 Dentition: full dentures upper/lower Lungs: + crackles throughout Cardiac: regular rate and rhythm Spine: normal Carotid arteries: negative bruit Extremities: no edema Testing Laboratory Results 11/19/19 16:00 11/19/19 16:00 PT 10.4 Seconds (9.0-12.0) 11/19/19 16:00 INR 1.0 (0.9-1.1) 11/19/19 16:00 APTT 29.9 Seconds (21.0-31.0) 11/19/19 16:00 Blood Type O Negative 11/19/19 16:00 Antibody Screen NEGATIVE 11/19/19 16:00 Electrocardiogram Date: 11/19/19 Atrial-sensed ventricular-paced rhythm at 79bpm. Biventricular pacemaker detected. unconfirmed report. Chest X-Ray Date: 11/19/19 FINDINGS: PA and lateral chest radiographs are compared to study dated 10/08/2016. A 3-lead cardiac AICD is unchanged in position. This partially obscures the left mid chest. The heart is mildly enlarged noting atherosclerotic calcification of the thoracic aorta. The pulmonary vasculature is noncongested. A hiatal hernia is noted. Emphysematous change is suspected. Chronic interstitial thickening is similar to previous. No airspace consolidation or pleural effusion is identified. Foci of scarring/atelectasis are present throughout both lungs. Apical scarring is noted. There is no pneumothorax. The skeletal structures are osteopenic. The bony thorax appears intact. IMPRESSION: 1. Cardiomegaly and AICD. There is no radiographic evidence of congestive failu re. 2. Suspect emphysema. 3. No airspace consolidation or pleural effusion is identified.
[2019-11-19 16:28] LABS: Basophils # (auto) 0.03 K/uL (0-0.2); Basophils % (auto) 0.3 %; Eosinophils # (auto) 0.13 K/uL (0-0.5); Eosinophils % (auto) 1.2 %; Hematocrit (blood only) 42.9 % (37-47); Hemoglobin 14.1 g/dL (12.0-16.0); Immature Granulocytes # (auto) 0.02 K/uL (0.00-0.02); Immature Granulocytes % (auto) 0.2 %; Lymphocytes # (auto) 3.44 K/uL (1.2-3.4); Mean Corpuscular Hemoglobin 29.3 pg (25-34); Mean Corpuscular Hgb Conc 32.9 g/dL (32-36); Mean Platelet Volume 10.3 fL (7.4-10.4); Monocytes # (auto) 0.73 K/uL (0.11-0.59); Neutrophils # (auto) 6.07 K/uL (1.4-6.5); Neutrophils % (auto) 58.3 %; Platelet Count 280 K/uL (130-400); RDW Coefficient of Variation 13.2 % (11.5-14.5); RDW Standard Deviation 43.4 fL (36.4-46.3); Red Blood Count 4.82 M/uL (4.2-5.4); White Blood Count 10.42 K/uL (4.8-10.8)
[2019-11-19 16:35] LABS: BUN Creatinine Ratio 25.2 (10-20); Calcium 9.6 mg/dl (8.5-10.1); Est GFR (African American) 72.2; Est GFR (Non-African American) 62.3; Potassium 3.9 mmol/L (3.5-5.1)
[2019-11-19 16:38] LABS: Partial Thromboplastin Ratio 1.1; Partial Thromboplastin Time 29.9 Seconds (21.0-31.0); Prothrombin Time 10.4 Seconds (9.0-12.0)
--- NOTE | 2019-11-19 16:47 | XRay Report ---
TWO VIEW CHEST CLINICAL HISTORY: Preoperative examination. FINDINGS: PA and lateral chest radiographs are compared to study dated 10/08/2016. A 3-lead cardiac AI CD is unchanged in position. This partially obscures the left mid chest. The heart is mildly enlarged noting atherosclerotic calcification of the thoracic aorta. The pulmonary vasculature is noncongeste d. A hiatal hernia is noted. Emphysematous change is suspected. Chronic interstitial thickening is si milar to previous. No airspace consolidation or pleural effusion is identified. Foci of scarring/atel ectasis are present throughout both lungs. Apical scarring is noted. There is no pneumothorax. The sk eletal structures are osteopenic. The bony thorax appears intact. IMPRESSION: 1. Cardiomegaly and AICD. There is no radiographic evidence of congestive failure. 2. Suspect emphysema. 3. No airspace consolidation or pleural effusion is identified. ACT 112: Negative or not required by law. Electronically signed by: Dakota Motta M.D. 11/19/2019 4:46 PM
--- NOTE | 2019-11-19 22:27 | Electrocardiogram Report ---
Test Reason : Blood Pressure : / mmHG Vent. Rate : 079 BPM Atrial Rate : 079 BPM P-R Int : 188 ms QRS Dur : 126 ms QT Int : 424 ms P-R-T Axes : 084 012 076 degrees QTc Int : 486 ms Atrial-sensed ventricular-paced rhythm Biventricular pacemaker detected Abnormal ECG When compared with ECG of 07-OCT-2016 12:54, Vent. rate has decreased BY 24 BPM Confirmed by Peter Vee ([id number]) on 11/19/2019 10:27:19 PM Referred By: Faisal Lovelace Confirmed By:Peter Vee
[2019-11-20 06:06] LABS: Estimated Average Glucose 189 mg/dl; Hemoglobin A1C 8.2 % (4.5-5.6)
--- NOTE | 2019-11-30 09:12 | History & Physical Report ---
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 Consent will be obtained the morning of surgery to proceed with right knee extensor mechanism and medial patellofemoral ligament reconstruction using Achilles allograft. Patient will have preoperative lab work obtained. She has an appointment to see her PCP at [facility] as well as her aircraft restorer before surgery. Patient will stop her Eliquis at least 3 days preop. She already has crutches and a walker for after surgery. Patient is aware of the surgical risks associated with COVID-19. She is currently asymptomatic of any COVID-19 symptoms. Patient will obtain coronavirus nasal swab testing prior to surgery and quarantine after being tested. History of Present Illness Chief Complaint: Right knee instability Primary Care Provider: Vanessa Pinzon PA-C This 69-year-old white female presents to the office with complaints of right knee instability that has been present since September 2016. Patient has a history of previous right total knee arthroplasty September 18, 2016 done at another facility. She had a postop infection and subsequent sepsis. She underwent open debride ment, poly-exchange, and antibiotic bead placement October 07, 2016. Since then she has had patellofemoral instability. She was able to compensate for about 2 years. Last year she developed increasing pain and swelling of the right knee along with buckling and weakness of the leg while walking. She is now using a cane. No history of injury or fall. She denies any numbness or tingling. She denies any fevers or chills. No drainage, warmth, or redness to the knee since her initial spacer exchange and placement of antibiotic beads. She notes some minor loss of motion in the knee. Pain is worse when climbing hills or stairs. Preoperative imaging has been obtained. She elects to proceed with surgical intervention in hopes of improving her function and pain control. Allergies Allergy/AdvReac Type Severity Reaction Status Date / Time sotalol Allergy Unknown TINGLING Verified 11/19/19 15:16 OF FACE, NUMBESS AND TINGLING OF HANDS, HEADACHE Home Medications Home Medications Medication Instructions Recorded Confirmed Type albuterol sulfate 1 inh INHALATION QID PRN 11/19/19 11/19/19 History albuterol sulfate 1.25 mg INHALATION QID PRN 11/19/19 11/19/19 History apixaban 5 mg PO BID 11/19/19 11/19/19 History aspirin 81 mg PO QAM 11/19/19 11/19/19 History carvedilol 25 mg PO BID 11/19/19 11/19/19 History diclofenac sodium 2 g TOPICAL QID PRN 11/19/19 11/19/19 History fluticasone furoate-vilanterol 1 inh INHALATION QAM 11/19/19 11/19/19 History [Breo Ellipta] furosemide 40 mg PO BID 11/19/19 11/19/19 History glipizide 5 mg PO BID 11/19/19 11/19/19 History insulin glargine [Lantus U-100 30 unit SUBCUT HS 11/19/19 11/19/19 History Insulin] insulin lispro [Humalog U-100 1 - 2 unit SUBCUT DAILY PRN 11/19/19 11/19/19 History Insulin] linagliptin [Tradjenta] 5 mg PO QAM 11/19/19 11/19/19 History metformin 500 mg PO BID 11/19/19 11/19/19 History kzinfnzo-fgf-CU-lycopen-lutein 1 tab PO DAILY 11/19/19 11/19/19 History [Centrum Silver] niacin 500 mg PO DAILY 11/19/19 11/19/19 History omega 6-yvc-yiw-fish oil [Fish Oil] 1 cap PO DAILY 11/19/19 11/19/19 History spironolactone 25 mg PO QAM 11/19/19 11/19/19 History tiotropium bromide [Spiriva 2 puff INHALATION QAM 11/19/19 11/19/19 History Respimat] Past Med/Surg History Medical History Asthma Atrial fibrillation CHF (congestive heart failure) Diabetes IDDM Dysphagia occasionally Myocardial Infarction x2 (06/2012 & 2013). no cardiac cath, no stents On home oxygen therapy Pacemaker placed 2013. last checked 06/2019 ([id number]) Thyroid nodule Surgical History History of adenoidectomy History of bilateral tubal ligation History of cataract surgery right History of cholecystectomy lap with umbilical hernia repair History of colonoscopy History of tonsillectomy S/P laser cataract surgery left S/P revision of total knee right S/P total knee arthroplasty right Family History Other No family history of adverse response to anesthesia Social History Preferred Language: Norwegian Communication Ability: Effective Urology Physician Assistant Required: No Beliefs That Will Affect Care: None Current Living Situation: Alone Feels Safe at Home: Yes Smoking Status: Light tobacco smoker (previous heavier use) Tobacco Type: cigarettes ; Cigarettes Per Day: 1 cig a day ; Second Hand Exposure: Yes ; Hx Alcohol Use: No Hx Substance Use: No Review of Systems Review of Systems: A total of 10 systems are reviewed and are significant only for above-stated conditions. Physical Exam Physical Exam: Vitals: Height 164.5 cm weight 100.7 kg BMI 37.2 oral temperature 36.2 BP 122/80 pulse 87 O2 sat 93% on room air General: Well-developed, well-nourished, elderly white female, in no acute distress. Sitting in a chair. Alert and oriented. Skin: Warm and dry with good turgor. No rashes or lesions. No ecchymosis or erythema. Mild intra-articular effusion in the right knee. Well-healed surgical scars present. The patient is not diaphoretic. No abrasions. HEENT: Normocephalic atraumatic. Eyes PERRLA, EOMI. No conjunctiva or scleral injection. Nares patent bilaterally without turbinate enlargement. No significant drainage. No epistaxis. Oropharynx exam deferred due to COVID precautions. Heart: Heart RRR. No MGR. Peripheral pulses are 2+. Lungs: Lungs are clear to auscultation. No crackles rhonchi or wheezing. Good air movement. The patient is able to take a deep breath. Abdomen: Abdomen was inspected, auscultated, and palpated. Obese. Bowel sounds present x 4. Soft, nontender to palpation. No hepato-splenomegaly. No masses noted. Musculoskeletal: Right knee evaluation reveals a lack of terminal extension of about 5 degrees. Flexion to 100 degrees. She has tenderness with palpation along the peripatellar area with lack of tissue palpable medially. There is visible lateral tracking of the patella. Stable collateral ligaments. Strength is 4+/5 for resisted knee extension. It is 5/5 for resisted flexion. Ambulates with a antalgic gait. Neurologic: Gross sensation is intact across both lower extremities by soft touch, though she has decreased subjective sensation into the ankle and foot on the right. Peripheral pulses are 2+. Results & Data Results & Data ([facility]) Diagnostic Findings Radiographic imaging previously obtained shows the right total knee replacement with laterally subluxed patella. No sign of any gross loosening.
[~2019-12-02 06:54] MED LIST changes: -ACET-1256 PO; -ALBU0.633 NEB; -ALBU18002 INH; -ASPI81TA28 PO; +BUPIVACAINE 0.5 % 5 MG/1 ML MPF 30ML VIAL ONE; +BUPIVACAINE 0.5 % 5 MG/1 ML PF 10ML VIAL ONE; -CARV25TA2 PO; +CEFAZOLIN 2000MG 2,000 MG/15 ML SYR IV SCH; -CLB/200 PO; -DILT120C68 PO; -ELQ25 PO; -FRS/40 PO; -GLIP10TA3 PO; -INSDGI SC; -KFZAV1 IV; +LACTATED RINGER'S 1,000 ML IV SCH; -LINA1TAB PO; -LNX125 PO; +LR 15ML/HR IV SCH; -METF-384 PO; -MORP-157 PO; -MULT-884 PO; -NIAC500T11 PO; -OMEG10007 PO; -ONDA8TAB6 PO; -OXGN; -OXYC1TAB3 PO; -RFM300 PO; +ROPIVACAINE 0.5% 5 MG/ML 30 ML VIAL ONE; +ROPIVACAINE 0.5% HCL/PF 150 MG, BUPIVACAINE 0.5% MPF 30 ML, EPINEPHrine 0.15 MG, Ketoro... INFIL SCH; -SENN-61 PO; -SPIR25TA PO; -TPZ5 PO; +VANCOMYCIN CONSULT ACTIVE PRN; +VANCOMYCIN HCL 1,500 MG in SODIUM CHLORIDE 0.9% 500 ML IV SCH
[2019-12-02] MEDS ORDERED: MIDAZOLAM HCL 1 MG/ML 2ML VIAL ONE (07:16)
[2019-12-02] MEDS ORDERED: LIDOCAINE HCL 2% 2 ML VIAL/AMP(20MG/ML) INFIL ONE (07:46)
[2019-12-02] MEDS ORDERED: DEXAMETHASONE SOD INJ 4 MG/ML VIAL ONE (07:46)
[2019-12-02] MEDS ORDERED: ONDANSETRON INJ 2 MG/ML 2 ML VIAL ONE (07:46)
[2019-12-02] MEDS ORDERED: PROPOFOL IV EMULSION 10 MG/ML 20 ML VIAL IV ONE (07:46)
--- NOTE | 2019-12-02 08:17 | History & Physical Bridge Note ---
Date of Service December 02, 2019 History & Physical Bridge Note I have examined the patient, reviewed the History & Physical and in the interval since the performance of the History & Physical I have noted the following changes of clinical significance:site marked/consent obtained/covid screen negative. no changes noted
[2019-12-02] MEDS ORDERED: ORTHO JOINT ANESTHETIC ONE (08:33)
[2019-12-02] MEDS ORDERED: ePHEDrine sulfate 50 MG/ML AMP IV PRN (08:58)
[2019-12-02] MEDS ORDERED: PROMETHAZINE HCL 12.5 MG in SODIUM CHLORIDE 0.9% 50 ML IV PRN (08:58)
[2019-12-02] MEDS ORDERED: DEXAMETHASONE SOD INJ 4 MG/ML VIAL IV PRN (08:58)
[2019-12-02] MEDS ORDERED: HYDROmorphone INJ 2 MG/ML SYR/VIAL IV PRN (08:58)
[2019-12-02] MEDS ORDERED: ONDANSETRON INJ 2 MG/ML 2 ML VIAL IV PRN ×2 (08:58→12:10)
[2019-12-02] MEDS ORDERED: ATROPINE SULFATE 0.1 MG/ML 10ML SYR IV PRN (08:58)
[2019-12-02] MEDS ORDERED: METOCLOPRAMIDE HCL INJ 5 MG/ML 2 ML VIAL IV PRN ×2 (08:58→12:10)
[2019-12-02] MEDS ORDERED: fentaNYL citrate 100 MCG/2 ML VIAL ONE (09:22)
[2019-12-02] MEDS ORDERED: KETOROLAC 30 MG/ML VIAL ONE (09:33)
--- NOTE | 2019-12-02 10:40 | Operative Report ---
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 I identified the patient and participated in the time-out.: Yes Procedure Operation Date: 12/02/19 08:50 Actual Procedures p Right Knee Extensor Mechanism and Medial Patellafemoral Ligament Reconstruction with Achilles Allograft(Right) - Faisal Lovelace MD Surgeon CHAN Lovelace MD Coke Worker toña [place] Estimated Blood Loss 25 Findings Consistent with Post-Op Diagnosis Specimens none Drains none Complications none Disposition Accompanied Patient To Recovery: Yes Disposition: Recovery Room Indications This 69-year-old white female presented to the office with complaints of recurrent right knee instability. She previously underwent total knee arthroplasty in 2016 and had a subsequent infection that required irrigation, poly-exchange, and antibiotic bead use. She has had chronic patellar instability since then. Patient elected to proceed with surgical intervention after being educated about potential risks and outcomes. Preoperative imaging was obtained. Description of Procedure Patient was administered a regional block and then taken to the operating room where she was given general anesthesia. She was prepped and draped in the usual sterile fashion. Please see Dr. Lovelace's operative report for specifics of the procedure. I was present for the entire case from initial patient positioning through final wound closure. Assistance was provided in tissue traction, hemostasis, hardware placement, and final wound closure. Patient was taken to the recovery room in satisfactory condition. I attest to the content of the Intraoperative Record and any orders documented therein. Any exceptions are noted below.
--- NOTE | 2019-12-02 10:43 | Operative Report ---
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 I identified the patient and participated in the time-out.: Yes Procedure Operation Date: 12/02/19 08:50 Actual Procedures p Right Knee Extensor Mechanism and Medial Patellafemoral Ligament Reconstruction with Achilles Allograft(Right) - Faisal Lovelace MD Surgeon Faisal Lovelace MD Production Mechanic MD Devante; MORELIA Maurer Estimated Blood Loss 25 Findings Consistent with Post-Op Diagnosis Specimens None Complications none Disposition Accompanied Patient To Recovery: Yes Disposition: Recovery Room Description of Procedure Supine, standard prep and drape, time out, Tourniquet Right Knee Extensor Mechanism and Medial Patellafemoral Ligament Reconstruction with Achilles Allograft Please see DR Lovelace's procedure notes for specific details I was present throughout the case, assisted for wound closure and transferred the patient to PACU in stable condition I attest to the content of the Intraoperative Record and any orders documented therein. Any exceptions are noted below.
[2019-12-02] MEDS: fentaNYL citrate 100 MCG/2 ML VIAL IV PRN ×2 (11:06→11:11)
--- NOTE | 2019-12-02 11:32 | Operative Report (OR) ---
DATE OF OPERATION: 12/02/2019 SURGEON: Faisal Lovelace MD. SCHEDULE MANAGER: Dr. Kelvin Low. SECOND SCHEDULE MANAGER: Trenton Maurer PA-C. 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 OPERATION PERFORMED: Extensor mechanism reconstruction right knee with MPFL reconstruction right knee using Achilles allograft. PERIOPERATIVE SITUATION: The patient presents to me years after having a knee replaced about 4 years where she noticed she had near immediate dysfunction of inability to straighten her knee and weakness, felt like her kneecap was moving. At this point in time, she wishes me to try to fix it. She understands that there are no guarantees and the risks and consequences of the procedure were well described in the consent. This is the right lower extremity. DESCRIPTION OF PROCEDURE: The patient appropriately identified, site verified, consent verified. Right lower extremity was prepped and draped in usual routine fashion. The old incision was utilized. Tourniquet was inflated to 275-300 mmHg for a total of approximately 34 minutes. Full thickness flaps raised. Defect was identified. Patella was subluxated laterally. The joint was opened. Care taken to protect the implant. Flaps were then raised of the extensor mechanism to mobilize. A lateral release was performed. Patella baja was released. The patella had good mobility. Did not do anything with the implants that looked fine. Nothing was loose. Once this was done, the medial condyle area was identified and the Schottle's point identified and a socket made 20 mm deep. The Achilles allograft bone plug was then placed in a roughly 20 mm in length and secured with an 8 mm round head screw with excellent purchase. This was then sewed into the area as well with #2 Vicryl. It was then passed through the extensor mechanism from medial to lateral and looped over the patella. A [id number]-[id number]-pvrj repair was then carried out with #2-0 Vicryl, which closed the gap down very, very well. The patella tracked well and then this was augmented with the MPFL reconstruction, which was also repaired to the patella, to the soft tissue and the areas with #2 Vicryl and #1 Vicryl. Once this was all fixed, the patella tracked well. It will go from 0-90 degrees easily. The wound was then irrigated, tourniquet was deflated, no major bleeding encountered. The wound was then closed with 2-0 Vicryl and stainless steel clips. Appropriate dressing applied. The patient will be full weightbearing with no knee bending for 2 weeks. Start range of motion at that point in time. Can do straight leg raise with a knee immobilizer on. DVT prophylaxis per her baseline. She is on chronic anticoagulation. She resumed that tonight. Follow up for potential discharge tomorrow. I attest to the content of the Intraoperative Record and any orders documented therein. Any exceptions are noted below. ANA MARÍA
--- NOTE | 2019-12-02 11:43 | XRay Report ---
XR knee RT 1 or 2V routine CLINICAL HISTORY: s/p extensor mechanism reconstruction/do not bend COMPARISON: 08/03/2019 DISCUSSION: There are postsurgical changes of a total right knee arthroplasty and patellar resurfacin g. No fractures or subluxations are visualized. There are overlying skin jesus. There is gas presen t within the soft tissues consistent with recent surgery. There are multiple small loose bodies proje cted over the proximal tibial metaphysis medially. There is interference screws are visualized within the medial femoral condyle. IMPRESSION: Postsurgical changes as described above. ACT 112: Negative or not required by law. Electronically signed by: Jaison Gallo M.D. 12/02/2019 11:42 AM
--- NOTE | 2019-12-02 11:53 | Anesthesiology Progress Note ---
Date of Service December 02, 2019 Anesthesia Post Procedure Vital Signs Vital Signs: Temp Pulse Pulse Resp BP BP Pulse Ox 12/02/19 11:45 83 18 137/74 98 12/02/19 11:30 36.5 C 85 19 143/79 H 98 12/02/19 11:20 82 18 146/77 H 97 12/02/19 11:10 80 28 H 159/97 H 99 12/02/19 11:00 82 24 170/100 H 100 12/02/19 10:50 83 16 180/104 H 100 12/02/19 10:43 36.3 C L 87 18 161/99 H 100 12/02/19 08:46 77 18 142/87 H 94 12/02/19 08:26 36.8 C 92 H 20 142/99 H 94 Pain Intensity Right Knee: Pain Intensity: 3 Transfer of Care Handoff Completed per policy Notes Mental Status: alert / awake / arousable and participated in evaluation Patient Amnestic to Procedure: Yes Nausea / Vomiting: adequately controlled Pain: adequately controlled Airway Patency, RR, SpO2: stable & adequate BP & HR: stable & adequate Hydration State: stable & adequate Anesthetic Complications: no major complications apparent
--- NOTE | 2019-12-02 12:04 | Progress Notes ---
DATE: 12/02/2019 SUBJECTIVE: Status post extensor mechanism and MPFL reconstruction right knee for chronic patellar instability following a total knee replacement done elsewhere. At this point in time, hospital course has been uneventful. She is seen in the Recovery Room. She is doing well. Denies chest pain, shortness of breath, fever, chills, nausea, vomiting or headache. Postop x-rays look excellent. Neurovascular check is intact. ASSESSMENT: Doing well. PLAN: Discharge to home tomorrow with appropriate followup in 2 weeks. She will keep her knee still for 2 weeks. She will be fully weightbearing. She will wear the knee immobilizer constantly. She is not to get the wound wet. DVT prophylaxis per protocol.
[2019-12-02] MEDS ORDERED: DiphenhydrAMINE HCL 50 MG/ML VIAL IV PRN (12:10)
[2019-12-02] MEDS ORDERED: MAGNESIUM HYDROXIDE SUSP 30 ML UDC PO PRN (12:10)
[2019-12-02] MEDS ORDERED: ALBUTEROL HFA 8 GM INHALER INH PRN (12:10)
[2019-12-02] MEDS ORDERED: bisacodyL 10 MG SUPP PR PRN (12:10)
[2019-12-02] MEDS ORDERED: NALOXONE HCL 0.4 MG/1 ML VIAL/CARP IV PRN (12:10)
[2019-12-02] MEDS ORDERED: SODIUM CHLORIDE 0.9% 1000ML 1,000 ML IV SCH (12:10)
[2019-12-02] MEDS ORDERED: OXYCODONE HCL IR 5 MG TAB (IMMEDIATE RELEASE) PO PRN (12:10)
[2019-12-02] MEDS ORDERED: ALUMINUM/MAGNESIUM SUSP 30 ML UDC PO PRN (12:10)
[2019-12-02] MEDS ORDERED: HYDROmorphone INJ 0.5 MG/0.5 ML SYR IV PRN (12:10)
[2019-12-02] MEDS ORDERED: ALBUTEROL 0.083% NEBU SOLN 3 ML VIAL INH PRN (12:53)
[2019-12-02] MEDS ORDERED: GLUCOSE 10 TABS/TUBE PO PRN (13:00)
[2019-12-02] MEDS ORDERED: GLUCAGON FOR INJ 1 MG VIAL IM PRN (13:00)
[2019-12-02] MEDS ORDERED: CARBOHYDRATES FOR HYPOGLYCEMIA PO PRN (13:00)
[2019-12-02] MEDS ORDERED: GLUCOSE 40% GEL 15 GM TUBE PO PRN (13:00)
[2019-12-02] MEDS ORDERED: DEXTROSE 50% 50 ML SYRINGE IV PRN (13:00)
--- NOTE | 2019-12-02 13:44 | Discharge Summary (DS) ---
Date of discharge 12/03/2019 if she does well overnight. CHIEF COMPLAINT: Right knee instability. HISTORY OF PRESENT ILLNESS: Had a knee replacement done elsewhere with significant dysfunction and tissue dysfunction and tearing chronically of the extensor mechanism. At this point in time, she cannot stand and push off easily. She has significant pain as the patella subluxates. She is cleared for surgery and understands that there are no guarantees. Surgical course immediately went well. At this point in time, she is sitting up in bed, has no issues. Denies chest pain, shortness of breath, fever, chills, nausea, vomiting or headache. Postop x-rays look excellent. MEDICATIONS: Med reconciliation sheet is extensive. Please see sheet. PAST MEDICAL HISTORY: Remarkable for asthma, atrial fibrillation, congestive heart failure, diabetes, dysphagia, myocardial infarct history, home oxygen, pacemaker, thyroid nodule. PAST SURGICAL HISTORY: Remarkable for adenoidectomy, tubal ligation, cataract surgery, cholecystectomy, hernia repair, tonsillectomy, right knee surgery x2. FAMILY HISTORY: Unremarkable. SOCIAL HISTORY: Reveals that she has family, speaks [place], feels safe at home. Does smoke. Secondhand smoke exposure is positive. Alcohol, denies. REVIEW OF SYSTEMS: Reveals no new findings. No chest pain, shortness of breath, fever, chills, nausea, vomiting or headache. Postop x-rays look excellent. ASSESSMENT: Doing well status post extensor mechanism MPFL reconstruction with Achilles allograft. PLAN: To discharge her home tomorrow. DVT prophylaxis per protocol. She will resume all of her preoperative medications. She is on apixaban 5 mg b.i.d. We will start that tomorrow. She will be full weightbearing, but not move the knee until 2 weeks when she comes in for staple removal. She understands this.
[2019-12-02] MEDS: INSULIN ASPART 100 UNITS/ML 3 ML PEN SC SCH ×3 (13:55→20:50)
[2019-12-02] MEDS: KETOROLAC TROMETHAMINE 15 MG/ML VIAL IV SCH ×2 (13:58→17:40)
[2019-12-02] MEDS: ACETAMINOPHEN 500 MG TAB PO SCH ×2 (14:40→21:05)
[2019-12-02] MEDS: FUROSEMIDE 40 MG TAB PO SCH (16:26)
[2019-12-02] MEDS: ASCORBIC ACID 500 MG TAB PO SCH (17:40)
[2019-12-02] MEDS: FERROUS GLUCONATE 324 MG TAB PO SCH (17:40)
[2019-12-02] MEDS: CEFAZOLIN 2000MG 2,000 MG/15 ML SYR IV SCH (17:46)
[2019-12-02] MEDS ORDERED: INSULIN ASPART PER UNIT 10 UNITS in SYRINGE 0 ML SC STA (20:45)
[2019-12-02] MEDS ORDERED: INSULIN ASPART 100 UNITS/ML 3 ML PEN SC ONE (20:47)
[2019-12-02] MEDS: carvediloL 25 MG TAB PO SCH (21:05)
[2019-12-02] MEDS: SENNA 8.6 MG TAB PO SCH ×2 (21:05→21:06)
[2019-12-02] MEDS: DOCUSATE SODIUM 100 MG CAP PO SCH ×2 (21:05→21:06)
[2019-12-02] MEDS ORDERED: INSULIN ASPART 100 UNITS/ML 3 ML PEN SC STA (22:44)
[2019-12-02] MEDS ORDERED: INSULIN GLARGINE SOLOSTAR 100 UNITS/ML 3 ML PEN SC SCH (23:00)
[2019-12-03] MEDS: CEFAZOLIN 2000MG 2,000 MG/15 ML SYR IV SCH (00:24)
[2019-12-03] MEDS: KETOROLAC TROMETHAMINE 15 MG/ML VIAL IV SCH ×2 (00:24→05:30)
[2019-12-03] MEDS ORDERED: INSULIN ASPART 100 UNITS/ML 3 ML PEN SC SCH (02:30)
[2019-12-03] MEDS: ACETAMINOPHEN 500 MG TAB PO SCH ×2 (05:30→13:06)
[2019-12-03 06:53] LABS: Hematocrit (blood only) 33.2 % (37-47); Hemoglobin 10.8 g/dL (12.0-16.0); Mean Corpuscular Hemoglobin 29.3 pg (25-34); Mean Corpuscular Hgb Conc 32.5 g/dL (32-36); Platelet Count 234 K/uL (130-400); RDW Coefficient of Variation 13.3 % (11.5-14.5); Red Blood Count 3.69 M/uL (4.2-5.4)
[2019-12-03 07:25] LABS: BUN Creatinine Ratio 28.8 (10-20); Creatinine Clr Calc Pharmacy 73.8 ml/min; Est GFR (African American) 79.3; Est GFR (Non-African American) 68.5; Potassium 4.2 mmol/L (3.5-5.1)
--- NOTE | 2019-12-03 07:25 | Progress Notes ---
DATE: 12/03/2019 SUBJECTIVE: Postop check status post extensor mechanism reconstruction, right lower extremity. At this point in time, the patient is doing well. She states her pain is better than it has been preop. She notes that she has no numbness or tingling in her feet. She can do ankle pumps and can do a unassisted straight leg raise. She is bearing full weight on the leg with the immobilizer on. A.m. labs are pending. Her glucoses were high last evening but with appropriate management are now at roughly 200 at 2:30 this morning. ASSESSMENT: Overall doing well. PLAN: To discharge to home today. Will not need a dressing change. Do not remove the knee immobilizer, keep that in place for 2 weeks, and then have her return to the office for staple removal and to initiate physical therapy at that point in time. She states she understands the plan. Resume her preoperative anticoagulation today.
--- NOTE | 2019-12-03 07:38 | Anesthesiology Progress Note ---
Date of Service December 03, 2019 Anesthesia Post Procedure Vital Signs Vital Signs: Temp Pulse Pulse Resp BP BP Pulse Ox 12/03/19 02:36 37.0 C 79 16 130/77 95 12/03/19 00:42 77 16 95 12/02/19 22:49 37.2 C 78 16 102/66 94 12/02/19 21:03 36.7 C 18 106/57 L 96 12/02/19 15:15 36.6 C 81 18 144/81 H 95 12/02/19 14:00 14 116/67 94 12/02/19 13:00 84 18 124/77 98 12/02/19 12:30 82 16 129/81 98 12/02/19 12:00 36.7 C 82 16 137/83 95 12/02/19 11:45 83 18 137/74 98 12/02/19 11:30 36.5 C 85 19 143/79 H 98 12/02/19 11:20 82 18 146/77 H 97 12/02/19 11:10 80 28 H 159/97 H 99 12/02/19 11:00 82 24 170/100 H 100 12/02/19 10:50 83 16 180/104 H 100 12/02/19 10:43 36.3 C L 87 18 161/99 H 100 12/02/19 08:46 77 18 142/87 H 94 12/02/19 08:26 36.8 C 92 H 20 142/99 H 94 Pain Intensity Right Knee: Pain Intensity: 5 Transfer of Care Handoff Completed per policy Notes Mental Status: alert / awake / arousable and participated in evaluation Patient Amnestic to Procedure: Yes Nausea / Vomiting: adequately controlled Pain: adequately controlled Airway Patency, RR, SpO2: stable & adequate BP & HR: stable & adequate Hydration State: stable & adequate Anesthetic Complications: no major complications apparent and Pt Satisfied with anesthetic care
[2019-12-03] MEDS: FERROUS GLUCONATE 324 MG TAB PO SCH (08:06)
[2019-12-03] MEDS: ASCORBIC ACID 500 MG TAB PO SCH (08:06)
[2019-12-03] MEDS ORDERED: APIXABAN 5 MG TABLET PO SCH (09:00)
[2019-12-03] MEDS ORDERED: SPIRONOLACTONE 25 MG TAB PO SCH (09:00)
[2019-12-03] MEDS ORDERED: MULTIVITAMIN TAB PO SCH (09:00)
[2019-12-03] MEDS ORDERED: UMECLIDINIUM BROMIDE 62.5MCG/BLISTER 7 PUFFS/INHALER INH SCH (09:00)
[2019-12-03] MEDS ORDERED: NIACIN 500 MG TAB PO SCH (09:00)
[2019-12-03] MEDS ORDERED: FLUTICASONE/VILANTEROL 100/25MCG 14 PUFFS/INHALER INH SCH (09:00)
[2019-12-03] MEDS ORDERED: ASPIRIN 81 MG ECTAB PO SCH (09:00)
[2019-12-03] MEDS: DOCUSATE SODIUM 100 MG CAP PO SCH (09:16)
[2019-12-03] MEDS: carvediloL 25 MG TAB PO SCH (09:17)
[2019-12-03] MEDS: FUROSEMIDE 40 MG TAB PO SCH (09:18)
[2019-12-03] MEDS: INSULIN ASPART 100 UNITS/ML 3 ML PEN SC SCH ×2 (09:20→12:51)
== END 2019-12-03 14:15 | disposition home health service (06) ==
LOC: ASU 06:54 → 3E 06:54